=== PATIENT | male | born 1940 | race Two or more races ===

== ENCOUNTER 2023-07-04 13:54 | Emergency (ER) | payer MEDICARE ==
--- NOTE | 2023-07-04 14:01 | ED ---
Extremity Problem HPI - General Source: patient, family, RN notes reviewed Mode of arrival: ambulatory Limitations: no limitations <Malou Valenzuela - Last Filed: 07/04/23 14:00> <Arthur Hernández - Last Filed: 07/04/23 15:49> - General Stated complaint: Pain in right foot Time Seen by Provider: 07/04/23 14:00 - History of Present Illness Initial comments: QN: Patient is a 82 year old male presenting to the ER with a chief complint of right foot swelling. He states swelling for the past couple of days. He reports pain started in the arch of his foot. Denies any known injuries. Patient sent from urgent care to rule out DVT. (Malou Valenzuela) - Related Data Allergies Allergy/AdvReac Type Severity Reaction Status Date / Time tetanus immune globulin Allergy Chest Pain Verified 07/04/23 14:54 Iodinated Contrast Media AdvReac Chest Pain Verified 07/04/23 14:54 Review of Systems ROS Other: All systems not noted in ROS Statement are negative. <Malou Valenzuela - Last Filed: 07/04/23 14:00> ROS Other: All systems not noted in ROS Statement are negative. <Arthur Hernández - Last Filed: 07/04/23 15:49> ROS Statement: Those systems with pertinent positive or pertinent negative responses have been documented in the HPI. Past Medical History Past Medical History: Hypertension Past Surgical History: Cardiac Valve Replacement, Prostate Surgery Past Psychological History: No Psychological Hx Reported Smoking Status: Never smoker Past Alcohol Use History: None Reported Past Drug Use History: None Reported <Malou Valenzuela - Last Filed: 07/04/23 14:00> General Exam <Malou Valenzuela - Last Filed: 07/04/23 14:00> - General Exam Comments Initial Comments: Visual Physical Exam Vital signs reviewed General: Well-appearing, nontoxic, no acute distress. Head: Normocephalic, atraumatic Eyes: PERRLA, EOMI ENT: Airway patent Chest: Nonlabored breathing Skin: No visual rash, normal skin tone Neuro: Alert and oriented 3 Musculoskeletal: Edema to right foot (Malou Valenzuela) Course Vital Signs 07/04/23 14:48 Temperature 98.2 F Pulse Rate 71 Respiratory 18 Rate Blood Pressure 149/87 O2 Sat by Pulse 98 Oximetry Medical Decision Making <Malou Valenzuela - Last Filed: 07/04/23 14:00> - Medical Decision Making I performed the quick note portion of this chart. Electronically signed by Malou Valenzuela PA-C (Malou Valenzuela) Disposition <Malou Valenzuela - Last Filed: 07/04/23 14:00> Is patient prescribed a controlled substance at d/c from ED?: No Time of Disposition: 15:40 <Arthur Hernández - Last Filed: 07/04/23 15:49> Clinical Impression: Leg edema, right Disposition: HOME SELF-CARE Condition: Good Instructions (If sedation given, give patient instructions): Leg Edema (ED) Referrals: Juan Carlos Arnold DO [Primary Care Provider] - 1-2 days
[2023-07-04 15:20] VITALS: RESP 18
--- NOTE | 2023-07-04 15:20 | US ---
EXAMINATION TYPE: US venous doppler duplex LE RT DATE OF EXAM: 07/04/2023 3:08 PM COMPARISON: NONE CLINICAL INDICATION: Male, 82 years old with history of foot swelling; Right foot pain x few days. O n blood thinners. No redness. SIDE PERFORMED: Right TECHNIQUE: The lower extremity deep venous system is examined utilizing real time linear array sonog joe with graded compression, doppler sonography and color-flow sonography. VESSELS IMAGED: Common Femoral Vein Deep Femoral Vein Greater Saphenous Vein * Femoral Vein Popliteal Vein Small Saphenous Vein * Proximal Calf Veins (* superficial vessels) Grayscale, color doppler, spectral doppler imaging performed of the deep veins of the lower extremiti es. There is normal flow, compressibility, vascular waveforms. Right Leg: Negative for DVT IMPRESSION: No evidence of deep venous thrombosis of the right lower extremity.
[2023-07-04 16:54] VITALS: BP 140/86; PULSE 72; TEMP 98.1
== END 2023-07-04 16:52 | disposition home or self-care (01) ==
LOC: EC 13:54
DX: R60.0 Localized edema (principal); I10 Essential (primary) hypertension; Z91.041 Radiographic dye allergy status; Z88.7 Allergy status to serum and vaccine
CPT/HCPCS: 99283

== ENCOUNTER → 2023-09-06 | Outpatient (CLI) | payer MEDICARE ==
--- NOTE | 2023-09-06 15:00 | XR ---
EXAMINATION TYPE: XR chest 2V DATE OF EXAM: 09/06/2023 COMPARISON: None HISTORY: 81-year-old male J18.9 PNEUMONIA, UNSPECIFIED ORGANISM TECHNIQUE: Frontal and lateral views FINDINGS: Heart mildly enlarged. Old healed right-sided rib fracture deformities. Hazy end interstitial densiti es in the mid and lower lungs. Endovascular aortic valve replacement. No consolidation or pleural eff usion. IMPRESSION: Mild cardiomegaly. Interstitial and hazy bilateral lower lung densities. Unable to exclude subtle ear ly interstitial infiltrates.
== END | disposition home or self-care (01) ==
LOC: RADXRMAIN 14:34
PROVIDERS: ATTEND Internal Medicine
DX: I51.7 Cardiomegaly (principal); J18.9 Pneumonia, unspecified organism; J98.4 Other disorders of lung
CPT/HCPCS: 71046

== ENCOUNTER → 2024-02-16 | Outpatient (CLI) | payer MEDICARE ==
[2024-02-16 11:56] VITALS: BP 148/76; PULSE 64; RESP 16; TEMP 97.5
--- NOTE | 2024-02-16 12:31 | P.SLEEP ---
History of Present Illness DATE: 02/16/2024 CONSULTATION/NEW PATIENT EVALUATION HISTORY OF PRESENT ILLNESS/SLEEP-WAKE EVALUATION: 83-year-old gentleman had been evaluated in the sleep center for possible obstructive sleep apnea hypopnea syndrome. Patient has history of obstructive sleep apnea diagnosed about 10 years ago, at that time he was not able to use CPAP. SLEEP SCHEDULE: Usually sleep schedule from 11 PM to 7 AM. FALLING ASLEEP: No problems with falling asleep. DURING SLEEP: Patient sleeps in different positions. Patient had multiple faustina kenings from sleep with nocturia, which improved now with the pharmacotherapy. No history of hypnogogical hallucinations, sleep paralysis, or cataplexy. DURING THE DAY/WAKE STATE: Patient feels significant sleepiness during the day while sitting and reading, watching TV, as a passenger in a car.. [place] sleepiness scale is increased to 12. PAST MEDICAL HISTORY: Hypertension, history of atrial fibrillation, hypothyroidism, prostate cancer. PAST SURGICAL HISTORY: Prostatectomy, cardiac valve replaced. MEDICATIONS: Please see below. SOCIAL HISTORY: Please see below. FAMILY HISTORY: Hypertension. REVIEW OF SYSTEMS: Awakenings from sleep. No fevers. No double vision. No recent chest pain. No shortness of breath. No abdominal pain. No bleeding episodes. No blood in urine. No seizure episodes. PHYSICAL EXAMINATION: GENERAL: A pleasant patient without any distress. VITAL SIGNS: Please see below. HEENT: PERRLA, EOMI. Evaluation of oropharynx showed tongue protrudes midline, low position of soft palate Mallampati 4. NECK: Supple. No JVD. Thyroid is not palpable. 17 inches in circumference. LUNGS: Clear to percussion and to auscultation. Good air exchange. No wheezing o r rhonchi. HEART: S1, S2 regular. No murmurs, gallops or rubs. ABDOMEN: Soft and nontender. Bowel sounds are present. No organomegaly appreciated. EXTREMITIES: No clubbing or cyanosis. AMMUNITION COMPONENTS INSPECTOR: Awake, alert, and oriented x3. Cranial nerves 2 to 7 intact. There is no fasciculation or atrophy noted. No focal deficits observed. ASSESSMENT: 1. History of awakenings from sleep. Extremely low position of soft palate Mallampati 4. Wide neck 17 inches in circumference. Sleepiness with [place] Sleepiness Scale increased to 12. Obstructive sleep apnea hypopnea syndrome. 2. Obesity, BMI 31.5. 3. History of atrial fibrillation. 4. Hypertension. 5 history of prostate cancer, treated by prostatectomy. 6 . Hypothyroidism. 7. Status post cardiac valve replaced. PLAN: 1. Polysomnography for evaluation of patient's breathing during sleep. 2. Following plan after reading sleep study. 3. Preferable position during sleep on the side. 4. No driving if patient feels any sleepiness. Patient is aware of civil and criminal liability for unsafe driving. 5. Sleep hygiene with regular sleep time for at least 7.5-8 hours. 6. Watching weight. Thank you very much for referring this patient for consultation. Sincerely, Arnie Shirley MD, PhD, FAASM. Diplomat of [place] [employer], Sleep Medicine Board by [place] [employer] [place] [employer] [facility] [place] cc: Deborah Mera DENTAL LAB TECHNICIANRoxy Past Medical History Past Medical History: Hypertension History of Any Multi-Drug Resistant Organisms: None Reported Past Surgical History: Cardiac Valve Replacement, Prostate Surgery Past Anesthesia/Blood Transfusion Reactions: No Reported Reaction Past Psychological History: No Psychological Hx Reported Smoking Status: Former smoker Past Alcohol Use History: None Reported Additional Past Alcohol Use History / Comment(s): QUIT SO YEARS AGO. 2 PACKS A DAY X 10 YEARS Past Drug Use History: None Reported - Past Family History Mother Family Medical History: Hypertension Medications and Allergies Home Medications Medication Instructions Recorded Confirmed Type Apixaban [Eliquis] 5 mg PO BID 02/16/24 02/16/24 History Isosorbide Mononitrate [Isosorbide 30 mg PO DAILY 02/16/24 02/16/24 History Mononitrate ER] Levothyroxine Sodium 25 mcg PO DAILY 02/16/24 02/16/24 History Metoprolol Tartrate 25 mg PO BID 02/16/24 02/16/24 History Spironolactone 25 mg PO DAILY 02/16/24 02/16/24 History Vibegron [Gemtesa] 75 mg PO DAILY 02/16/24 02/16/24 History Allergies Allergy/AdvReac Type Severity Reaction Status Date / Time tetanus immune globulin Allergy Chest Pain Verified 07/04/23 14:54 Iodinated Contrast Media AdvReac Chest Pain Verified 07/04/23 14:54 Physical Exam Vitals: Vital Signs Temp Pulse Resp BP Pulse Ox 02/16/24 11:54 97.5 F L 64 16 148/76 96 Intake and Output 02/15/24 02/16/24 02/16/24 22:59 06:59 14:59 Other: Weight 83.461 kg Sleep Note - Sleep Data ESS Total: 12 - Sleep Note Sleep Note: Temperature: 97.5 F Pulse Rate: 64 Respiratory Rate: 16 Blood Pressure: 148/76 SpO2: 96 Height: 5 ft 4 in Weight: 83.461 kg BMI: Neck Circumference: 17
== END ==
LOC: 3 N SLEEP 11:14
PROVIDERS: ATTEND Internal Medicine
CPT/HCPCS: 99211

== ENCOUNTER 2024-10-26 16:25 | Inpatient (IN) | payer MEDICARE ==
[2024-10-26] MEDS: ROCURONIUM 10 MG/ML (5 ML VIAL) IV ONE (16:30)
[2024-10-26] MEDS: ETOMIDATE 2 MG/ML 10 ML VIAL IVP STA (16:30)
[2024-10-26 16:44] LABS: Glucose,Whole Blood 90 mg/dL (70-110)
[2024-10-26 16:52] LABS: Basophils # (A) 0.07 10*3/uL (0.00-0.10); Basophils % (A) 0.7 %; Eosinophils # (A) 0.54 10*3/uL (0.04-0.35); Eosinophils % (A) 5.6 %; HCT 50.4 % (39.6-50.0); HGB 16.0 g/dL (13.0-17.0); Lymphocytes # (A) 2.44 10*3/uL (0.90-5.00); Lymphocytes % (A) 25.3 %; MCH 31.3 pg (27.0-32.0); MCHC 31.7 g/dL (32.0-37.0); MCV 98.4 fL (80.0-97.0); Monocytes # (A) 1.15 10*3/uL (0.20-1.00); Monocytes % (A) 11.9 %; Neutrophils # (A) 5.40 10*3/uL (1.80-7.70); Neutrophils % (A) 55.9 %; Platelet Count 156 10*3/uL (140-440); RBC 5.12 10*6/uL (4.40-5.60); RDW 15.3 % (11.5-14.5); WBC 9.66 10*3/uL (4.50-10.00)
--- NOTE | 2024-10-26 16:56 | XR ---
EXAMINATION TYPE: XR chest 1V portable DATE OF EXAM: 10/26/2024 4:50 PM COMPARISON: Chest radiographs from 09/06/2023 TECHNIQUE: XR chest 1V portable Portable AP radiograph of the chest. CLINICAL INDICATION:Male, 84 years old with history of trauma; pain FINDINGS: Patient is rotated which limits evaluation. Lungs/Pleura: There is no evidence of pleural effusion or pneumothorax. Similar hazy and interstitial densities in the mid to lower lungs. No focal consolidation. Pulmonary vascularity: Unremarkable. Heart/mediastinum: Cardiomediastinal silhouette is enlarged and stable. Endovascular aortic valve re placement. Musculoskeletal: No acute osseous pathology. Remote right-sided rib fractures redemonstrated. Lines/Tubes: Endotracheal tube with distal tip 5.3 cm above the shaina Nasogastric tube with its distal tip and side-port projecting under the diaphragm. IMPRESSION: 1. No acute thoracic process. 2. Mild cardiomegaly with chronic interstitial opacities. 3. Appropriate position of endotracheal and NG tubes. [facility], , 10/26/2024 4:54 PM
--- NOTE | 2024-10-26 16:57 | XR ---
EXAMINATION TYPE: XR pelvis AP view DATE OF EXAM: 10/26/2024 4:51 PM INDICATION: Patient age:Male; 84 years old; Reason for study: Trauma; PHH. pain COMPARISON: None TECHNIQUE: The pelvis was examined in a single projection. FINDINGS: There is no evidence of fracture or dislocation. There is no soft tissue abnormality. No a bnormal calcifications are present. Multilevel degenerative changes of the lower spine. Multiple surg ical clips in the pelvis. IMPRESSION: No acute osseous pathology. [facility], , 10/26/2024 4:55 PM
[2024-10-26 16:59] LABS: ALT 19 U/L (4-49); AST 35 U/L (17-59); African American GFR (CKD) 60 (>60 ml/min/1.73 sqM); Albumin 4.5 g/dL (3.5-5.0); Alkaline Phosphatase 88 U/L (38-126); Anion Gap 15 mmol/L; Blood Urea Nitrogen 28 mg/dL (9-20); Calcium 9.5 mg/dL (8.4-10.2); Carbon Dioxide 20 mmol/L (22-30); Chloride 110 mmol/L (98-107); Creatine Kinase 33 U/L (55-170); Glucose 105 mg/dL (74-99); Non-African American GFR(CKD) 52 (>60 ml/min/1.73 sqM); Potassium 4.5 mmol/L (3.5-5.1); Sodium 145 mmol/L (137-145); Total Protein 7.6 g/dL (6.3-8.2)
[2024-10-26 17:06] LABS: INR 1.1 (<1.2); Partial Thromboplastin Time 22.6 sec (22.0-30.0); Prothrombin Time 11.7 sec (10.0-12.5)
[2024-10-26 17:07] LABS: Lactic Acid, Venous 7.2 mmol/L (0.7-2.0)
--- NOTE | 2024-10-26 17:22 | CT ---
EXAMINATION TYPE: CT brain cspine wo con CT DLP: 1935.3 mGycm, Automated exposure control for dose reduction was used. DATE OF EXAM: 10/26/2024 5:12 PM COMPARISON: None.. CLINICAL INDICATION:Male, 84 years old with history of trauma; found unresponsive, fall?, left suprao rbital contusion, pain TECHNIQUE: Brain: Multiple axial CT images of the brain were obtained without IV contrast. Cspine: Axial CT images from the skull base to the inferior aspect of T2 we obtained without intraven ous contrast. Coronal and sagittal reformatted images were also reviewed. FINDINGS: Brain: Extra-axial spaces: No abnormal extra-axial fluid collections. Ventricular system: Dilatation in proportion to cerebral atrophy. Cerebral parenchyma: Cerebral atrophy. No acute intraparenchymal hemorrhage or mass effect. The kim -white junction is well differentiated. Scattered hypoattenuating areas are seen within the periventr icular white matter. Cerebellum: Unremarkable. Mass effect: No evidence of midline shift. Intracranial vasculature: Atherosclerotic calcifications of the intracranial vessels. Soft tissues: Acute left forehead soft tissue hematoma measuring up to 1 cm thickness. Calvarium/osseous structures: No depressed skull fracture. Paranasal sinuses and mastoid air cells: Mild scattered mucosal thickening and or secretions. The lef t mastoid air cells are clear. Trace inferior right mastoid effusion. Visualized orbits: Orbital contents are intact. Cervical spine: Fracture: None. Osseous structures: Diffuse bone demineralization. Multilevel degenerative disc disease changes with endplate spurring and disc osteophyte complex's. Vertebral alignment: Within normal limits. Spinal canal/Neural Foramina: Broad-based disc bulge at C2-C3 without significant central canal steno sis. Chronic appearing central disc protrusion with calcification with cranial extension at C3-C4 wagner roximately 4 mm along the posterior C3 vertebral body. Resultant mild central canal stenosis. Calcifi ed disc bulge at C4-C5 with mild central canal stenosis. Calcified central disc protrusion at C5-C6 w ith mild central canal stenosis. Calcified disc protrusion with cranial migration at C6-C7 approximat carlito 2 mm on the posterior aspect of the C6 vertebral body. Broad-based disc bulge at C7-T1 with mild central canal stenosis. Facet joint uncovertebral joint arthropathy scattered throughout the cervical spine with varying degrees of neural foraminal stenosis. Neck soft tissues: Prevertebral soft tissues are within normal limits. Other: The airway is patent. Partial visualization of endotracheal and orogastric tubes. Intralobular septal thickening in the visualized bilateral lung apices. Left carotid bulb calcification. IMPRESSION: 1. No acute intracranial process. 2. Nonspecific white matter changes, likely secondary to chronic small vessel ischemic disease. 3. Acute left forehead soft tissue hematoma measuring up to 1 cm thickness. 4. No evidence of cervical spine fracture. 5. Moderate multilevel degenerative disc disease. 6. Partial visualization of endotracheal and orogastric tubes. 7. Biapical intralobular septal thickening. [facility], , 10/26/2024 5:20 PM
[2024-10-26 17:47] LABS: ABG HCO3 23 mmol/L (21-25); ABG PCO2 44 mmHg (35-45); ABG PH 7.32 (7.35-7.45); ABG PO2 236 mmHg (83-108); ABG TCO2 24 mmol/L (19-24); Allen Test Performed? Yes
[2024-10-26 18:04] LABS: Bacteria,Urine Rare /hpf; Bilirubin,Urine Negative (Negative); Blood,Urine Small (Negative); Color,Urine Light Yellow; Glucose,Urine (UA) Negative (Negative); Ketones,Urine Negative (Negative); Leukocyte Esterase,Urine Negative (Negative); Mucus,Urine Few /hpf; Nitrite,Urine Negative (Negative); PH, Urine 5.0 (5.0-8.0); Protein,Urine 1+ (Negative); RBC,Urine 12 /hpf (0-5); Specific Gravity,Urine 1.019 (1.001-1.035); Squamous Epithelial Cell,Urine 5 /hpf (0-4); Urobilinogen,Urine <2.0 mg/dL (<2.0); WBC,Urine 2 /hpf (0-5)
[2024-10-26 18:09] LABS: Barbiturate Screen,Urine Not Detected (NotDetected); Benzodiazepines Screen,Urine Not Detected (NotDetected); Opiate Screen,Urine Not Detected (NotDetected); Oxycodone Screen, Urine Not Detected (NotDetected); Phencyclidine Screen,Urine Not Detected (NotDetected); Tricyclic Antidepressant,Urine Not Detected (NotDetected); Urn Cannabinoid Scrn Not Detected (NotDetected)
[2024-10-26] MEDS ORDERED: NALOXONE 0.4 MG/ML 1 ML VIAL IV PRN (18:50)
--- NOTE | 2024-10-26 18:50 | ED ---
General Adult HPI - General Chief complaint: Fall Stated complaint: Fall/Head Injury Time Seen by Provider: 10/26/24 16:50 Source: EMS Mode of arrival: EMS Limitations: no limitations - History of Present Illness Initial comments: 84-year-old male who presents to the emergency department with altered mental status. [place] He was found facedown unresponsive in a pool of blood and vomit. Patient was not following commands. He had incomprehensible speech. No one witnessed the patient going down. EMS arrived and gave him a GCS of 9. They had to bag him on the way in because they stated that he was having episodes of apnea. Patient had obvious head injury with an abrasion and hematoma to the left forehead. He was placed in a c-collar. Patient found to be on Eliquis for A-fib. No other signs of injury. Remainder of HPI is incomplete due to patients current status - Related Data Home Medications Medication Instructions Recorded Confirmed Apixaban [Eliquis] 5 mg PO BID 02/16/24 10/26/24 Vibegron [Gemtesa] 75 mg PO DAILY 02/16/24 10/26/24 Donepezil [Aricept] 10 mg PO HS 10/26/24 10/26/24 Levothyroxine Sodium [Synthroid] 137 mcg PO DAILY 10/26/24 10/26/24 Previous Rx's Medication Instructions Recorded Acetaminophen Tab [Tylenol] 325 mg PO Q6HR PRN tab 10/31/24 HYDROcodone/APAP 5-325MG [[place] 1 each PO Q6HR PRN #12 tab 10/31/24 5-325] Hyoscyamine Sulfate [Levbid] 0.375 mg PO BID tab 10/31/24 Ipratropium-Albuterol Nebulize 3 ml INHALATION RT-Q4H PRN each 10/31/24 [Duoneb 0.5 mg-3 mg/3 ml Soln] Pantoprazole [Protonix] 40 mg PO DAILY #30 tab 10/31/24 Allergies Allergy/AdvReac Type Severity Reaction Status Date / Time Iodinated Contrast Media AdvReac Chest Pain Verified 10/26/24 17:03 tetanus immune globulin AdvReac Chest Pain Verified 10/26/24 17:03 Review of Systems ROS Statement: Those systems with pertinent positive or pertinent negative responses have been documented in the HPI. ROS Other: All systems not noted in ROS Statement are negative. Past Medical History Past Medical History: Hypertension History of Any Multi-Drug Resistant Organisms: None Reported Past Surgical History: Cardiac Valve Replacement, Prostate Surgery Past Anesthesia/Blood Transfusion Reactions: No Reported Reaction Past Psychological History: No Psychological Hx Reported Smoking Status: Former smoker Past Alcohol Use History: None Reported Past Drug Use History: None Reported - Past Family History Mother Family Medical History: Hypertension General Exam Limitations: altered mental status General appearance: obtunded Head exam: Present: other (Large abrasion and hematoma to the left forehead measuring 6 x 4 cm) Eye exam: Present: other (3 mm, nonreactive) ENT exam: Present: other (Vomit dried to lips) Neck exam: Present: other (C-collar in place) Respiratory exam: Present: other (Patient is assisted with ventilations) Cardiovascular Exam: Present: regular rate, normal rhythm, normal heart sounds. Absent: systolic murmur, diastolic murmur, rubs, gallop, clicks GI/Abdominal exam: Present: soft, normal bowel sounds. Absent: distended, tenderness, guarding, rebound, rigid Neurological exam: Present: altered Course Vital Signs 10/26/24 10/26/24 10/26/24 16:49 17:10 18:50 Temperature 96.9 F L Pulse Rate 72 Pulse Rate [ Stock Broker ] Respiratory 16 Rate Blood Pressure 163/100 Blood Pressure [Right Arm] O2 Sat by Pulse 98 Oximetry Fraction of 100 50 Inspired Oxygen (FIO2) 10/26/24 10/26/24 10/26/24 18:53 18:55 19:00 Temperature Pulse Rate 58 L 59 L 56 L Pulse Rate [ Stock Broker ] Respiratory 16 16 16 Rate Blood Pressure 152/79 152/79 152/79 Blood Pressure [Right Arm] O2 Sat by Pulse 99 99 99 Oximetry Fraction of Inspired Oxygen (FIO2) 10/26/24 10/26/24 10/26/24 19:05 19:22 19:28 Temperature 97.9 F Pulse Rate 56 L 56 L Pulse Rate [ 61 Stock Broker ] Respiratory 16 18 20 Rate Blood Pressure 139/82 129/78 Blood Pressure 124/63 [Right Arm] O2 Sat by Pulse 99 99 99 Oximetry Fraction of 60 Inspired Oxygen (FIO2) 10/26/24 10/26/24 19:58 20:00 Temperature 97.9 F Pulse Rate 58 L Pulse Rate [ Stock Broker ] Respiratory 20 Rate Blood Pressure 134/97 Blood Pressure [Right Arm] O2 Sat by Pulse 97 Oximetry Fraction of 60 60 Inspired Oxygen (FIO2) Procedures - Intubation Sedative: Etomidate Mg Given: 20 Paralytic: Rocuronium Mg Given: 50 Size: 4 ET Tube Size: 7.5 ET Tube Uncuffed: No Tube Secured Depth (cm): 23 Tube Secured Location: lips Tube Placement Confirmation: visualized tube passing through cords, equal breath sounds bilaterally, no breath sounds over epigastrium, confirmation by capnometry Patient Tolerated Procedure: well, no complications Medical Decision Making - Medical Decision Making Was pt. sent in by a medical professional or institution (, PA, WEED SPRAYER, urgent care, hospital, or [place] health [place] facility...) When possible be specific @ -No Did you speak to anyone other than the patient for history (EMS, parent, family, police, friend...)? What history was obtained from this source @ -Spoke with EMS for history Did you review nursing and triage notes (agree or disagree)? Why? @ -I reviewed and agree with nursing and triage notes Were old charts reviewed (outside hosp., previous admission, EMS record, old EKG, old radiological studies, urgent care reports/EKG's, [place] health care facility records)? Report findings @ -No old charts were reviewed Differential Diagnosis (chest pain, altered mental status, abdominal pain women, abdominal pain men, vaginal bleeding, weakness, fever, dyspnea, syncope, headache, dizziness, GI bleed, back pain, seizure, CVA, palpatations, mental health, musculoskeletal)? @ -Differential Altered Mental Status: Hypoglycemia, DKA, hypercapnia, ETOH, overdose, CO poisoning, trauma, myxedema coma, HTN encephalopathy, infection, encephalitis, psychosis, intercranial hemorrhage, hepatic encephalopathy, meningitis, CVA, this is not meant to be an all-inclusive list EKG interpreted by me (3pts min.). @ -EKG at 1721 demonstrates A-fib with a rate of 69. QRS 103. QTc of 440. PVC present. Mild ST elevation in aVF with no reciprocal changes Repeat EKG done at 1854 continues to demonstrate A-fib with a rate of 55. QRS 102. QTc of 461. No acute ST segment elevations or depressions X-rays interpreted by me (1pt min.). @ -Chest x-ray completed which demonstrates no acute process. Pelvic x-ray demonstrates no acute process. CT interpreted by me (1pt min.). @ -CT of the brain demonstrates no acute process U/S interpreted by me (1pt. min.). @ -None done What testing was considered but not performed or refused? (CT, X-rays, U/S, labs)? Why? @ -None What meds were considered but not given or refused? Why? @ -None Did you discuss the management of the patient with other professionals (professionals i.e. DrHuseyin, PA, WEED SPRAYER, lab, RT, psych nurse, social services counselor, ict sales representative, teacher, branch lending officer, rn case manager)? Give summary @ -Spoke with Dr. Lyles and Dr. Spann Was smoking cessation discussed for >3mins.? @ -No Was critical care preformed (if so, how long)? @ -40 minutes for management of unresponsive patient Were there social determinants of health that impacted care today? How? (Homelessness, low income, unemployed, alcoholism, drug addiction, transportation, low edu. Level, literacy, decrease access to med. care, shelter, rehab)? @ -No Was there de-escalation of care discussed even if they declined (Discuss DNR or withdrawal of care, Hospice)? DNR status @ -Yes and family would like to keep the patient a full code What co-morbidities impacted this encounter? (DM, HTN, Smoking, COPD, CAD, Cancer, CVA, ARF, Chemo, Hep., AIDS, mental health diagnosis, sleep apnea, morbid obesity)? @ -None Was patient admitted / discharged? Hospital course, mention meds given and route, prescriptions, significant lab abnormalities, going to OR and other pertinent info. @ -Upon arrival patient seen and evaluated in trauma 1. He is activated as a level 1 trauma due to altered mental status with possible relation to injury. We did page Dr. Spann as she is on-call. She does call back and states that she is in the OR with a another trauma and recommends that we call back up. Dr. Armijo is paged. He states that he is an hour away from the hospital and did not realize that there was a backup coverage schedule. He does not feel that he is on back up and is unavailable to help. We then called and spoke with Dr. Spann once again who states that she cannot come down to the ER as she is actively operating. Patient was placed into trauma 1. He has vomit noted on his face. He does require assisted ventilation therefore the patient is intub ated. Chest and pelvic x-ray are performed which demonstrates no acute process. CT of the head was performed which also demonstrates no acute process. Patient is sedated on propofol. Laboratory studies are conducted and reviewed. Lactic acid is 7.2. Prolactin is pending. He was given Ancef. Patient is admitted. I spoke with Dr. Lyles who does accept the patient into the ICU. I spoke w ith Dr. Spann who will admit the patient as he was a trauma activation. I spoke with Dr. Arnold will be on consult for medicine. Cardiology will be placed on consult as well as neurology.. Patient admitted with a guarded prognosis Undiagnosed new problem with uncertain prognosis? @ -No Drug Therapy requiring intensive monitoring for toxicity (Heparin, Nitro, Insulin, Cardizem)? @ -No Were any procedures done? @ -No Diagnosis/symptom? @ -Acute vent dependence, acute encephalopathy, blunt head trauma, lactic acidosis Acute, or Chronic, or Acute on Chronic? @ -Acute Uncomplicated (without systemic symptoms) or Complicated (systemic symptoms)? @ -Complicated Side effects of treatment? @ -No Exacerbation, Progression, or Severe Exacerbation? @ -No Poses a threat to life or bodily function? How? (Chest pain, [place], MA, pneumonia, PE, COPD, DKA, ARF, appy, cholecystitis, CVA, Diverticulitis, Homicidal, Suicidal, threat to staff... and all critical care pts) @ -Yes this patient is on the ventilator - Lab Data Result diagrams: 10/29/24 06:00 10/29/24 06:00 Lab Results 10/26/24 10/26/24 10/26/24 Range/Units 16:30 16:32 16:32 WBC 9.66 (4.50-10.00) 10*3/uL RBC 5.12 (4.40-5.60) 10*6/uL Hgb 16.0 (13.0-17.0) g/dL Hct 50.4 H (39.6-50.0) % MCV 98.4 H (80.0-97.0) fL MCH 31.3 (27.0-32.0) pg MCHC 31.7 L (32.0-37.0) g/dL Plt Count 156 (140-440) 10*3/uL MPV 10.4 (9.5-12.2) fL Immature Gran % (Auto) 0.6 % Neutrophils % 55.9 % Lymphocytes % 25.3 % Monocytes % 11.9 % Eosinophils % 5.6 % Basophils % 0.7 % Immature Gran # 0.06 H (0.00-0.04) 10*3/uL Neutrophils # 5.40 (1.80-7.70) 10*3/uL Lymphocytes # 2.44 (0.90-5.00) 10*3/uL Monocytes # 1.15 H (0.20-1.00) 10*3/uL Eosinophils # 0.54 H (0.04-0.35) 10*3/uL Basophils # 0.07 (0.00-0.10) 10*3/uL PT 11.7 (10.0-12.5) sec INR 1.1 (<1.2) APTT 22.6 (22.0-30.0) sec Sample Site ABG pH (7.35-7.45) ABG pCO2 (35-45) mmHg ABG pO2 (83-108) mmHg ABG HCO3 (21-25) mmol/L ABG Total CO2 (19-24) mmol/L ABG O2 Saturation (94-97) % ABG Base Excess mmol/L Asaf Test Hemoglobin (13.0-17.5) gm/dL FiO2 % Sodium (137-145) mmol/L Potassium (3.5-5.1) mmol/L Chloride (98-107) mmol/L Carbon Dioxide (22-30) mmol/L Anion Gap mmol/L BUN (9-20) mg/dL Creatinine (0.66-1.25) mg/dL Est GFR (CKD-EPI)AfAm (>60 ml/min/1.73 sqM) Est GFR (CKD-EPI)NonAf (>60 ml/min/1.73 sqM) Glucose (74-99) mg/dL POC Glucose (mg/dL) (70-110) mg/dL POC Glu Chemical Preparer ID Lactic Ac Sepsis Rflx Plasma Lactic Acid David (0.7-2.0) mmol/L Calcium (8.4-10.2) mg/dL Total Bilirubin (0.2-1.3) mg/dL AST (17-59) U/L ALT (4-49) U/L Alkaline Phosphatase (38-126) U/L Ammonia (<30) umol/L Creatine Kinase (55-170) U/L Troponin I (0.000-0.034) ng/mL NT-Pro-B Natriuret Pep pg/mL Total Protein (6.3-8.2) g/dL Albumin (3.5-5.0) g/dL TSH (0.465-4.680) mIU/L Total T3 (60.0-180.0) ng/dL Prolactin (2.100-17.000) ng/mL Urine Color Urine Appearance (Clear) Urine pH (5.0-8.0) Ur Specific [place] (1.001-1.035) Urine Protein (Negative) Urine Glucose (UA) (Negative) Urine Ketones (Negative) Urine Blood (Negative) Urine Nitrite (Negative) Urine Bilirubin (Negative) Urine Urobilinogen (<2.0) mg/dL Ur Leukocyte Esterase (Negative) Urine RBC (0-5) /hpf Urine WBC (0-5) /hpf Ur Squamous Epith Cells (0-4) /hpf Urine Bacteria (None) /hpf Urine Mucus (None) /hpf Urine Opiates Screen (NotDetected) Ur Oxycodone Screen (NotDetected) Urine Methadone Screen (NotDetected) Ur Barbiturates Screen (NotDetected) U Tricyclic Antidepress (NotDetected) Ur Phencyclidine Scrn (NotDetected) Ur Amphetamines Screen (NotDetected) U Methamphetamines Scrn (NotDetected) U Benzodiazepines Scrn (NotDetected) Urine Cocaine Screen (NotDetected) U Marijuana (THC) Screen (NotDetected) Serum Alcohol mg/dL Blood Type AB Positive Blood Type Confirm Blood Type Recheck No Previous Record Bld Type Recheck Status CABO Indicated Antibody Screen NEGATIVE Spec Expiration Date 10/29/2024 - 232910/26/24 10/26/24 10/26/24 Range/Units 16:32 16:32 16:32 WBC (4.50-10.00) 10*3/uL RBC (4.40-5.60) 10*6/uL Hgb (13.0-17.0) g/dL Hct (39.6-50.0) % MCV (80.0-97.0) fL MCH (27.0-32.0) pg MCHC (32.0-37.0) g/dL Plt Count (140-440) 10*3/uL MPV (9.5-12.2) fL Immature Gran % (Auto) % Neutrophils % % Lymphocytes % % Monocytes % % Eosinophils % % Basophils % % Immature Gran # (0.00-0.04) 10*3/uL Neutrophils # (1.80-7.70) 10*3/uL Lymphocytes # (0.90-5.00) 10*3/uL Monocytes # (0.20-1.00) 10*3/uL Eosinophils # (0.04-0.35) 10*3/uL Basophils # (0.00-0.10) 10*3/uL PT (10.0-12.5) sec INR (<1.2) APTT (22.0-30.0) sec Sample Site ABG pH (7.35-7.45) ABG pCO2 (35-45) mmHg ABG pO2 (83-108) mmHg ABG HCO3 (21-25) mmol/L ABG Total CO2 (19-24) mmol/L ABG O2 Saturation (94-97) % ABG Base Excess mmol/L Asaf Test Hemoglobin (13.0-17.5) gm/dL FiO2 % Sodium 145 (137-145) mmol/L Potassium 4.5 (3.5-5.1) mmol/L Chloride 110 H (98-107) mmol/L Carbon Dioxide 20 L (22-30) mmol/L Anion Gap 15 mmol/L BUN 28 H (9-20) mg/dL Creatinine 1.26 H (0.66-1.25) mg/dL Est GFR (CKD-EPI)AfAm 60 (>60 ml/min/1.73 sqM) Est GFR (CKD-EPI)NonAf 52 (>60 ml/min/1.73 sqM) Glucose 105 H (74-99) mg/dL POC Glucose (mg/dL) (70-110) mg/dL POC Glu Chemical Preparer ID Lactic Ac Sepsis Rflx Plasma Lactic Acid David 7.2 H* (0.7-2.0) mmol/L Calcium 9.5 (8.4-10.2) mg/dL Total Bilirubin 1.2 (0.2-1.3) mg/dL AST 35 (17-59) U/L ALT 19 (4-49) U/L Alkaline Phosphatase 88 (38-126) U/L Ammonia 40 H (<30) umol/L Creatine Kinase 33 L (55-170) U/L Troponin I <0.012 (0.000-0.034) ng/mL NT-Pro-B Natriuret Pep pg/mL Total Protein 7.6 (6.3-8.2) g/dL Albumin 4.5 (3.5-5.0) g/dL TSH (0.465-4.680) mIU/L Total T3 (60.0-180.0) ng/dL Prolactin (2.100-17.000) ng/mL Urine Color Urine Appearance (Clear) Urine pH (5.0-8.0) Ur Specific [place] (1.001-1.035) Urine Protein (Negative) Urine Glucose (UA) (Negative) Urine Ketones (Negative) Urine Blood (Negative) Urine Nitrite (Negative) Urine Bilirubin (Negative) Urine Urobilinogen (<2.0) mg/dL Ur Leukocyte Esterase (Negative) Urine RBC (0-5) /hpf Urine WBC (0-5) /hpf Ur Squamous Epith Cells (0-4) /hpf Urine Bacteria (None) /hpf Urine Mucus (None) /hpf Urine Opiates Screen (NotDetected) Ur Oxycodone Screen (NotDetected) Urine Methadone Screen (NotDetected) Ur Barbiturates Screen (NotDetected) U Tricyclic Antidepress (NotDetected) Ur Phencyclidine Scrn (NotDetected) Ur Amphetamines Screen (NotDetected) U Methamphetamines Scrn (NotDetected) U Benzodiazepines Scrn (NotDetected) Urine Cocaine Screen (NotDetected) U Marijuana (THC) Screen (NotDetected) Serum Alcohol <10 mg/dL Blood Type Blood Type Confirm Blood Type Recheck Bld Type Recheck Status Antibody Screen Spec Expiration Date 10/26/24 10/26/24 10/26/24 Range/Units 16:32 16:43 16:43 WBC (4.50-10.00) 10*3/uL RBC (4.40-5.60) 10*6/uL Hgb (13.0-17.0) g/dL Hct (39.6-50.0) % MCV (80.0-97.0) fL MCH (27.0-32.0) pg MCHC (32.0-37.0) g/dL Plt Count (140-440) 10*3/uL MPV (9.5-12.2) fL Immature Gran % (Auto) % Neutrophils % % Lymphocytes % % Monocytes % % Eosinophils % % Basophils % % Immature Gran # (0.00-0.04) 10*3/uL Neutrophils # (1.80-7.70) 10*3/uL Lymphocytes # (0.90-5.00) 10*3/uL Monocytes # (0.20-1.00) 10*3/uL Eosinophils # (0.04-0.35) 10*3/uL Basophils # (0.00-0.10) 10*3/uL PT (10.0-12.5) sec INR (<1.2) APTT (22.0-30.0) sec Sample Site ABG pH (7.35-7.45) ABG pCO2 (35-45) mmHg ABG pO2 (83-108) mmHg ABG HCO3 (21-25) mmol/L ABG Total CO2 (19-24) mmol/L ABG O2 Saturation (94-97) % ABG Base Excess mmol/L Asaf Test Hemoglobin (13.0-17.5) gm/dL FiO2 % Sodium (137-145) mmol/L Potassium (3.5-5.1) mmol/L Chloride (98-107) mmol/L Carbon Dioxide (22-30) mmol/L Anion Gap mmol/L BUN (9-20) mg/dL Creatinine (0.66-1.25) mg/dL Est GFR (CKD-EPI)AfAm (>60 ml/min/1.73 sqM) Est GFR (CKD-EPI)NonAf (>60 ml/min/1.73 sqM) Glucose (74-99) mg/dL POC Glucose (mg/dL) 90 (70-110) mg/dL POC Glu Chemical Preparer ID Melissa Hopson Lactic Ac Sepsis Rflx Plasma Lactic Acid David (0.7-2.0) mmol/L Calcium (8.4-10.2) mg/dL Total Bilirubin (0.2-1.3) mg/dL AST (17-59) U/L ALT (4-49) U/L Alkaline Phosphatase (38-126) U/L Ammonia (<30) umol/L Creatine Kinase (55-170) U/L Troponin I (0.000-0.034) ng/mL NT-Pro-B Natriuret Pep 2790 pg/mL Total Protein (6.3-8.2) g/dL Albumin (3.5-5.0) g/dL TSH (0.465-4.680) mIU/L Total T3 114.0 (60.0-180.0) ng/dL Prolactin 90.400 H (2.100-17.000) ng/mL Urine Color Urine Appearance (Clear) Urine pH (5.0-8.0) Ur Specific [place] (1.001-1.035) Urine Protein (Negative) Urine Glucose (UA) (Negative) Urine Ketones (Negative) Urine Blood (Negative) Urine Nitrite (Negative) Urine Bilirubin (Negative) Urine Urobilinogen (<2.0) mg/dL Ur Leukocyte Esterase (Negative) Urine RBC (0-5) /hpf Urine WBC (0-5) /hpf Ur Squamous Epith Cells (0-4) /hpf Urine Bacteria (None) /hpf Urine Mucus (None) /hpf Urine Opiates Screen (NotDetected) Ur Oxycodone Screen (NotDetected) Urine Methadone Screen (NotDetected) Ur Barbiturates Screen (NotDetected) U Tricyclic Antidepress (NotDetected) Ur Phencyclidine Scrn (NotDetected) Ur Amphetamines Screen (NotDetected) U Methamphetamines Scrn (NotDetected) U Benzodiazepines Scrn (NotDetected) Urine Cocaine Screen (NotDetected) U Marijuana (THC) Screen (NotDetected) Serum Alcohol mg/dL Blood Type Blood Type Confirm Blood Type Recheck Bld Type Recheck Status Antibody Screen Spec Expiration Date 10/26/24 10/26/24 10/26/24 Range/Units 16:43 16:54 17:07 WBC (4.50-10.00) 10*3/uL RBC (4.40-5.60) 10*6/uL Hgb (13.0-17.0) g/dL Hct (39.6-50.0) % MCV (80.0-97.0) fL MCH (27.0-32.0) pg MCHC (32.0-37.0) g/dL Plt Count (140-440) 10*3/uL MPV (9.5-12.2) fL Immature Gran % (Auto) % Neutrophils % % Lymphocytes % % Monocytes % % Eosinophils % % Basophils % % Immature Gran # (0.00-0.04) 10*3/uL Neutrophils # (1.80-7.70) 10*3/uL Lymphocytes # (0.90-5.00) 10*3/uL Monocytes # (0.20-1.00) 10*3/uL Eosinophils # (0.04-0.35) 10*3/uL Basophils # (0.00-0.10) 10*3/uL PT (10.0-12.5) sec INR (<1.2) APTT (22.0-30.0) sec Sample Site ABG pH (7.35-7.45) ABG pCO2 (35-45) mmHg ABG pO2 (83-108) mmHg ABG HCO3 (21-25) mmol/L ABG Total CO2 (19-24) mmol/L ABG O2 Saturation (94-97) % ABG Base Excess mmol/L Asaf Test Hemoglobin (13.0-17.5) gm/dL FiO2 % Sodium (137-145) mmol/L Potassium (3.5-5.1) mmol/L Chloride (98-107) mmol/L Carbon Dioxide (22-30) mmol/L Anion Gap mmol/L BUN (9-20) mg/dL Creatinine (0.66-1.25) mg/dL Est GFR (CKD-EPI)AfAm (>60 ml/min/1.73 sqM) Est GFR (CKD-EPI)NonAf (>60 ml/min/1.73 sqM) Glucose (74-99) mg/dL POC Glucose (mg/dL) (70-110) mg/dL POC Glu Chemical Preparer ID Lactic Ac Sepsis Rflx Y Plasma Lactic Acid David (0.7-2.0) mmol/L Calcium (8.4-10.2) mg/dL Total Bilirubin (0.2-1.3) mg/dL AST (17-59) U/L ALT (4-49) U/L Alkaline Phosphatase (38-126) U/L Ammonia (<30) umol/L Creatine Kinase (55-170) U/L Troponin I (0.000-0.034) ng/mL NT-Pro-B Natriuret Pep pg/mL Total Protein (6.3-8.2) g/dL Albumin (3.5-5.0) g/dL TSH 0.271 L (0.465-4.680) mIU/L Total T3 (60.0-180.0) ng/dL Prolactin (2.100-17.000) ng/mL Urine Color Urine Appearance (Clear) Urine pH (5.0-8.0) Ur Specific [place] (1.001-1.035) Urine Protein (Negative) Urine Glucose (UA) (Negative) Urine Ketones (Negative) Urine Blood (Negative) Urine Nitrite (Negative) Urine Bilirubin (Negative) Urine Urobilinogen (<2.0) mg/dL Ur Leukocyte Esterase (Negative) Urine RBC (0-5) /hpf Urine WBC (0-5) /hpf Ur Squamous Epith Cells (0-4) /hpf Urine Bacteria (None) /hpf Urine Mucus (None) /hpf Urine Opiates Screen (NotDetected) Ur Oxycodone Screen (NotDetected) Urine Methadone Screen (NotDetected) Ur Barbiturates Screen (NotDetected) U Tricyclic Antidepress (NotDetected) Ur Phencyclidine Scrn (NotDetected) Ur Amphetamines Screen (NotDetected) U Methamphetamines Scrn (NotDetected) U Benzodiazepines Scrn (NotDetected) Urine Cocaine Screen (NotDetected) U Marijuana (THC) Screen (NotDetected) Serum Alcohol mg/dL Blood Type Blood Type Confirm AB Positive Blood Type Recheck Bld Type Recheck Status Antibody Screen Spec Expiration Date 06/26/25 06/26/25 06/26/25 Range/Units 17:33 17:40 17:40 WBC (4.50-10.00) 10*3/uL RBC (4.40-5.60) 10*6/uL Hgb (13.0-17.0) g/dL Hct (39.6-50.0) % MCV (80.0-97.0) fL MCH (27.0-32.0) pg MCHC (32.0-37.0) g/dL Plt Count (140-440) 10*3/uL MPV (9.5-12.2) fL Immature Gran % (Auto) % Neutrophils % % Lymphocytes % % Monocytes % % Eosinophils % % Basophils % % Immature Gran # (0.00-0.04) 10*3/uL Neutrophils # (1.80-7.70) 10*3/uL Lymphocytes # (0.90-5.00) 10*3/uL Monocytes # (0.20-1.00) 10*3/uL Eosinophils # (0.04-0.35) 10*3/uL Basophils # (0.00-0.10) 10*3/uL PT (10.0-12.5) sec INR (<1.2) APTT (22.0-30.0) sec Sample Site Right Radial ABG pH 7.32 L (7.35-7.45) ABG pCO2 44 (35-45) mmHg ABG pO2 236 H (83-108) mmHg ABG HCO3 23 (21-25) mmol/L ABG Total CO2 24 (19-24) mmol/L ABG O2 Saturation 99.8 H (94-97) % ABG Base Excess -3.6 mmol/L Asaf Test Yes Hemoglobin 15.3 (13.0-17.5) gm/dL FiO2 100 % Sodium (137-145) mmol/L Potassium (3.5-5.1) mmol/L Chloride (98-107) mmol/L Carbon Dioxide (22-30) mmol/L Anion Gap mmol/L BUN (9-20) mg/dL Creatinine (0.66-1.25) mg/dL Est GFR (CKD-EPI)AfAm (>60 ml/min/1.73 sqM) Est GFR (CKD-EPI)NonAf (>60 ml/min/1.73 sqM) Glucose (74-99) mg/dL POC Glucose (mg/dL) (70-110) mg/dL POC Glu Chemical Preparer ID Lactic Ac Sepsis Rflx Plasma Lactic Acid David (0.7-2.0) mmol/L Calcium (8.4-10.2) mg/dL Total Bilirubin (0.2-1.3) mg/dL AST (17-59) U/L ALT (4-49) U/L Alkaline Phosphatase (38-126) U/L Ammonia (<30) umol/L Creatine Kinase (55-170) U/L Troponin I (0.000-0.034) ng/mL NT-Pro-B Natriuret Pep pg/mL Total Protein (6.3-8.2) g/dL Albumin (3.5-5.0) g/dL TSH (0.465-4.680) mIU/L Total T3 (60.0-180.0) ng/dL Prolactin (2.100-17.000) ng/mL Urine Color Light Yellow Urine Appearance Cloudy (Clear) Urine pH 5.0 (5.0-8.0) Ur Specific [place] 1.019 (1.001-1.035) Urine Protein 1+ H (Negative) Urine Glucose (UA) Negative (Negative) Urine Ketones Negative (Negative) Urine Blood Small H (Negative) Urine Nitrite Negative (Negative) Urine Bilirubin Negative (Negative) Urine Urobilinogen <2.0 (<2.0) mg/dL Ur Leukocyte Esterase Negative (Negative) Urine RBC 12 H (0-5) /hpf Urine WBC 2 (0-5) /hpf Ur Squamous Epith Cells 5 H (0-4) /hpf Urine Bacteria Rare H (None) /hpf Urine Mucus Few H (None) /hpf Urine Opiates Screen Not Detected (NotDetected) Ur Oxycodone Screen Not Detected (NotDetected) Urine Methadone Screen Not Detected (NotDetected) Ur Barbiturates Screen Not Detected (NotDetected) U Tricyclic Antidepress Not Detected (NotDetected) Ur Phencyclidine Scrn Not Detected (NotDetected) Ur Amphetamines Screen Not Detected (NotDetected) U Methamphetamines Scrn Not Detected (NotDetected) U Benzodiazepines Scrn Not Detected (NotDetected) Urine Cocaine Screen Not Detected (NotDetected) U Marijuana (THC) Screen Not Detected (NotDetected) Serum Alcohol mg/dL Blood Type Blood Type Confirm Blood Type Recheck Bld Type Recheck Status Antibody Screen Spec Expiration Date Disposition Clinical Impression: Fall, Scalp hematoma, Acute encephalopathy, Vomiting, Ventilator dependent Disposition: ADMITTED IP TO THIS HOSP Condition: Stable Is patient prescribed a controlled substance at d/c from ED?: No Time of Disposition: 18:50 Decision to Admit Reason: Admit from [facility] Decision Date: 10/26/24 Decision Time: 18:50
[2024-10-26] MEDS ORDERED: IPRATROPIUM-ALBUTEROL 3 ML NEB INHALATION PRN (18:55)
[2024-10-26 19:54] LABS: NT-Pro-B-Type Natriuretic Pept 2790.0 pg/mL
[2024-10-26 19:58] LABS: Glucose,Whole Blood 104 mg/dL (70-110)
[2024-10-26] MEDS ORDERED: Potassium Replacement Protocol 1 EACH MISC MISCELLANE PRN (21:12)
[2024-10-26] MEDS ORDERED: Magnesium Replacement Protocol 1 EACH MISC MISCELLANE PRN (21:12)
[2024-10-26] MEDS: CHLORHEXIDINE GLUCONATE 15 ML CUP MUCOUS MEM SCH (22:07)
--- NOTE | 2024-10-26 23:20 | P.CNPUL ---
History of Present Illness Consult date: 10/26/24 History of present illness: This is a 84-year-old male patient, known history of chronic atrial fibrillation, known history of aortic valve disease and the patient has un dergone a TAVR procedure through [facility] few years back. The patient has also previous history of hypertension, prostate cancer and the patient undergone prostatectomy and hypothyroidism. The patient was in a good state of health. The patient [place] and he was found to be facedown, unresponsive in a pool of vomit. The patient received back ventilation the patient was brought into the emergency department. The patient was unresponsive, unable to speak and he is GCS score was 9. He did have signs of an obvious trauma to his head with any obvious area of abrasion or hematoma in the left forehead. A c-collar on the neck was applied. Following that, the patient was intubated and placed on the mechanical ventilator. Workup was initiated. The patient was found to be in sinus bradycardia with an atrial fibrillation rhythm. His current heart rate is in the mid 50s. The patient was given his CBC that showed no significant abnormalities. Normal coagulation profile. Sodium was at 145, BUN was 28 with a creatinine of 1.26 and a lactic acid level was initially at 7.2 dropped down to 1.1 following IV fluids. Calcium level was at 9.5. Normal LFTs. Normal troponins. proBNP level was 2790. UA was showing +1 protein, 2 WBCs and urine drug screen was negative and alcohol level was less than less than 10. Initial chest x-ray showed mild cardiomegaly along with increased interstitial markings bilaterally. EKG was in a good location. Postintubation, the patient was placed on assist-control mode rate of 20, tidal volume of 450, FiO2 of 100% and PEEP of 5. Blood gas showed a pH of 7.32 with a PCO2 of 44 and PO2 of 236. CAT scan of the head and the cervical spine showed no evidence of any fractures. No acute process. Nonsp ecific white matter changes, acute left forehead soft tissue hematoma and no evidence of any cervical spine fracture at the patient has multilevel degenerative disc disease. The patient also had biapical interlobular septal thickening. X-ray of the pelvis showed no evidence of any osseous fractures. At this point in time, the patient is in the intensive care unit, sedated with propofol running at 50 mcg/kg/min. Hemodynamically stable. Producing adequate amount of urine output and the patient is currently on IV fluids at a rate of 100 cc an hour. The patient is also on IV cefazolin. Afebrile. Pupils are equal and reactive to light. The patient is withdrawing to deep painful stimulation. No facial asymmetry. Review of Systems ROS unobtainable: due to endotracheal tube Past Medical History Past Medical History: Atrial Fibrillation, Cancer (Prostate cancer with a previous prostatectomy), Hypertension, Sleep Apnea/CPAP/BIPAP, Thyroid Disorder Additional Past Medical History / Comment(s): Previous TAVR for Aortic valve disease History of Any Multi-Drug Resistant Organisms: None Reported Past Surgical History: Cardiac Valve Replacement, Heart Catheterization, Prostate Surgery Additional Past Surgical History / Comment(s): TAVR in 2021 Past Anesthesia/Blood Transfusion Reactions: No Reported Reaction Past Psychological History: Anxiety Smoking Status: Former smoker Past Alcohol Use History: None Reported Additional Past Alcohol Use History / Comment(s): QUIT SO YEARS AGO. 2 PACKS A DAY X 10 YEARS Past Drug Use History: None Reported - Past Family History Mother Family Medical History: Hypertension Medications and Allergies Home Medications Medication Instructions Recorded Confirmed Type Apixaban [Eliquis] 5 mg PO BID 02/16/24 10/26/24 History Metoprolol Tartrate 25 mg PO BID 02/16/24 10/26/24 History Vibegron [Gemtesa] 75 mg PO DAILY 02/16/24 10/26/24 History Donepezil [Aricept] 10 mg PO HS 10/26/24 10/26/24 History Levothyroxine Sodium [Synthroid] 137 mcg PO DAILY 10/26/24 10/26/24 History Allergies Allergy/AdvReac Type Severity Reaction Status Date / Time Iodinated Contrast Media AdvReac Chest Pain Verified 10/26/24 17:03 tetanus immune globulin AdvReac Chest Pain Verified 10/26/24 17:03 Physical Exam Vitals: Vital Signs Temp Pulse Pulse Resp BP BP Pulse Ox 10/26/24 22:00 56 L 19 145/83 99 10/26/24 21:15 10/26/24 21:00 54 L 20 139/79 98 10/26/24 20:00 97.9 F 58 L 20 134/97 97 10/26/24 19:58 10/26/24 19:28 97.9 F 61 20 124/63 99 10/26/24 19:22 56 L 18 129/78 99 10/26/24 19:05 56 L 16 139/82 99 10/26/24 19:00 56 L 16 152/79 99 10/26/24 18:55 59 L 16 152/79 99 10/26/24 18:53 58 L 16 152/79 99 10/26/24 18:50 10/26/24 17:10 10/26/24 16:49 96.9 F L 72 16 163/100 98 FiO2 10/26/24 22:00 10/26/24 21:15 60 10/26/24 21:00 10/26/24 20:00 60 10/26/24 19:58 60 10/26/24 19:28 60 10/26/24 19:22 10/26/24 19:05 10/26/24 19:00 10/26/24 18:55 10/26/24 18:53 10/26/24 18:50 50 10/26/24 17:10 100 10/26/24 16:49 Intake and Output 10/26/24 10/26/24 10/27/24 14:59 22:59 06:59 Intake Total 100.000 Output Total 94 Balance 6.000 Intake: Intake, IV Titration 100.000 Amount propofoL 1,000 mg In 100.000 Empty Bag 1 bag @ 15 MCG/ KG/MIN 7.552 mls/hr IV . [id number] [facility] Rx#:[id number] Output: Urine 94 Other: Voiding Method Indwelling Catheter Weight 89.811 kg The patient skin abrasion over the left forehead in addition to an area of hematoma. Currently sedated with propofol. Intubated on mechanical ventilator. Orotracheal orogastric tube are both in place. Head exam is unremarkable. No scleral icterus or corneal arcus noted. Neck is without jugular venous distension, thyromegaly, or carotid bruits. Car otid upstrokes are brisk bilaterally. Wearing a wrist hard collar Lungs are clear to auscultation and percussion. Cardiac exam reveals the PMI to be normally sized and situated. Rhythm is irregular. First and second heart sounds normal. No murmurs, rubs or gallops. Abdominal exam reveals normal bowel sounds, no masses, no organomegaly and no aortic enlargement. Extremities are nonedematous and both femoral and pedal pulses are normal. Right thigh hematoma , left hand skin tear, left arm abrasion Examination of the skin revealed no evidence of significant rashes, suspicious appearing nevi or other concerning lesions. Neurologically, the patient is awake and alert and the patient does not have any focal neurological deficit. Cranial nerves are essentially intact. Results - Laboratory Findings CBC and BMP: 10/26/24 16:32 10/26/24 16:32 ABG ABG pH 7.32 (7.35-7.45) L 10/26/24 17:33 ABG pCO2 44 mmHg (35-45) 10/26/24 17:33 ABG pO2 236 mmHg (83-108) H 10/26/24 17:33 ABG O2 Saturation 99.8 % (94-97) H 10/26/24 17:33 PT/INR, D-dimer PT 11.7 sec (10.0-12.5) 10/26/24 16:32 INR 1.1 (<1.2) 10/26/24 16:32 Abnormal lab findings: Abnormal Labs 10/26/24 10/26/24 10/26/24 16:32 16:32 16:32 Hct 50.4 H MCV 98.4 H MCHC 31.7 L Immature Gran # 0.06 H Monocytes # 1.15 H Eosinophils # 0.54 H ABG pH ABG pO2 ABG O2 Saturation Chloride 110 H Carbon Dioxide 20 L BUN 28 H Creatinine 1.26 H Glucose 105 H Plasma Lactic Acid David 7.2 H* Ammonia 40 H Creatine Kinase 33 L Urine Protein Urine Blood Urine RBC Ur Squamous Epith Cells Urine Bacteria Urine Mucus 10/26/24 10/26/24 17:33 17:40 Hct MCV MCHC Immature Gran # Monocytes # Eosinophils # ABG pH 7.32 L ABG pO2 236 H ABG O2 Saturation 99.8 H Chloride Carbon Dioxide BUN Creatinine Glucose Plasma Lactic Acid David Ammonia Creatine Kinase Urine Protein 1+ H Urine Blood Small H Urine RBC 12 H Ur Squamous Epith Cells 5 H Urine Bacteria Rare H Urine Mucus Few H - Diagnostic Findings Chest x-ray: image reviewed Assessment and Plan Plan: Acute loss in consciousness, likely cardiogenic in nature, currently under investigation. The patient is hemodynamically stable. Cardiac rhythm is atrial fibrillation with some underlying bradycardia. No acute ST segment elevation. Troponins are negative. The patient is known to have valvular heart disease with a previous TAVR. Currently intubated on the mechanical ventilator. No pressors. CAT scan of the brain shows no acute abnormalities and the patient has a hematoma over the left forehead along with skin abrasions. Acute unresponsiveness, under investigation Acute respiratory failure, hypoxic/hypercapnic in nature, currently intubated on mechanical ventilator. Acute lactic acidosis, improved and the lactic acid level is normalized Chronic A-fib RIght thigh hematoma Skin abrasions related to fall, left hand, elbow and forehead History of valvular heart disease/aortic valve disease with a previous TAVR History of prostate cancer with previous prostatectomy Hypothyroidism Questionable dementia maintained on Aricept Plan Continue normal saline at rate of 75 cc an hour Continue vent support and wean down FiO2 as tolerated to maintain saturation above 90% Monitor the cardiac rhythm. No need for pressors at this point Obtain echocardiogram in the morning Hold beta-blockers for now Hold anticoagulation with Eliquis Triple antibiotic coverage appointment for skin abrasions Restart Synthroid Cardiology consultation Keep the heart neck collar for now keep the patient on sedation with propofol I will proceed with a sedation holiday in the morning. Compression devices lower extremity for DVT prophylaxis. Avoid anticoagulants for now Obtain a CAT scan of the right lower extremity regarding an evolving hematoma and monitor the hemoglobin. Will monitor the hemoglobin and the hematoma closely. Will offer Kcentra if there is significant drop in the hemoglobin or enlargement of the right thigh hematoma. Consult cardiology Consults trauma surgery Will continue to follow Time with Patient: Greater than 30
[2024-10-26] MEDS: HYDROmorphone 0.5 MG/0.5 ML SYRINGE IVP PRN (23:45)
[2024-10-26] MEDS: SODIUM CHLORIDE 0.9% 1,000 ML IV SCH (23:45)
[2024-10-27 00:01] LABS: HCT 42.6 % (39.6-50.0); HGB 14.0 g/dL (13.0-17.0); Immature Platelet Fraction 3.3 % (1.1-6.1); MCH 31.2 pg (27.0-32.0); MCHC 32.9 g/dL (32.0-37.0); MCV 94.9 fL (80.0-97.0); Platelet Count 131 10*3/uL (140-440); RBC 4.49 10*6/uL (4.40-5.60); RDW 15.4 % (11.5-14.5); WBC 9.64 10*3/uL (4.50-10.00)
[2024-10-27] MEDS ORDERED: Kcentra / Balfaxar PER PHARMACY 1 EACH MISC MISCELLANE PRN (00:59)
[2024-10-27] MEDS: EMPTY BAG 1 BAG with HUMAN PROTHROMBN CMPL-BALFAXAR 2,000 UNIT IV ONE (02:10)
--- NOTE | 2024-10-27 02:15 | CT ---
EXAM: CT Right Lower Extremity Without Intravenous Contrast, Knee CLINICAL HISTORY: ITS.REASON CT Reason: right knee hematoma; hx of fall TECHNIQUE: Axial computed tomography images of the right knee without intravenous contrast. CTDI is 3.9 mGy and DLP is 129.1 mGy-cm. This CT exam was performed using one or more of the following dose reduction techniques: automated exposure control, adjustment of the mA and/or kV according to patient size, and/or use of iterative reconstruction technique. COMPARISON: No relevant prior studies available. FINDINGS: Bones/joints: Mild knee joint fluid, without significant effusion. No acute fracture or dislocation. Soft tissues: Large hematoma along the medial aspect of the lower thigh, which measures a proximally 10.3 x 4.4 cm and extends proximal to the field of view. IMPRESSION: 1. No acute fracture or dislocation. 2. Large hematoma along the medial aspect of the lower thigh, which measures a proximally 10.3 x 4.4 cm and extends proximal to the field of view.
[2024-10-27 04:57] LABS: Basophils # (A) 0.03 10*3/uL (0.00-0.10); Basophils % (A) 0.4 %; Eosinophils # (A) 0.25 10*3/uL (0.04-0.35); Eosinophils % (A) 3.1 %; HCT 42.7 % (39.6-50.0); HGB 13.6 g/dL (13.0-17.0); Immature Platelet Fraction 3.1 % (1.1-6.1); Lymphocytes # (A) 1.21 10*3/uL (0.90-5.00); Lymphocytes % (A) 15.1 %; MCH 30.5 pg (27.0-32.0); MCHC 31.9 g/dL (32.0-37.0); MCV 95.7 fL (80.0-97.0); Monocytes # (A) 0.81 10*3/uL (0.20-1.00); Monocytes % (A) 10.1 %; Neutrophils # (A) 5.65 10*3/uL (1.80-7.70); Neutrophils % (A) 70.8 %; Platelet Count 101 10*3/uL (140-440); RBC 4.46 10*6/uL (4.40-5.60); RDW 15.3 % (11.5-14.5); WBC 7.99 10*3/uL (4.50-10.00)
[2024-10-27 05:13] LABS: African American GFR (CKD) >90 (>60 ml/min/1.73 sqM); Anion Gap 7 mmol/L; Blood Urea Nitrogen 26 mg/dL (9-20); Calcium 8.8 mg/dL (8.4-10.2); Carbon Dioxide 24 mmol/L (22-30); Chloride 110 mmol/L (98-107); Glucose 109 mg/dL (74-99); Magnesium 2.1 mg/dL (1.6-2.3); Non-African American GFR(CKD) 78 (>60 ml/min/1.73 sqM); Potassium 3.5 mmol/L (3.5-5.1); Sodium 141 mmol/L (137-145)
[2024-10-27 05:23] LABS: Glucose,Whole Blood 111 mg/dL (70-110)
[2024-10-27 05:26] LABS: ABG HCO3 26 mmol/L (21-25); ABG PCO2 34 mmHg (35-45); ABG PH 7.48 (7.35-7.45); ABG PO2 87 mmHg (83-108); ABG TCO2 27 mmol/L (19-24); Allen Test Performed? Yes
[2024-10-27] MEDS: POTASSIUM BICARBONATE/CIT AC 20 MEQ TABLET.EFF NG-TUBE SCH (05:39)
[2024-10-27] MEDS: NOREPINEPHRINE 8 MG in SODIUM CHLORIDE 0.9% 250 ML IV SCH (05:51)
[2024-10-27] MEDS: LEVOTHYROXINE 137 MCG TAB PO SCH (06:08)
--- NOTE | 2024-10-27 07:35 | XR ---
EXAMINATION TYPE: XR chest 1V portable DATE OF EXAM: 10/27/2024 4:41 AM COMPARISON: None. CLINICAL INDICATION: Male, 84 years old with history of Tube placement, TECHNIQUE: XR chest 1V portable view(s) obtained. FINDINGS: The heart size is enlarged. The pulmonary vasculature is normal. Mild diffuse pulmonary edema. Prior cardiac valve intervention evident Endotracheal tube tip is 5.3 cm above the shaina. Nasogastric tube transverses the thorax. IMPRESSION: 1. Diffuse pulmonary edema. 2. Lines and catheters discussed above [facility], , 10/27/2024 7:33 AM
--- NOTE | 2024-10-27 08:08 | P.GSHP ---
History of Present Illness H&P Date: 10/26/24 TRAUMA ACTIVATION: Level I status post fall unwitnessed HISTORY OF PRESENT ILLNESS: The patient is a 84-year-old male who was found down for unknown length of time earlier today. Patient was found facedown on the ground. Per family's report, patient is usually very sharp. He has pre- existing history of heart disease with valvular replacement. His daughter at bedside reports/some speaking to her father was 3 days ago. Patient had been on a trip where he had profound dehydration. At the time of assessment, patient has been intubated. Patient's mental status was depressed at the side of his fall hence his intubation. History is obtained by his family at bedside as well as EMS reports. PAST MEDICAL HISTORY: Reviewed per patient record PAST SURGICAL HISTORY: Reviewed per patient record MEDICATIONS: Reviewed per patient record ALLERGIES: Reviewed per patient record SOCIAL HISTORY: Reviewed per patient record FAMILY HISTORY: Reviewed by family at bedside with family history noncontributory REVIEW OF SYSTEMS: (Reviewed per medical record and family at bedside) CONSTITUTIONAL: No current fevers or chills. EYES: No reports of wearing glasses. HEENT: No reports of being hard of hearing. RESPIRATORY: No recent report pneumonia. History of sleep apnea. CARDIOVASCULAR: Atrial fibrillation including valvular replacement and on blood thinners. Prior heart catheterization. Hypertensive heart disease. GASTROINTESTINAL: No reports of recent GI bleed GENITOURINARY: History of prostate surgery NEUROLOGICAL: No history of prior strokes. MUSCULOSKELETAL: History of back pain, stiffness or joint arthritis. SKIN: No current skin cancer. No rash. PSYCHIATRIC: History of mild dementia, on Aricept ENDOCRINE: Has diabetes type 2. Has hypothyroidism. HEME/LYMPHATIC: No history of DVTs, pulmonary embolism or lymphoma ALLERGY/IMMUNOLOGY: No history of immune deficiencies. PHYSICAL EXAM: VITAL SIGNS: Stable GENERAL: Well-developed male in intubated, no acute distress HEENT: No sclerae icterus. Moist buccal mucosa. Left forehead hematoma with mild bleeding. Intubated. NECK: C-collar intact with cervical spine intact, midline CHEST: No crepitus or subcutaneous emphysema. Bilateral nonlabored respirations CARDIOVASCULAR: 2+ radial palpable ABDOMEN: Soft, nondistended. No rigidity. No peritonitis. MUSCULOSKELETAL: No gross deformities. Well-perfused distally. Moves lower extremities including wiggles toes equally. NEURO: Depressed. No lateralizing signs of the distal extremities SKIN: Perfused. Good skin turgor. LABS: Lactic acid elevated 7.2, white blood cell count normal. Hemoglobin 16.0. Creatinine elevated 1.26. STUDIES: Pelvis x-ray within normal limits. Chest x-ray without pneumothorax. Presence of cardiomegaly. CT head spine with no intracranial abnormalities and presence of degenerative joint disease of the cervical spine. Including 1 cm thickness left frontal hematoma. EKG: Abnormal with inferior myocardial infarction, atrial fibrillation, abnormal ASSESSMENT: 1. Level I trauma activation, patient found down unresponsive 2. Left frontal hematoma with concussive 3. Atrial fibrillation 4. History of valvular hematoma 5. Acute lactic acidosis PLAN: 1. Patient presents for unknown cause of trauma without any life-threatening injuries identified. Admission to trauma advised. 2. Consultation to neurology for unknown neurological status, pulmonary for critical care management, medicine for medical management, including cardiology for pre-existing severe heart disease 3. Patient is intubated and ICU management advised. 4. Patient presents with high level of acuity with inpatient admission advised EVENTS: Patient presented as a level 1 trauma. At the time of presentation, patient was evaluated by emergency room team as I was still in the operating room for an acute emergency trauma laparotomy for recent trauma activation. Diagnostic studies were obtained demonstrating no acute intracranial injuries. Discussion with ER attending revealed no acute general surgery intervention. Possible cause of fall likely medical with trauma secondary. Per further discussion, agreement for admission with multiple consultants advised. Patient was seen within 3 hours of presentation and seen alongside manager event. Past Medical History Past Medical History: Atrial Fibrillation, Hypertension, Sleep Apnea/CPAP/BIPAP History of Any Multi-Drug Resistant Organisms: None Reported Past Surgical History: Cardiac Valve Replacement, Heart Catheterization, Prostate Surgery Additional Past Surgical History / Comment(s): TAVR in 2021 Past Anesthesia/Blood Transfusion Reactions: No Reported Reaction Past Psychological History: Anxiety Smoking Status: Former smoker Past Alcohol Use History: None Reported Additional Past Alcohol Use History / Comment(s): QUIT SO YEARS AGO. 2 PACKS A DAY X 10 YEARS Past Drug Use History: None Reported - Past Family History Mother Family Medical History: Hypertension Medications and Allergies Home Medications Medication Instructions Recorded Confirmed Type Apixaban [Eliquis] 5 mg PO BID 02/16/24 10/26/24 History Metoprolol Tartrate 25 mg PO BID 02/16/24 10/26/24 History Vibegron [Gemtesa] 75 mg PO DAILY 02/16/24 10/26/24 History Donepezil [Aricept] 10 mg PO HS 10/26/24 10/26/24 History Levothyroxine Sodium [Synthroid] 137 mcg PO DAILY 10/26/24 10/26/24 History Allergies Allergy/AdvReac Type Severity Reaction Status Date / Time Iodinated Contrast Media AdvReac Chest Pain Verified 10/26/24 17:03 tetanus immune globulin AdvReac Chest Pain Verified 10/26/24 17:03 Surgical - Exam Vital Signs Temp Pulse Resp BP Pulse Ox 96.9 F L 72 16 163/100 98 10/26/24 16:49 10/26/24 16:49 10/26/24 16:49 10/26/24 16:49 10/26/24 16:49 Results - Labs 10/27/24 04:35 10/27/24 04:35 Abnormal Lab Results - Last 24 Hours (Table) 10/26/24 10/26/24 10/26/24 Range/Units 16:32 16:32 16:32 Hct 50.4 H (39.6-50.0) % MCV 98.4 H (80.0-97.0) fL MCHC 31.7 L (32.0-37.0) g/dL Immature Gran # 0.06 H (0.00-0.04) 10*3/uL Monocytes # 1.15 H (0.20-1.00) 10*3/uL Eosinophils # 0.54 H (0.04-0.35) 10*3/uL ABG pH (7.35-7.45) ABG pO2 (83-108) mmHg ABG O2 Saturation (94-97) % Chloride 110 H (98-107) mmol/L Carbon Dioxide 20 L (22-30) mmol/L BUN 28 H (9-20) mg/dL Creatinine 1.26 H (0.66-1.25) mg/dL Glucose 105 H (74-99) mg/dL Plasma Lactic Acid David 7.2 H* (0.7-2.0) mmol/L Ammonia 40 H (<30) umol/L Creatine Kinase 33 L (55-170) U/L Urine Protein (Negative) Urine Blood (Negative) Urine RBC (0-5) /hpf Ur Squamous Epith Cells (0-4) /hpf Urine Bacteria (None) /hpf Urine Mucus (None) /hpf 10/26/24 10/26/24 Range/Units 17:33 17:40 Hct (39.6-50.0) % MCV (80.0-97.0) fL MCHC (32.0-37.0) g/dL Immature Gran # (0.00-0.04) 10*3/uL Monocytes # (0.20-1.00) 10*3/uL Eosinophils # (0.04-0.35) 10*3/uL ABG pH 7.32 L (7.35-7.45) ABG pO2 236 H (83-108) mmHg ABG O2 Saturation 99.8 H (94-97) % Chloride (98-107) mmol/L Carbon Dioxide (22-30) mmol/L BUN (9-20) mg/dL Creatinine (0.66-1.25) mg/dL Glucose (74-99) mg/dL Plasma Lactic Acid David (0.7-2.0) mmol/L Ammonia (<30) umol/L Creatine Kinase (55-170) U/L Urine Protein 1+ H (Negative) Urine Blood Small H (Negative) Urine RBC 12 H (0-5) /hpf Ur Squamous Epith Cells 5 H (0-4) /hpf Urine Bacteria Rare H (None) /hpf Urine Mucus Few H (None) /hpf Diabetes panel 10/26/24 Range/Units 16:32 Sodium 145 (137-145) mmol/L Potassium 4.5 (3.5-5.1) mmol/L Chloride 110 H (98-107) mmol/L Carbon Dioxide 20 L (22-30) mmol/L BUN 28 H (9-20) mg/dL Creatinine 1.26 H (0.66-1.25) mg/dL Glucose 105 H (74-99) mg/dL Calcium 9.5 (8.4-10.2) mg/dL AST 35 (17-59) U/L ALT 19 (4-49) U/L Alkaline Phosphatase 88 (38-126) U/L Total Protein 7.6 (6.3-8.2) g/dL Albumin 4.5 (3.5-5.0) g/dL Calcium panel 10/26/24 Range/Units 16:32 Calcium 9.5 (8.4-10.2) mg/dL Albumin 4.5 (3.5-5.0) g/dL Pituitary panel 10/26/24 Range/Units 16:32 Sodium 145 (137-145) mmol/L Potassium 4.5 (3.5-5.1) mmol/L Chloride 110 H (98-107) mmol/L Carbon Dioxide 20 L (22-30) mmol/L BUN 28 H (9-20) mg/dL Creatinine 1.26 H (0.66-1.25) mg/dL Glucose 105 H (74-99) mg/dL Calcium 9.5 (8.4-10.2) mg/dL Adrenal panel 10/26/24 Range/Units 16:32 Sodium 145 (137-145) mmol/L Potassium 4.5 (3.5-5.1) mmol/L Chloride 110 H (98-107) mmol/L Carbon Dioxide 20 L (22-30) mmol/L BUN 28 H (9-20) mg/dL Creatinine 1.26 H (0.66-1.25) mg/dL Glucose 105 H (74-99) mg/dL Calcium 9.5 (8.4-10.2) mg/dL Total Bilirubin 1.2 (0.2-1.3) mg/dL AST 35 (17-59) U/L ALT 19 (4-49) U/L Alkaline Phosphatase 88 (38-126) U/L Total Protein 7.6 (6.3-8.2) g/dL Albumin 4.5 (3.5-5.0) g/dL
[2024-10-27] MEDS: DOPamine DRIP 800 MG in DEXTROSE/WATER 1 250ML.BAG IV SCH (09:43)
[2024-10-27] MEDS: PANTOPRAZOLE 40 MG/10 ML VIAL IVP SCH (10:12)
[2024-10-27 11:15] LABS: Glucose,Whole Blood 103 mg/dL (70-110)
--- NOTE | 2024-10-27 13:20 | P.CRDCN ---
History of Present Illness Consult date: 10/27/24 Reason for Consult (text): Bradycardia History of present illness: The patient is an 84-year-old male who presented to the hospital after mechan ical fall. Patient was found down at home with scalp laceration. Patient has been intubated for airway protection. He is currently sedated on the ventilator in the ICU, on low-dose vasopressors. Cardiology has been consulted for bradycardia. Initial EKG showed heart rates in the 50s, however on telemetry heart rates are in the 40s and 50s. DIAGNOSTICS: EKG shows atrial fibrillation Chest x-ray shows pulmonary edema Lab data: WBC 7.9, hemoglobin 13.6, hematocrit 42.7, platelet 1 1, BUN 26, creatinine 0.86, AST 35, ALT 19, TSH 0.27, troponin negative REVIEW OF SYSTEMS: Sedated on ventilator PHYSICAL EXAMINATION: This is a 84-year-old male in no apparent distress at the time of my examination. HEENT: Head is atraumatic, normocephalic. Pupils are equal, round. Sclerae anicteric. There is no jugular venous distention. No carotid bruit is heard. Facial trauma and bruising noted CHEST EXAMINATION: Lungs are diminished to auscultation. No chest wall tenderness is noted on palpation or with deep breathing. HEART EXAMINATION: Irregular rate and rhythm. S1, S2 heard. No murmurs, gallops or rub. ABDOMEN: Soft, nontender. Bowel sounds are heard. No organomegaly noted. EXTREMITIES: 2+ peripheral pulses with no evidence of peripheral edema. NEUROLOGIC EXAMINATION: Sedated on ventilator FINAL ASSESSMENT AND PLAN: Mechanical fall Persistent atrial fibrillation, on anticoagulation Sick sinus syndrome Pulmonary edema PLAN: Recommend echocardiogram and Doppler study Avoid all AV mars blocking agents. Patient was on metoprolol at home. Continue to hold anticoagulation as recommended by primary team Consideration for permanent pacing if heart rates do not improve off of beta- edwar Further recommendations based on clinical course I am dictating on behalf of Dr Yanick Wyatt's history/physical and assessment/plan. Past Medical History Past Medical History: Atrial Fibrillation, Hypertension, Sleep Apnea/CPAP/BIPAP Additional Past Medical History / Comment(s): Previous TAVR for Aortic valve disease History of Any Multi-Drug Resistant Organisms: None Reported Past Surgical History: Cardiac Valve Replacement, Heart Catheterization, Prostate Surgery Additional Past Surgical History / Comment(s): TAVR in 2021 Past Anesthesia/Blood Transfusion Reactions: No Reported Reaction Past Psychological History: Anxiety Smoking Status: Former smoker Past Alcohol Use History: None Reported Additional Past Alcohol Use History / Comment(s): QUIT SO YEARS AGO. 2 PACKS A DAY X 10 YEARS Past Drug Use History: None Reported - Past Family History Mother Family Medical History: Hypertension Medications and Allergies Home Medications Medication Instructions Recorded Confirmed Type Apixaban [Eliquis] 5 mg PO BID 02/16/24 10/26/24 History Metoprolol Tartrate 25 mg PO BID 02/16/24 10/26/24 History Vibegron [Gemtesa] 75 mg PO DAILY 02/16/24 10/26/24 History Donepezil [Aricept] 10 mg PO HS 10/26/24 10/26/24 History Levothyroxine Sodium [Synthroid] 137 mcg PO DAILY 10/26/24 10/26/24 History Allergies Allergy/AdvReac Type Severity Reaction Status Date / Time Iodinated Contrast Media AdvReac Chest Pain Verified 10/26/24 17:03 tetanus immune globulin AdvReac Chest Pain Verified 10/26/24 17:03 Physical Exam Vitals: Vital Signs Temp Pulse Pulse Resp BP BP Pulse Ox 10/27/24 13:00 71 14 113/57 98 10/27/24 12:45 64 15 146/83 98 10/27/24 12:30 79 15 145/80 98 10/27/24 12:17 10/27/24 12:15 77 13 133/56 98 10/27/24 12:00 97.8 F 65 13 103/55 97 10/27/24 11:45 65 14 96/60 97 10/27/24 11:30 70 15 131/66 97 10/27/24 11:15 70 27 H 132/60 98 10/27/24 11:00 77 17 128/117 98 10/27/24 10:45 70 15 156/76 100 10/27/24 10:30 68 16 166/89 99 10/27/24 10:15 61 16 121/64 99 10/27/24 10:00 54 L 16 80/61 100 10/27/24 09:45 53 L 16 92/53 99 10/27/24 09:30 42 L 15 82/52 100 10/27/24 09:15 47 L 14 89/52 100 10/27/24 09:00 53 L 12 86/66 100 10/27/24 08:45 43 L 12 92/57 99 10/27/24 08:30 56 L 20 122/69 100 10/27/24 08:15 50 L 20 155/84 100 10/27/24 08:00 97.4 F L 59 L 20 140/87 100 10/27/24 07:45 53 L 20 145/72 100 10/27/24 07:30 48 L 20 113/68 100 10/27/24 07:15 48 L 20 104/53 100 10/27/24 07:00 53 L 20 107/64 100 10/27/24 06:45 52 L 20 95/76 100 10/27/24 06:30 43 L 20 89/53 100 10/27/24 06:15 61 20 111/59 100 10/27/24 06:00 47 L 20 81/57 100 10/27/24 05:45 46 L 20 73/53 99 10/27/24 05:30 53 L 20 83/53 98 10/27/24 05:15 51 L 20 87/51 98 10/27/24 05:00 52 L 20 92/52 99 10/27/24 04:45 56 L 20 100/50 98 10/27/24 04:03 10/27/24 04:00 98.0 F 45 L 20 100/50 98 10/27/24 03:00 60 20 103/71 98 10/27/24 02:00 61 20 111/72 98 10/27/24 01:00 50 L 20 93/58 97 10/27/24 00:40 10/27/24 00:00 10/26/24 23:00 62 20 138/86 99 10/26/24 22:04 56 L 22 146/84 99 10/26/24 22:00 56 L 19 145/83 99 10/26/24 21:15 10/26/24 21:00 54 L 20 139/79 98 10/26/24 20:00 97.9 F 58 L 20 134/97 97 10/26/24 19:58 10/26/24 19:28 97.9 F 61 20 124/63 99 10/26/24 19:22 56 L 18 129/78 99 10/26/24 19:05 56 L 16 139/82 99 10/26/24 19:00 56 L 16 152/79 99 10/26/24 18:55 59 L 16 152/79 99 10/26/24 18:53 58 L 16 152/79 99 10/26/24 18:50 10/26/24 17:10 10/26/24 16:49 96.9 F L 72 16 163/100 98 FiO2 10/27/24 13:00 60 10/27/24 12:45 60 10/27/24 12:30 60 10/27/24 12:17 60 10/27/24 12:15 60 10/27/24 12:00 60 10/27/24 11:45 60 10/27/24 11:30 60 10/27/24 11:15 60 10/27/24 11:00 60 10/27/24 10:45 60 10/27/24 10:30 60 10/27/24 10:15 60 10/27/24 10:00 60 10/27/24 09:45 60 10/27/24 09:30 60 10/27/24 09:15 60 10/27/24 09:00 60 10/27/24 08:45 60 10/27/24 08:30 60 10/27/24 08:15 60 10/27/24 08:00 60 10/27/24 07:45 60 10/27/24 07:30 60 10/27/24 07:15 60 10/27/24 07:00 10/27/24 06:45 10/27/24 06:30 10/27/24 06:15 10/27/24 06:00 10/27/24 05:45 10/27/24 05:30 10/27/24 05:15 10/27/24 05:00 10/27/24 04:45 10/27/24 04:03 60 10/27/24 04:00 60 10/27/24 03:00 10/27/24 02:00 10/27/24 01:00 10/27/24 00:40 60 10/27/24 00:00 60 10/26/24 23:00 10/26/24 22:04 10/26/24 22:00 10/26/24 21:15 60 10/26/24 21:00 10/26/24 20:00 60 10/26/24 19:58 60 10/26/24 19:28 60 10/26/24 19:22 10/26/24 19:05 10/26/24 19:00 10/26/24 18:55 10/26/24 18:53 10/26/24 18:50 50 10/26/24 17:10 100 10/26/24 16:49 Intake and Output 10/26/24 10/27/24 10/27/24 22:59 06:59 14:59 Intake Total 100.000 798.488 674.194 Output Total 94 270 1090 Balance 6.000 528.488 -415.806 Intake: IV 610 595 0.9% @ KVO 10 70 Sodium Chloride 0.9% 1, 600 525 000 ml @ 75 mls/hr IV . [id number] [facility] Rx#:[id number] Intake, IV Titration 100.000 188.488 69.194 Amount DOPamine DRIP 800 mg In 0.71 Dextrose/Water 1 250ml. bag @ 1 MCG/KG/MIN 1.776 mls/hr IV .Q24H [facility] Rx#: [id number] Norepinephrine 8 mg In 17.699 Sodium Chloride 0.9% 250 ml @ 0.03 MCG/KG/MIN 5. 214 mls/hr IV .Q24H [facility] Rx#:[id number] propofoL 1,000 mg In 100.000 188.488 50.785 Empty Bag 1 bag @ 15 MCG/ KG/MIN 7.552 mls/hr IV . [id number] LYEDI Rx#:[id number] Tube Feeding 10 Output: Urine 94 270 1090 Other: Voiding Method Indwelling Catheter Indwelling Catheter Indwelling Catheter Weight 89.811 kg 94.7 kg Results 10/27/24 04:35 10/27/24 04:35 Cardiac Enzymes 10/26/24 10/26/24 Range/Units 16:32 16:32 AST 35 (17-59) U/L Troponin I <0.012 (0.000-0.034) ng/mL Coagulation 10/26/24 Range/Units 16:32 PT 11.7 (10.0-12.5) sec APTT 22.6 (22.0-30.0) sec CBC 10/26/24 10/26/24 10/27/24 Range/Units 16:32 23:06 04:35 WBC 9.66 9.64 7.99 (4.50-10.00) 10*3/uL RBC 5.12 4.49 4.46 (4.40-5.60) 10*6/uL Hgb 16.0 14.0 13.6 (13.0-17.0) g/dL Hct 50.4 H 42.6 42.7 (39.6-50.0) % Plt Count 156 131 L 101 L (140-440) 10*3/uL Comprehensive Metabolic Panel 10/26/24 10/27/24 Range/Units 16:32 04:35 Sodium 145 141 (137-145) mmol/L Potassium 4.5 3.5 (3.5-5.1) mmol/L Chloride 110 H 110 H (98-107) mmol/L Carbon Dioxide 20 L 24 (22-30) mmol/L BUN 28 H 26 H (9-20) mg/dL Creatinine 1.26 H 0.89 (0.66-1.25) mg/dL Glucose 105 H 109 H (74-99) mg/dL Calcium 9.5 8.8 (8.4-10.2) mg/dL AST 35 (17-59) U/L ALT 19 (4-49) U/L Alkaline Phosphatase 88 (38-126) U/L Total Protein 7.6 (6.3-8.2) g/dL Albumin 4.5 (3.5-5.0) g/dL Current Medications Generic Name Dose Route Start Last Admin Trade Name Freq PRN Reason Stop Dose Admin Albuterol/Ipratropium 3 ml 10/26/24 18:55 Ipratropium-Albuterol 3 Ml Neb INHALATION RT-Q4H PRN Shortness Of Breath Or Wheezing Chlorhexidine Gluconate 15 ml 10/26/24 21:15 10/27/24 08:08 Chlorhexidine Gluconate 15 Ml Cup MUCOUS MEM 15 ml BID [facility]DI Administration Hydromorphone HCl 0.5 mg 10/26/24 23:40 10/26/24 23:45 Hydromorphone 0.5 Mg/0.5 Ml Syringe IVP 0.5 mg Q6HR PRN Administration Pain Propofol 1,000 mg/ IV Solution 100 mls @ 7.552 mls/hr 10/26/24 16:45 10/27/24 11:24 IV 30 mcg/kg/min .[id number] [facility]DI 15.105 mls/hr Titration Protocol 15 MCG/KG/MIN Sodium Chloride 1,000 mls @ 75 mls/hr 10/26/24 23:30 10/26/24 23:45 Saline 0.9% IV 75 mls/hr .[id number] [facility]DI Administration Norepinephrine Bitartrate 8 mg 258 mls @ 5.214 mls/hr 10/27/24 05:45 10/27/24 10:43 / Sodium Chloride IV 0 mcg/kg/min .Q24H [facility]DI 0 mls/hr Titration Protocol 0.03 MCG/KG/MIN Dopamine HCl/Dextrose 800 mg/ 250 mls @ 1.776 mls/hr 10/27/24 09:00 10/27/24 10:07 IV Solution IV 2.5 mcg/kg/min .Q24H [facility]DI 4.439 mls/hr Titration Protocol 1 MCG/KG/MIN Levothyroxine Sodium 137 mcg 10/27/24 06:00 10/27/24 06:08 Levothyroxine 137 Mcg Tab PO 137 mcg DAILY@0600 [facility] Administration Miscellaneous Information 1 each 10/26/24 21:12 Potassium Replacement Protocol 1 Each Misc MISCELLANE DAILY PRN Per Protocol Miscellaneous Information 1 each 10/26/24 21:12 Magnesium Replacement Protocol 1 Each Misc MISCELLANE DAILY PRN Per Protocol Protocol Naloxone HCl 0.2 mg 10/26/24 18:50 Naloxone 0.4 Mg/Ml 1 Ml Vial IV Q2M PRN Opioid Reversal Pantoprazole Sodium 40 mg 10/27/24 09:00 10/27/24 10:12 Pantoprazole 40 Mg/10 Ml Vial IVP 40 mg DAILY [facility] Administration Intake and Output 10/26/24 10/27/24 10/27/24 22:59 06:59 14:59 Intake Total 100.000 798.488 674.194 Output Total 94 270 1090 Balance 6.000 528.488 -415.806 Intake: IV 610 595 0.9% @ KVO 10 70 Sodium Chloride 0.9% 1, 600 525 000 ml @ 75 mls/hr IV . [id number] [facility] Rx#:[id number] Intake, IV Titration 100.000 188.488 69.194 Amount DOPamine DRIP 800 mg In 0.71 Dextrose/Water 1 250ml. bag @ 1 MCG/KG/MIN 1.776 mls/hr IV .Q24H [facility] Rx#: [id number] Norepinephrine 8 mg In 17.699 Sodium Chloride 0.9% 250 ml @ 0.03 MCG/KG/MIN 5. 214 mls/hr IV .Q24H [facility] Rx#:[id number] propofoL 1,000 mg In 100.000 188.488 50.785 Empty Bag 1 bag @ 15 MCG/ KG/MIN 7.552 mls/hr IV . [id number] [facility] Rx#:[id number] Tube Feeding 10 Output: Urine 94 270 1090 Other: Voiding Method Indwelling Catheter Indwelling Catheter Indwelling Catheter Weight 89.811 kg 94.7 kg 10/27/24 04:35 10/27/24 04:35
--- NOTE | 2024-10-27 14:57 | P.HPIM ---
History of Present Illness H&P Date: 10/27/24 Chief Complaint[facility] This is not 84-year old male with past medical history significant for TAVR at [facility], aortic valve disease, chronic atrial fibrillation, hypertension, prostate cancer with prostatectomy, hypothyroidism and multiple other medical issues, [place] of blood and vomit, downtime unknown. Sustained head injury with abrasion and hematoma of the left forehead. EMS responded, GCS of 9, placed in a c-collar, received bagged ventilation.EKG reported atrial fibrillation. Patient is currently in ICU, mechanically ventilated with FiO2 60%/+5 of PEEP, sedated on diprovan and on Levophed for pressure control ,IV fluids and cefazolin. Telemetry reporting bradycardic with heart rates as low as in the 40s. Patient's home medication including metoprolol which is on hold. Anticoagulation currently on hold. On admission lactic acid 7.2, normal WBC, hemoglobin 16, creatinine 1.26 .received IV fluid resuscitation.afebrile, normal WBC, hemoglobin 13.6, platelets 101 Sodium 141 potassium 3.5 bicarb increased from 20 to 24 BUN 26 with a creatinine 89 and a lactic acid responded to IV fluids ,decreased to 1.1. Calcium, LFT s, troponin within normal limits. ProBNP 2790. UA reported +1 protein, small blood, negative nitrates and leukocytes 2 WBCs. Toxicology screen negative ,alcohol level less than 10. CT brain C-spine reporting no acute intracranial process , no fractures, acute left forehead soft tissue hematoma measuring up to 1 cm thickness, no evidence of cervical spine fracture , moderate multilevel degenerative disc disease, biapical intralobular septal thickening. Pelvis x-ray reported no evidence of fracture or dislocation, no acute osseous pathology. Review of Systems Review of systems unable to obtain as patient sedated and on mechanical ventilator Past Medical History Past Medical History: Atrial Fibrillation, Hypertension, Sleep Apnea/CPAP/BIPAP Additional Past Medical History / Comment(s): Previous TAVR for Aortic valve disease History of Any Multi-Drug Resistant Organisms: None Reported Past Surgical History: Cardiac Valve Replacement, Heart Catheterization, Prostate Surgery Additional Past Surgical History / Comment(s): TAVR in 2021 Past Anesthesia/Blood Transfusion Reactions: No Reported Reaction Past Psychological History: Anxiety Smoking Status: Former smoker Past Alcohol Use History: None Reported Additional Past Alcohol Use History / Comment(s): QUIT SO YEARS AGO. 2 PACKS A DAY X 10 YEARS Past Drug Use History: None Reported - Past Family History Mother Family Medical History: Hypertension Medications and Allergies Home Medications Medication Instructions Recorded Confirmed Type Apixaban [Eliquis] 5 mg PO BID 02/16/24 10/26/24 History Metoprolol Tartrate 25 mg PO BID 02/16/24 10/26/24 History Vibegron [Gemtesa] 75 mg PO DAILY 02/16/24 10/26/24 History Donepezil [Aricept] 10 mg PO HS 10/26/24 10/26/24 History Levothyroxine Sodium [Synthroid] 137 mcg PO DAILY 10/26/24 10/26/24 History Allergies Allergy/AdvReac Type Severity Reaction Status Date / Time Iodinated Contrast Media AdvReac Chest Pain Verified 10/26/24 17:03 tetanus immune globulin AdvReac Chest Pain Verified 10/26/24 17:03 Physical Exam Vitals: Vital Signs Temp Pulse Pulse Resp BP BP Pulse Ox 10/27/24 13:00 71 14 113/57 98 10/27/24 12:45 64 15 146/83 98 10/27/24 12:30 79 15 145/80 98 10/27/24 12:17 10/27/24 12:15 77 13 133/56 98 10/27/24 12:00 97.8 F 65 13 103/55 97 10/27/24 11:45 65 14 96/60 97 10/27/24 11:30 70 15 131/66 97 10/27/24 11:15 70 27 H 132/60 98 10/27/24 11:00 77 17 128/117 98 10/27/24 10:45 70 15 156/76 100 10/27/24 10:30 68 16 166/89 99 10/27/24 10:15 61 16 121/64 99 10/27/24 10:00 54 L 16 80/61 100 10/27/24 09:45 53 L 16 92/53 99 10/27/24 09:30 42 L 15 82/52 100 10/27/24 09:15 47 L 14 89/52 100 10/27/24 09:00 53 L 12 86/66 100 10/27/24 08:45 43 L 12 92/57 99 10/27/24 08:30 56 L 20 122/69 100 10/27/24 08:15 50 L 20 155/84 100 10/27/24 08:00 97.4 F L 59 L 20 140/87 100 10/27/24 07:45 53 L 20 145/72 100 10/27/24 07:30 48 L 20 113/68 100 10/27/24 07:15 48 L 20 104/53 100 10/27/24 07:00 53 L 20 107/64 100 10/27/24 06:45 52 L 20 95/76 100 10/27/24 06:30 43 L 20 89/53 100 10/27/24 06:15 61 20 111/59 100 10/27/24 06:00 47 L 20 81/57 100 10/27/24 05:45 46 L 20 73/53 99 10/27/24 05:30 53 L 20 83/53 98 10/27/24 05:15 51 L 20 87/51 98 10/27/24 05:00 52 L 20 92/52 99 10/27/24 04:45 56 L 20 100/50 98 10/27/24 04:03 10/27/24 04:00 98.0 F 45 L 20 100/50 98 10/27/24 03:00 60 20 103/71 98 10/27/24 02:00 61 20 111/72 98 10/27/24 01:00 50 L 20 93/58 97 10/27/24 00:40 10/27/24 00:00 10/26/24 23:00 62 20 138/86 99 10/26/24 22:04 56 L 22 146/84 99 10/26/24 22:00 56 L 19 145/83 99 10/26/24 21:15 10/26/24 21:00 54 L 20 139/79 98 10/26/24 20:00 97.9 F 58 L 20 134/97 97 10/26/24 19:58 10/26/24 19:28 97.9 F 61 20 124/63 99 10/26/24 19:22 56 L 18 129/78 99 10/26/24 19:05 56 L 16 139/82 99 10/26/24 19:00 56 L 16 152/79 99 10/26/24 18:55 59 L 16 152/79 99 10/26/24 18:53 58 L 16 152/79 99 10/26/24 18:50 10/26/24 17:10 10/26/24 16:49 96.9 F L 72 16 163/100 98 FiO2 10/27/24 13:00 60 10/27/24 12:45 60 10/27/24 12:30 60 10/27/24 12:17 60 10/27/24 12:15 60 10/27/24 12:00 60 10/27/24 11:45 60 10/27/24 11:30 60 10/27/24 11:15 60 10/27/24 11:00 60 10/27/24 10:45 60 10/27/24 10:30 60 10/27/24 10:15 60 10/27/24 10:00 60 10/27/24 09:45 60 10/27/24 09:30 60 10/27/24 09:15 60 10/27/24 09:00 60 10/27/24 08:45 60 10/27/24 08:30 60 10/27/24 08:15 60 10/27/24 08:00 60 10/27/24 07:45 60 10/27/24 07:30 60 10/27/24 07:15 60 10/27/24 07:00 10/27/24 06:45 10/27/24 06:30 10/27/24 06:15 10/27/24 06:00 10/27/24 05:45 10/27/24 05:30 10/27/24 05:15 10/27/24 05:00 10/27/24 04:45 10/27/24 04:03 60 10/27/24 04:00 60 10/27/24 03:00 10/27/24 02:00 10/27/24 01:00 10/27/24 00:40 60 10/27/24 00:00 60 10/26/24 23:00 10/26/24 22:04 10/26/24 22:00 10/26/24 21:15 60 10/26/24 21:00 10/26/24 20:00 60 10/26/24 19:58 60 10/26/24 19:28 60 10/26/24 19:22 10/26/24 19:05 10/26/24 19:00 10/26/24 18:55 10/26/24 18:53 10/26/24 18:50 50 10/26/24 17:10 100 10/26/24 16:49 Intake and Output 10/26/24 10/27/24 10/27/24 22:59 06:59 14:59 Intake Total 100.000 798.488 674.194 Output Total 94 270 1090 Balance 6.000 528.488 -415.806 Intake: IV 610 595 0.9% @ KVO 10 70 Sodium Chloride 0.9% 1, 600 525 000 ml @ 75 mls/hr IV . [id number] [facility]YDI Rx#:[id number] Intake, IV Titration 100.000 188.488 69.194 Amount DOPamine DRIP 800 mg In 0.71 Dextrose/Water 1 250ml. bag @ 1 MCG/KG/MIN 1.776 mls/hr IV .Q24H LEYDI Rx#: [id number] Norepinephrine 8 mg In 17.699 Sodium Chloride 0.9% 250 ml @ 0.03 MCG/KG/MIN 5. 214 mls/hr IV .Q24H LEYDI Rx#:[id number] propofoL 1,000 mg In 100.000 188.488 50.785 Empty Bag 1 bag @ 15 MCG/ KG/MIN 7.552 mls/hr IV . [id number] LEYDI Rx#:[id number] Tube Feeding 10 Output: Urine 94 270 1090 Other: Voiding Method Indwelling Catheter Indwelling Catheter Indwelling Catheter Weight 89.811 kg 94.7 kg PHYSICAL EXAM: VITAL SIGNS: [Reviewed] GENERAL: 84-year-old male, intubated and sedated. Left forehead hematoma/abrasion. HEENT: Conjunctivae normal. eyes normal. No scleral icterus ,OG tube present. NECK: No JVD. CARDIOVASCULAR: S1, S2. irregular. Systolic murmur. RESPIRATION: Breath sounds CTA ABDOMEN: Soft, no masses palpable. No organomegaly .bowel sounds heard. EXTREMITIES: Skin abrasions ,right thigh hematoma,no edema,peripheral pulses intact PSYCHIATRY/ NERVOUS SYSTEM: Unable to evaluate as patient sedated and on mechanical ventilation Skin: Warm and dry, skin abrasions Results CBC & Chem 7: 10/29/24 06:00 10/29/24 06:00 Labs: Abnormal Lab Results - Last 24 Hours (Table) 10/26/24 10/26/24 10/26/24 Range/Units 16:32 16:32 16:32 Hct 50.4 H (39.6-50.0) % MCV 98.4 H (80.0-97.0) fL MCHC 31.7 L (32.0-37.0) g/dL Plt Count (140-440) 10*3/uL Immature Gran # 0.06 H (0.00-0.04) 10*3/uL Monocytes # 1.15 H (0.20-1.00) 10*3/uL Eosinophils # 0.54 H (0.04-0.35) 10*3/uL ABG pH (7.35-7.45) ABG pCO2 (35-45) mmHg ABG pO2 (83-108) mmHg ABG HCO3 (21-25) mmol/L ABG Total CO2 (19-24) mmol/L ABG O2 Saturation (94-97) % Chloride 110 H (98-107) mmol/L Carbon Dioxide 20 L (22-30) mmol/L BUN 28 H (9-20) mg/dL Creatinine 1.26 H (0.66-1.25) mg/dL Glucose 105 H (74-99) mg/dL POC Glucose (mg/dL) (70-110) mg/dL Plasma Lactic Acid David 7.2 H* (0.7-2.0) mmol/L Ammonia 40 H (<30) umol/L Creatine Kinase 33 L (55-170) U/L TSH (0.465-4.680) mIU/L Prolactin (2.100-17.000) ng/mL Urine Protein (Negative) Urine Blood (Negative) Urine RBC (0-5) /hpf Ur Squamous Epith Cells (0-4) /hpf Urine Bacteria (None) /hpf Urine Mucus (None) /hpf 10/26/24 10/26/24 10/26/24 Range/Units 16:32 16:43 17:33 Hct (39.6-50.0) % MCV (80.0-97.0) fL MCHC (32.0-37.0) g/dL Plt Count (140-440) 10*3/uL Immature Gran # (0.00-0.04) 10*3/uL Monocytes # (0.20-1.00) 10*3/uL Eosinophils # (0.04-0.35) 10*3/uL ABG pH 7.32 L (7.35-7.45) ABG pCO2 (35-45) mmHg ABG pO2 236 H (83-108) mmHg ABG HCO3 (21-25) mmol/L ABG Total CO2 (19-24) mmol/L ABG O2 Saturation 99.8 H (94-97) % Chloride (98-107) mmol/L Carbon Dioxide (22-30) mmol/L BUN (9-20) mg/dL Creatinine (0.66-1.25) mg/dL Glucose (74-99) mg/dL POC Glucose (mg/dL) (70-110) mg/dL Plasma Lactic Acid David (0.7-2.0) mmol/L Ammonia (<30) umol/L Creatine Kinase (55-170) U/L TSH 0.271 L (0.465-4.680) mIU/L Prolactin 90.400 H (2.100-17.000) ng/mL Urine Protein (Negative) Urine Blood (Negative) Urine RBC (0-5) /hpf Ur Squamous Epith Cells (0-4) /hpf Urine Bacteria (None) /hpf Urine Mucus (None) /hpf 10/26/24 10/26/24 10/27/24 Range/Units 17:40 23:06 04:35 Hct (39.6-50.0) % MCV (80.0-97.0) fL MCHC 31.9 L (32.0-37.0) g/dL Plt Count 131 L 101 L (140-440) 10*3/uL Immature Gran # (0.00-0.04) 10*3/uL Monocytes # (0.20-1.00) 10*3/uL Eosinophils # (0.04-0.35) 10*3/uL ABG pH (7.35-7.45) ABG pCO2 (35-45) mmHg ABG pO2 (83-108) mmHg ABG HCO3 (21-25) mmol/L ABG Total CO2 (19-24) mmol/L ABG O2 Saturation (94-97) % Chloride (98-107) mmol/L Carbon Dioxide (22-30) mmol/L BUN (9-20) mg/dL Creatinine (0.66-1.25) mg/dL Glucose (74-99) mg/dL POC Glucose (mg/dL) (70-110) mg/dL Plasma Lactic Acid David (0.7-2.0) mmol/L Ammonia (<30) umol/L Creatine Kinase (55-170) U/L TSH (0.465-4.680) mIU/L Prolactin (2.100-17.000) ng/mL Urine Protein 1+ H (Negative) Urine Blood Small H (Negative) Urine RBC 12 H (0-5) /hpf Ur Squamous Epith Cells 5 H (0-4) /hpf Urine Bacteria Rare H (None) /hpf Urine Mucus Few H (None) /hpf 10/27/24 10/27/24 10/27/24 Range/Units 04:35 05:21 05:25 Hct (39.6-50.0) % MCV (80.0-97.0) fL MCHC (32.0-37.0) g/dL Plt Count (140-440) 10*3/uL Immature Gran # (0.00-0.04) 10*3/uL Monocytes # (0.20-1.00) 10*3/uL Eosinophils # (0.04-0.35) 10*3/uL ABG pH 7.48 H (7.35-7.45) ABG pCO2 34 L (35-45) mmHg ABG pO2 (83-108) mmHg ABG HCO3 26 H (21-25) mmol/L ABG Total CO2 27 H (19-24) mmol/L ABG O2 Saturation 97.7 H (94-97) % Chloride 110 H (98-107) mmol/L Carbon Dioxide (22-30) mmol/L BUN 26 H (9-20) mg/dL Creatinine (0.66-1.25) mg/dL Glucose 109 H (74-99) mg/dL POC Glucose (mg/dL) 111 H (70-110) mg/dL Plasma Lactic Acid David (0.7-2.0) mmol/L Ammonia (<30) umol/L Creatine Kinase (55-170) U/L TSH (0.465-4.680) mIU/L Prolactin (2.100-17.000) ng/mL Urine Protein (Negative) Urine Blood (Negative) Urine RBC (0-5) /hpf Ur Squamous Epith Cells (0-4) /hpf Urine Bacteria (None) /hpf Urine Mucus (None) /hpf Thrombosis Risk Factor Assmnt - Choose All That Apply Any of the Below Risk Factors Present?: Yes Each Factor Represents 1 point: Medical pt on bed rest Each Risk Factor Represents 2 Points: Patient confined to bed Each Risk Factor Represents 3 Points: Age 75 years or older Other congenital or acquired thrombophilia - If yes, enter type in comment: No Thrombosis Risk Factor Assessment Total Risk Factor Score: 6 Thrombosis Risk Factor Assessment Level: High Risk Assessment and Plan Assessment: Acute unresponsiveness, etiology unclear, suspecting cardiac-underlying bradycardia,workup in progress Bradycardia, beta-edwar on hold Acute lactic acidosis, resolved with IV fluid hydration Acute hypoxic, hypercapnic respiratory failure, on mechanical ventilation Hypotension, on Levophed acute left forehead soft tissue hematoma, right thigh hematoma CAD, history of aortic valve disease with TAVR at [facility] Chronic A-fib Hypothyroidism History of prostate cancer with prostatectomy Plan: Continue on current medication regimen ,monitoring and symptomatic treatment. ICU management as per water commissioner. Sedation holiday pending. IV fluid hydration. beta-edwar and anticoagulation on hold. potential PPM as per cardiology. Echo pending. Cardiology, trauma surgery, pulmonary/water commissioner, neurology consults in place. The impression and plan of care has been dictated as directed. : I performed a history and examination of this patient, discussed the same with the dictator. I agree with the dictator's note ,documented as a scribe. Any additional findings or plans will be noted.
--- NOTE | 2024-10-27 15:03 | P.PN ---
Subjective Progress Note Date: 10/27/24 This is a 84-year-old male patient, known history of chronic atrial fibrillation, known history of aortic valve disease and the patient has undergone a TAVR procedure through [facility] few years back. The patient has also previous history of hypertension, prostate cancer and the patient undergone prostatectomy and hypothyroidism. The patient was in a good state of health. The patient [place] apparently [place] the [place] and he was found to be facedown, unresponsive in a pool of vomit. The patient received back ventilation the patient was brought into the emergency department. The patient was unresponsive, unable to speak and he is GCS score was 9. He did have signs of an obvious trauma to his head with any obvious area of abrasion or hematoma in the left forehead. A c-collar on the neck was applied. Following that, the patient was intubated and placed on the mechanical ventilator. Workup was initiated. The patient was found to be in sinus bradycardia with an atrial fibrillation rhythm. His current heart rate is in the mid 50s. The patient was given his CBC that showed no significant abnormalities. Normal coagulation profile. Sodium was at 145, BUN was 28 with a creatinine of 1.26 and a lactic acid level was initially at 7.2 dropped down to 1.1 following IV fluids. Calcium level was at 9.5. Normal LFTs. Normal troponins. proBNP level was 2790. UA was showing +1 protein, 2 WBCs and urine drug screen was negative and alcohol level was less than less than 10. Initial chest x-ray showed mild cardiomegaly along with increased interstitial markings bilaterally. EKG was in a good location. Postintubation, the patient was placed on assist-control mode rate of 20, tidal volume of 450, FiO2 of 100% and PEEP of 5. Blood gas showed a pH of 7.32 with a PCO2 of 44 and PO2 of 236. CAT scan of the head and the cervical spine showed no evidence of any fractures. No acute process. Nonspecific white matter changes, acute left forehead soft tissue hematoma and no evidence of any cervical spine fracture at the patient has multilevel degenerative disc disease. The patient also had biapical interlobular septal thickening. X-ray of the pelvis showed no evidence of any osseous fractures. At this point in time, the patient is in the intensive care unit, sedated with propofol running at 50 mcg/kg/min. Hemodynamically stable. Producing adequate amount of urine output and the patient is currently on IV fluids at a rate of 100 cc an hour. The patient is also on IV cefazolin. Afebrile. Pupils are equal and reactive to light. The patient is withdrawing to deep painful stimulation. No facial asymmetry. On 10/27/2024, the patient is being seen for a follow-up. The patient remains on propofol running at 35 mcg/kg/min. The patient is assist-control mode of mechanical ventilation at rate of 20, tidal volume of 450, FiO2 60% with a PEEP of 5. The blood gas showed a pH of 7.48 with a EHT982 and PO2 of 87. Chest x- ray remains unchanged and is essentially clear. The patient remains in normal Saint rate of 75 cc an hour. No pressors. Remains atrial fibrillation. The patient continues to have episodes of bradycardia with a heart rate as low as 29 has been reported. His current heart rate is ranging between 45 and 55. He remains in atrial fibrillation. Blood pressure is soft. Recommend initiation of dopamine. Meanwhile, the patient was given reversal for Eliquis and the patient had an infusion of Balfaxar. He does have a hematoma measuring 10 x 4.4 cm in the medial aspect of the right side. The hemoglobin from today is at 13.6, essentially stable compared to yesterday. The white cell count of 7.9. Platelet count is at 101. BUN is 26 with a creatinine of 0.89 and sodium is at 141 and a potassium level is at 3.5. TSH level was 0.27. T3 level is 114. The CPK level was 33. Troponin I level was less than 0.01. Lactic acid level has normalized and is currently down to 1.1. Objective - Vital Signs Vital signs: Vital Signs Temp 97.4 F L 10/27/24 08:00 Pulse 50 L 10/27/24 08:15 Resp 20 10/27/24 08:15 BP 155/84 10/27/24 08:15 Pulse Ox 100 10/27/24 08:15 FiO2 60 10/27/24 08:15 Intake & Output 10/26/24 10/27/24 10/27/24 18:59 06:59 18:59 Intake Total 13.511 884.977 181.512 Output Total 364 70 Balance 13.511 520.977 111.512 Weight 89.811 kg 94.7 kg Intake: IV 610 170 0.9% @ KVO 10 20 Sodium Chloride 0.9% 1, 600 150 000 ml @ 75 mls/hr IV . [id number] LEYDI Rx#:[id number] Intake, IV Titration 13.511 274.977 11.512 Amount propofoL 1,000 mg In 13.511 274.977 11.512 Empty Bag 1 bag @ 15 MCG/ KG/MIN 7.552 mls/hr IV . [id number] LEYDI Rx#:[id number] Output: Urine 364 70 Other: Voiding Method Indwelling Catheter - Exam The patient skin abrasion over the left forehead in addition to an area of hematoma. Currently sedated with propofol. Intubated on mechanical ventilator. Orotracheal orogastric tube are both in place. Head exam is unremarkable. No scleral icterus or corneal arcus noted. Neck is without jugular venous distension, thyromegaly, or carotid bruits. Ca rotid upstrokes are brisk bilaterally. Wearing a wrist hard collar Lungs are clear to auscultation and percussion. Cardiac exam reveals the PMI to be normally sized and situated. Rhythm is irregular. First and second heart sounds normal. No murmurs, rubs or gallops. Abdominal exam reveals normal bowel sounds, no masses, no organomegaly and no aortic enlargement. Extremities are nonedematous and both femoral and pedal pulses are normal. Right thigh hematoma , left hand skin tear, left arm abrasion Examination of the skin revealed no evidence of significant rashes, suspicious appearing nevi or other concerning lesions. Neurologically, the patient is awake and alert and the patient does not have any focal neurological deficit. Cranial nerves are essentially intact. - Labs CBC & Chem 7: 10/27/24 04:35 10/27/24 04:35 Labs: Abnormal Lab Results - Last 24 Hours (Table) 10/26/24 10/26/24 10/26/24 Range/Units 16:32 16:32 16:32 Hct 50.4 H (39.6-50.0) % MCV 98.4 H (80.0-97.0) fL MCHC 31.7 L (32.0-37.0) g/dL Plt Count (140-440) 10*3/uL Immature Gran # 0.06 H (0.00-0.04) 10*3/uL Monocytes # 1.15 H (0.20-1.00) 10*3/uL Eosinophils # 0.54 H (0.04-0.35) 10*3/uL ABG pH (7.35-7.45) ABG pCO2 (35-45) mmHg ABG pO2 (83-108) mmHg ABG HCO3 (21-25) mmol/L ABG Total CO2 (19-24) mmol/L ABG O2 Saturation (94-97) % Chloride 110 H (98-107) mmol/L Carbon Dioxide 20 L (22-30) mmol/L BUN 28 H (9-20) mg/dL Creatinine 1.26 H (0.66-1.25) mg/dL Glucose 105 H (74-99) mg/dL POC Glucose (mg/dL) (70-110) mg/dL Plasma Lactic Acid David 7.2 H* (0.7-2.0) mmol/L Ammonia 40 H (<30) umol/L Creatine Kinase 33 L (55-170) U/L TSH (0.465-4.680) mIU/L Prolactin (2.100-17.000) ng/mL Urine Protein (Negative) Urine Blood (Negative) Urine RBC (0-5) /hpf Ur Squamous Epith Cells (0-4) /hpf Urine Bacteria (None) /hpf Urine Mucus (None) /hpf 10/26/24 10/26/24 10/26/24 Range/Units 16:32 16:43 17:33 Hct (39.6-50.0) % MCV (80.0-97.0) fL MCHC (32.0-37.0) g/dL Plt Count (140-440) 10*3/uL Immature Gran # (0.00-0.04) 10*3/uL Monocytes # (0.20-1.00) 10*3/uL Eosinophils # (0.04-0.35) 10*3/uL ABG pH 7.32 L (7.35-7.45) ABG pCO2 (35-45) mmHg ABG pO2 236 H (83-108) mmHg ABG HCO3 (21-25) mmol/L ABG Total CO2 (19-24) mmol/L ABG O2 Saturation 99.8 H (94-97) % Chloride (98-107) mmol/L Carbon Dioxide (22-30) mmol/L BUN (9-20) mg/dL Creatinine (0.66-1.25) mg/dL Glucose (74-99) mg/dL POC Glucose (mg/dL) (70-110) mg/dL Plasma Lactic Acid David (0.7-2.0) mmol/L Ammonia (<30) umol/L Creatine Kinase (55-170) U/L TSH 0.271 L (0.465-4.680) mIU/L Prolactin 90.400 H (2.100-17.000) ng/mL Urine Protein (Negative) Urine Blood (Negative) Urine RBC (0-5) /hpf Ur Squamous Epith Cells (0-4) /hpf Urine Bacteria (None) /hpf Urine Mucus (None) /hpf 10/26/24 10/26/24 10/27/24 Range/Units 17:40 23:06 04:35 Hct (39.6-50.0) % MCV (80.0-97.0) fL MCHC 31.9 L (32.0-37.0) g/dL Plt Count 131 L 101 L (140-440) 10*3/uL Immature Gran # (0.00-0.04) 10*3/uL Monocytes # (0.20-1.00) 10*3/uL Eosinophils # (0.04-0.35) 10*3/uL ABG pH (7.35-7.45) ABG pCO2 (35-45) mmHg ABG pO2 (83-108) mmHg ABG HCO3 (21-25) mmol/L ABG Total CO2 (19-24) mmol/L ABG O2 Saturation (94-97) % Chloride (98-107) mmol/L Carbon Dioxide (22-30) mmol/L BUN (9-20) mg/dL Creatinine (0.66-1.25) mg/dL Glucose (74-99) mg/dL POC Glucose (mg/dL) (70-110) mg/dL Plasma Lactic Acid David (0.7-2.0) mmol/L Ammonia (<30) umol/L Creatine Kinase (55-170) U/L TSH (0.465-4.680) mIU/L Prolactin (2.100-17.000) ng/mL Urine Protein 1+ H (Negative) Urine Blood Small H (Negative) Urine RBC 12 H (0-5) /hpf Ur Squamous Epith Cells 5 H (0-4) /hpf Urine Bacteria Rare H (None) /hpf Urine Mucus Few H (None) /hpf 10/27/24 10/27/24 10/27/24 Range/Units 04:35 05:21 05:25 Hct (39.6-50.0) % MCV (80.0-97.0) fL MCHC (32.0-37.0) g/dL Plt Count (140-440) 10*3/uL Immature Gran # (0.00-0.04) 10*3/uL Monocytes # (0.20-1.00) 10*3/uL Eosinophils # (0.04-0.35) 10*3/uL ABG pH 7.48 H (7.35-7.45) ABG pCO2 34 L (35-45) mmHg ABG pO2 (83-108) mmHg ABG HCO3 26 H (21-25) mmol/L ABG Total CO2 27 H (19-24) mmol/L ABG O2 Saturation 97.7 H (94-97) % Chloride 110 H (98-107) mmol/L Carbon Dioxide (22-30) mmol/L BUN 26 H (9-20) mg/dL Creatinine (0.66-1.25) mg/dL Glucose 109 H (74-99) mg/dL POC Glucose (mg/dL) 111 H (70-110) mg/dL Plasma Lactic Acid David (0.7-2.0) mmol/L Ammonia (<30) umol/L Creatine Kinase (55-170) U/L TSH (0.465-4.680) mIU/L Prolactin (2.100-17.000) ng/mL Urine Protein (Negative) Urine Blood (Negative) Urine RBC (0-5) /hpf Ur Squamous Epith Cells (0-4) /hpf Urine Bacteria (None) /hpf Urine Mucus (None) /hpf Assessment and Plan Plan: Acute loss in consciousness, likely cardiogenic in nature, currently under investigation. The patient is hemodynamically stable. Cardiac rhythm is atrial fibrillation with some underlying bradycardia. No acute ST segment elevation. Troponins are negative. The patient is known to have valvular heart disease with a previous TAVR. Currently intubated on the mechanical ventilator. No pressors. CAT scan of the brain shows no acute abnormalities and the patient has a hematoma over the left forehead along with skin abrasions. Acute unresponsiveness, under investigation, CAT scan of the brain shows no acute abnormalities. Acute respiratory failure, hypoxic/hypercapnic in nature, currently intubated on mechanical ventilator. Acute lactic acidosis, improved and the lactic acid level is normalized Chronic A-fib with significant bradycardia, currently off beta-blockers. Thyroid function tests are essentially within normal limits, RIght thigh hematoma, measuring 10 x 4 cm in size, hemoglobin remained stable and the patient was given Balfaxar and Eliquis was reversed. Skin abrasions related to fall, left hand, elbow and forehead History of valvular heart disease/aortic valve disease with a previous TAVR History of prostate cancer with previous prostatectomy Hypothyroidism Questionable dementia maintained on Aricept Plan Continue vent support and dropped respirate down to 12 Continue normal saline at rate of 75 cc an hour Monitor the cardiac rhythm. Having episodes of bradycardia and the patient was started on dopamine and the cardiac rhythm will be monitored. Echocardiogram is pending Hold beta-blockers for now Hold anticoagulation with Eliquis and the patient was given Balfaxar for reversal of anticoagulant effect Triple antibiotic coverage appointment for skin abrasions Continue Synthroid Cardiology consultation Keep the patient sedated on propofol. Provide the patient a sedation holiday Compression devices lower extremity for DVT prophylaxis. Avoid anticoagulants for now Initiate enteral feeding for nutritional support Consult cardiology Consults trauma surgery Will continue to follow Critical care evaluation that was done and 35 minutes.
--- NOTE | 2024-10-27 17:15 | P.CNNES ---
History of Present Illness Consult date: 10/27/24 Requesting physician: Preeti Manzano Reason for Consult: altered mental status, found down, head injury, vent dependance History of Present Illness: Patient is a 84-year-old male came to the hospital by ambulance yesterday at 4:25 PM for unwitnessed fall and unresponsiveness. As per EMS flowsheet when they arrived at the scene, found patient laying left lateral recumbent in front of a park bench on the sidewalk with bystanders around. Bystanders advised they found the patient like this. No one witnessed what happened. EMS got a hold of family on the phone, who mentioned that patient was prescribed blood thinners due to his atrial fibrillation, but no other medical history. Patient was laying in his own vomit and blood. Patient had snoring respirations and was unresponsive to any stimuli. Patient had a golf ball sized hematoma to the left head above his left eyebrow. Patient also had abrasion to the left wrist area. Patient was placed into a c-collar. Patient became agonal respiration. Patient was ventilated via BVM at this point. Patient kept going in and out of apnea and snoring respirations. Patient was assisted ventilations during transport. Patient had a gag reflex and intubation was not attempted. Patient's vitals were blood pressure 160/80, pulse rate 73 respiration 19, saturation 90%. Vital signs on arrival blood pressure 163/100, pulse rate 72, temperature 96.9. Heart rate between 43 and 70. Blood test shows normal CBC with elevated hematocrit 50.4 with macrocytosis of 98.4. INR is normal. ABG with pH of 7.32, [id number], electrolytes are normal, BUN 28 creatinine 1.26. Lactate 7.2. Ammonia 40, CK 33. Troponin negative. TSH is 0.271. Prolactin 90.4 which is elevated. UA is negative. Urine drug screen negative. Blood alcohol level negative. Repeat hemoglobin is normal 13.[address] head showed no acute intracranial process. Nonspecific white matter changes, likely secondary to chronic small vessel ischemic disease. Acute left forehead soft tissue hematoma measuring up to [address] of the cervical spine showed no evidence of cervical spine fracture. Moderate multilevel degenerative disc disease. Partial visualization of endotracheal and orogastric tubes. Biapical intralobular septal thickening. EKG showed atrial fibrillation with slow ventricular response. Chest x-ray showed diffuse pulmonary edema. Pelvic x-ray showed no acute osseous pathology. Patient's grandson was present at the bedside at this time. He states that patient has no history of dementia. He lives independently, walks without any assistive device. 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 Patient, his daughter and grandson just came back from a [employer] in [place] last Wednesday (5 days ago). Even the day before admission, patient's daughter saw him and he was fine. He drove to his daughter's house as well and was doing well. He was apparently walking outside when he fell and was brought to the hospital by ambulance. Patient's daughter and grandson checks on him frequently. Review of Systems ROS unobtainable: due to endotracheal tube, due to mental status Past Medical History Past Medical History: Atrial Fibrillation, Hypertension, Sleep Apnea/CPAP/BIPAP Additional Past Medical History / Comment(s): Previous TAVR for Aortic valve disease History of Any Multi-Drug Resistant Organisms: None Reported Past Surgical History: Cardiac Valve Replacement, Heart Catheterization, Prostate Surgery Additional Past Surgical History / Comment(s): TAVR in 2021 Past Anesthesia/Blood Transfusion Reactions: No Reported Reaction Past Psychological History: Anxiety Smoking Status: Former smoker Past Alcohol Use History: None Reported Additional Past Alcohol Use History / Comment(s): QUIT SO YEARS AGO. 2 PACKS A DAY X 10 YEARS Past Drug Use History: None Reported - Past Family History Mother Family Medical History: Hypertension Medications and Allergies Home Medications Medication Instructions Recorded Confirmed Type Apixaban [Eliquis] 5 mg PO BID 02/16/24 10/26/24 History Metoprolol Tartrate 25 mg PO BID 02/16/24 10/26/24 History Vibegron [Gemtesa] 75 mg PO DAILY 02/16/24 10/26/24 History Donepezil [Aricept] 10 mg PO HS 10/26/24 10/26/24 History Levothyroxine Sodium [Synthroid] 137 mcg PO DAILY 10/26/24 10/26/24 History Allergies Allergy/AdvReac Type Severity Reaction Status Date / Time Iodinated Contrast Media AdvReac Chest Pain Verified 10/26/24 17:03 tetanus immune globulin AdvReac Chest Pain Verified 10/26/24 17:03 Physical Examination - Vital Signs Vital Signs: Vital Signs Temp Pulse Pulse Resp BP BP Pulse Ox 10/27/24 16:00 97.8 F 72 18 105/67 98 10/27/24 15:45 74 28 H 107/60 96 10/27/24 15:40 10/27/24 15:30 69 16 108/57 97 10/27/24 15:15 69 11 L 96/54 98 10/27/24 15:00 65 17 111/59 98 10/27/24 14:45 73 15 106/61 98 10/27/24 14:30 69 17 104/69 98 10/27/24 14:15 68 16 97/59 98 10/27/24 14:00 61 16 91/50 97 10/27/24 13:45 61 14 90/49 97 10/27/24 13:30 71 17 86/51 97 10/27/24 13:15 57 L 14 98/58 97 10/27/24 13:00 71 14 113/57 98 10/27/24 12:45 64 15 146/83 98 10/27/24 12:30 79 15 145/80 98 10/27/24 12:17 10/27/24 12:15 77 13 133/56 98 10/27/24 12:00 97.8 F 65 13 103/55 97 10/27/24 11:45 65 14 96/60 97 10/27/24 11:30 70 15 131/66 97 10/27/24 11:15 70 27 H 132/60 98 10/27/24 11:00 77 17 128/117 98 10/27/24 10:45 70 15 156/76 100 10/27/24 10:30 68 16 166/89 99 10/27/24 10:15 61 16 121/64 99 10/27/24 10:00 54 L 16 80/61 100 10/27/24 09:45 53 L 16 92/53 99 10/27/24 09:30 42 L 15 82/52 100 10/27/24 09:15 47 L 14 89/52 100 10/27/24 09:00 53 L 12 86/66 100 10/27/24 08:45 43 L 12 92/57 99 10/27/24 08:30 56 L 20 122/69 100 10/27/24 08:15 50 L 20 155/84 100 10/27/24 08:00 97.4 F L 59 L 20 140/87 100 10/27/24 07:45 53 L 20 145/72 100 10/27/24 07:30 48 L 20 113/68 100 10/27/24 07:15 48 L 20 104/53 100 10/27/24 07:00 53 L 20 107/64 100 10/27/24 06:45 52 L 20 95/76 100 10/27/24 06:30 43 L 20 89/53 100 10/27/24 06:15 61 20 111/59 100 10/27/24 06:00 47 L 20 81/57 100 10/27/24 05:45 46 L 20 73/53 99 10/27/24 05:30 53 L 20 83/53 98 10/27/24 05:15 51 L 20 87/51 98 10/27/24 05:00 52 L 20 92/52 99 10/27/24 04:45 56 L 20 100/50 98 10/27/24 04:03 10/27/24 04:00 98.0 F 45 L 20 100/50 98 10/27/24 03:00 60 20 103/71 98 10/27/24 02:00 61 20 111/72 98 10/27/24 01:00 50 L 20 93/58 97 10/27/24 00:40 10/27/24 00:00 10/26/24 23:00 62 20 138/86 99 10/26/24 22:04 56 L 22 146/84 99 10/26/24 22:00 56 L 19 145/83 99 10/26/24 21:15 10/26/24 21:00 54 L 20 139/79 98 10/26/24 20:00 97.9 F 58 L 20 134/97 97 10/26/24 19:58 10/26/24 19:28 97.9 F 61 20 124/63 99 10/26/24 19:22 56 L 18 129/78 99 10/26/24 19:05 56 L 16 139/82 99 10/26/24 19:00 56 L 16 152/79 99 10/26/24 18:55 59 L 16 152/79 99 10/26/24 18:53 58 L 16 152/79 99 10/26/24 18:50 10/26/24 17:10 10/26/24 16:49 96.9 F L 72 16 163/100 98 FiO2 10/27/24 16:00 60 10/27/24 15:45 60 10/27/24 15:40 60 10/27/24 15:30 60 10/27/24 15:15 60 10/27/24 15:00 60 10/27/24 14:45 60 10/27/24 14:30 60 10/27/24 14:15 60 10/27/24 14:00 60 10/27/24 13:45 60 10/27/24 13:30 60 10/27/24 13:15 60 10/27/24 13:00 60 10/27/24 12:45 60 10/27/24 12:30 60 10/27/24 12:17 60 10/27/24 12:15 60 10/27/24 12:00 60 10/27/24 11:45 60 10/27/24 11:30 60 10/27/24 11:15 60 10/27/24 11:00 60 10/27/24 10:45 60 10/27/24 10:30 60 10/27/24 10:15 60 10/27/24 10:00 60 10/27/24 09:45 60 10/27/24 09:30 60 10/27/24 09:15 60 10/27/24 09:00 60 10/27/24 08:45 60 10/27/24 08:30 60 10/27/24 08:15 60 10/27/24 08:00 60 10/27/24 07:45 60 10/27/24 07:30 60 10/27/24 07:15 60 10/27/24 07:00 10/27/24 06:45 10/27/24 06:30 10/27/24 06:15 10/27/24 06:00 10/27/24 05:45 10/27/24 05:30 10/27/24 05:15 10/27/24 05:00 10/27/24 04:45 10/27/24 04:03 60 10/27/24 04:00 60 10/27/24 03:00 10/27/24 02:00 10/27/24 01:00 10/27/24 00:40 60 10/27/24 00:00 60 10/26/24 23:00 10/26/24 22:04 10/26/24 22:00 10/26/24 21:15 60 10/26/24 21:00 10/26/24 20:00 60 10/26/24 19:58 60 10/26/24 19:28 60 10/26/24 19:22 10/26/24 19:05 10/26/24 19:00 10/26/24 18:55 10/26/24 18:53 10/26/24 18:50 50 10/26/24 17:10 100 10/26/24 16:49 Intake and Output 10/27/24 10/27/24 10/27/24 06:59 14:59 22:59 Intake Total 798.488 783.103 248.658 Output Total 270 1265 275 Balance 528.488 -481.897 -26.342 Intake: IV 610 680 170 0.9% @ KVO 10 80 20 Sodium Chloride 0.9% 1, 600 600 150 000 ml @ 75 mls/hr IV . [id number] [facility] Rx#:[id number] Intake, IV Titration 188.488 83.103 58.658 Amount DOPamine DRIP 800 mg In 14.619 Dextrose/Water 1 250ml. bag @ 1 MCG/KG/MIN 1.776 mls/hr IV .Q24H [facility] Rx#: [id number] Norepinephrine 8 mg In 17.699 Sodium Chloride 0.9% 250 ml @ 0.03 MCG/KG/MIN 5. 214 mls/hr IV .Q24H [facility] Rx#:[id number] propofoL 1,000 mg In 188.488 50.785 58.658 Empty Bag 1 bag @ 15 MCG/ KG/MIN 7.552 mls/hr IV . [id number] [facility] Rx#:[id number] Tube Feeding 20 20 Output: Urine 270 1265 275 Other: Voiding Method Indwelling Catheter Indwelling Catheter Weight 94.7 kg 94.7 kg Patient is an elderly male, who is intubated, sedated on propofol 30 mcg/kg/min. Patient has improved over the right forehead region but more prominently involving the left forehead region. Patient is unresponsive, not responding to any verbal commands. However with noxious stimulus (nailbed pressure) patient has facial grimacing noticed equally with stimulation of both arms and legs. On cranial nerve examination, pupils are equal, 3 mm, round and reacting to light. Visual laird cannot be tested. Oculocephalics were attempted but patient holds his head and neck tightly. Face is symmetric, lower cranial nerves cannot be tested, but patient does have gag and cough. He is breathing over the ventilator. On muscle strength testing, patient not responding to any verbal commands. With noxious stimulus response mentioned above. Deep tendon reflexes are absent in the upper limbs. Reflexes absent at the right knee, but 2 in the left knee. He has hematoma over the right knee, and lower medial thigh region. Trace at the ankles and plantars are probable upgoing bilaterally. Sensory to touch showed no response. Response to noxious stimulus as above. Cerebellar function cannot be performed because of mental status. Tone and bulk of muscles normal. Gait deferred.. On general examination, there is no carotid bruit or murmur, S1-S2 audible. Chest is clear on consultation. Abdomen is soft nontender. No organomegaly, bowel sounds present. Peripheral pulses are present. No peripheral edema. Results - Laboratory Findings CBC and BMP: 10/27/24 04:35 10/27/24 04:35 Abnormal Lab Findings: Abnormal Labs 10/26/24 10/26/24 10/26/24 16:32 16:32 16:32 Hct 50.4 H MCV 98.4 H MCHC 31.7 L Plt Count Immature Gran # 0.06 H Monocytes # 1.15 H Eosinophils # 0.54 H ABG pH ABG pCO2 ABG pO2 ABG HCO3 ABG Total CO2 ABG O2 Saturation Chloride 110 H Carbon Dioxide 20 L BUN 28 H Creatinine 1.26 H Glucose 105 H POC Glucose (mg/dL) Plasma Lactic Acid David 7.2 H* Ammonia 40 H Creatine Kinase 33 L TSH Prolactin Urine Protein Urine Blood Urine RBC Ur Squamous Epith Cells Urine Bacteria Urine Mucus 10/26/24 10/26/24 10/26/24 16:32 16:43 17:33 Hct MCV MCHC Plt Count Immature Gran # Monocytes # Eosinophils # ABG pH 7.32 L ABG pCO2 ABG pO2 236 H ABG HCO3 ABG Total CO2 ABG O2 Saturation 99.8 H Chloride Carbon Dioxide BUN Creatinine Glucose POC Glucose (mg/dL) Plasma Lactic Acid David Ammonia Creatine Kinase TSH 0.271 L Prolactin 90.400 H Urine Protein Urine Blood Urine RBC Ur Squamous Epith Cells Urine Bacteria Urine Mucus 10/26/24 10/26/24 10/27/24 17:40 23:06 04:35 Hct MCV MCHC 31.9 L Plt Count 131 L 101 L Immature Gran # Monocytes # Eosinophils # ABG pH ABG pCO2 ABG pO2 ABG HCO3 ABG Total CO2 ABG O2 Saturation Chloride Carbon Dioxide BUN Creatinine Glucose POC Glucose (mg/dL) Plasma Lactic Acid David Ammonia Creatine Kinase TSH Prolactin Urine Protein 1+ H Urine Blood Small H Urine RBC 12 H Ur Squamous Epith Cells 5 H Urine Bacteria Rare H Urine Mucus Few H 10/27/24 10/27/24 10/27/24 04:35 05:21 05:25 Hct MCV MCHC Plt Count Immature Gran # Monocytes # Eosinophils # ABG pH 7.48 H ABG pCO2 34 L ABG pO2 ABG HCO3 26 H ABG Total CO2 27 H ABG O2 Saturation 97.7 H Chloride 110 H Carbon Dioxide BUN 26 H Creatinine Glucose 109 H POC Glucose (mg/dL) 111 H Plasma Lactic Acid David Ammonia Creatine Kinase TSH Prolactin Urine Protein Urine Blood Urine RBC Ur Squamous Epith Cells Urine Bacteria Urine Mucus Assessment and Plan Assessment: Acute loss of consciousness and subsequent unresponsiveness. Unclear cause. Rule out cardiac arrhythmia. Patient is running low heart rate. Limited examination is nonfocal. Acute respiratory failure, intubated on mechanical ventilation Acute lactic acidosis Chronic atrial fibrillation with low ventricular rate. Patient on Eliquis. Right thigh hematoma getting worse. Patient was given Balfaxar to reverse Eliquis. Skin abrasion related to fall, left hand, elbow and forehead History of TAVR History of prostate cancer with previous prostatectomy Hypothyroidism Plan: * Stat EEG was performed today, which was abnormal due to background slowing of moderate to severe degree. Some triphasic waves were seen, which is also consistent with metabolic encephalopathy. * Patient's ammonia is slightly elevated. Consider lactulose. Rule out chronic liver disease. * Patient has atrial fibrillation, but Eliquis has been reversed because of right thigh hematoma. Patient at risk for cardiac event. * With sedation holiday today, patient did open the eyes, but was not tracking or following directions per nurse report. At present patient back on propofol 30 mcg/kg/min. * Patient will undergo sedation holiday in the morning. * If mentation does not improve, may need repeat CT head in 1 to 2 days. * Neurology will follow clinically. Thank you for the consult.
[2024-10-27 17:42] LABS: Glucose,Whole Blood 112 mg/dL (70-110)
[2024-10-27 23:06] LABS: Glucose,Whole Blood 128 mg/dL (70-110)
--- NOTE | 2024-10-28 02:42 | EEG ---
ELECTROENCEPHALOGRAM REPORT PREAMBLE: This is an 84-year-old male who was found unresponsive. [place], found face down, unresponsive in a pool of vomit. CURRENT MEDICATIONS: 1. Peridex. 2. Dopamine. 3. Synthroid. 4. Potassium. 5. Norepinephrine. 6. Propofol. EEG FINDINGS: This is a 21-channel digital EEG recorded with video component, utilizing 10/20 international system with referential and bipolar montages. The background consists of moderately well-developed, poorly regulated, mixed frequencies of 6-7 hertz theta intermixed with 2-3 hertz delta slowing in bihemispheric region. Background does not seem to be reactive to eye opening or closing. Photic driving response was not seen. Different stages of sleep were not seen. Some triphasic waves were seen sporadically during this study. No focal or generalized epileptiform activity was seen. No electrographic seizure was recorded. IMPRESSION: This is an abnormal EEG due to background slowing of moderate to severe degree. This is suggestive of generalized cerebral dysfunction as can be seen with toxic metabolic encephalopathy or related to diffuse structural brain abnormality. Clinical correlation is recommended. No epileptiform activity was seen. Presence of some sporadic triphasic waves may suggest hepatic dysfunction. MMODL / IJN: [id number] /
[2024-10-28 05:10] LABS: ABG HCO3 24 mmol/L (21-25); ABG PCO2 41 mmHg (35-45); ABG PH 7.38 (7.35-7.45); ABG PO2 154 mmHg (83-108); ABG TCO2 25 mmol/L (19-24)
[2024-10-28 05:14] LABS: Allen Test Performed? no
[2024-10-28 07:02] LABS: Glucose,Whole Blood 130 mg/dL (70-110)
--- NOTE | 2024-10-28 07:20 | XR ---
EXAMINATION TYPE: XR chest 1V portable DATE OF EXAM: 10/28/2024 4:52 AM COMPARISON: Chest radiographs from CLINICAL INDICATION: Male, 84 years old with history of Tube placement; [facility] TECHNIQUE: XR chest 1V portable Frontal view of the chest. FINDINGS: Lungs/Pleura: Left lower lung airspace opacities There is no evidence of pleural effusion, focal cons olidation, or pneumothorax. Pulmonary vascularity: Unremarkable. Heart/mediastinum: Cardiomediastinal silhouette is unremarkable. Musculoskeletal: No acute osseous pathology. Other findings: None Lines/Tubes: Endotracheal tube with distal tip 5.5 cm above the shaina. IMPRESSION: Similar left-sided airspace opacities [facility], , 10/28/2024 7:18 AM
[2024-10-28 07:43] LABS: Basophils # (A) 0.04 10*3/uL (0.00-0.10); Basophils % (A) 0.4 %; Eosinophils # (A) 0.40 10*3/uL (0.04-0.35); Eosinophils % (A) 3.6 %; HCT 45.3 % (39.6-50.0); HGB 14.5 g/dL (13.0-17.0); Lymphocytes # (A) 1.52 10*3/uL (0.90-5.00); Lymphocytes % (A) 13.6 %; MCH 31.2 pg (27.0-32.0); MCHC 32.0 g/dL (32.0-37.0); MCV 97.4 fL (80.0-97.0); Monocytes # (A) 1.51 10*3/uL (0.20-1.00); Monocytes % (A) 13.5 %; Neutrophils # (A) 7.64 10*3/uL (1.80-7.70); Neutrophils % (A) 68.3 %; Platelet Count 112 10*3/uL (140-440); RBC 4.65 10*6/uL (4.40-5.60); RDW 15.5 % (11.5-14.5); WBC 11.18 10*3/uL (4.50-10.00)
[2024-10-28 08:00] LABS: African American GFR (CKD) >90 (>60 ml/min/1.73 sqM); Anion Gap 8 mmol/L; Blood Urea Nitrogen 18 mg/dL (9-20); Carbon Dioxide 21 mmol/L (22-30); Chloride 114 mmol/L (98-107); Glucose 116 mg/dL (74-99); Potassium 4.2 mmol/L (3.5-5.1); Sodium 143 mmol/L (137-145)
[2024-10-28 08:01] LABS: Calcium 8.3 mg/dL (8.4-10.2); Magnesium 2.0 mg/dL (1.6-2.3); Non-African American GFR(CKD) 79 (>60 ml/min/1.73 sqM)
[2024-10-28 08:55] LABS: Stomatocytes Present
[2024-10-28] MEDS: AMPICILLIN-SULBACTAM 1.5 GM in SODIUM CHLORIDE 0.9% 50 ML IVPB SCH (10:41)
--- NOTE | 2024-10-28 11:16 | P.PN ---
Subjective Progress Note Date: 10/28/24 The patient is an 84-year-old male who presented to the hospital after mechanical fall. Patient was found down at home with scalp laceration. Cardiology has been consulted for bradycardia. Heart rate was in the 30s upon arrival to the emergency room and he had frequent episodes of 5 to 6-second pauses. Patient had been started on dopamine drip with significant improvement in his heart rate. He is no longer on vasopressors Was interviewed and examined. Patient is currently sedated on ventilator. Patient does arouse to voice during sedation holidays according to nursing staff. There is some concern about a concussion and mild encephalopathy. GENERAL: Well-appearing, well-nourished and in no acute distress. Patient is sedated on ventilator. NECK: Supple without JVD or thyromegaly. LUNGS: Breath sounds diminished to auscultation bilaterally. Respiration equal and unlabored. No wheezes, rales or rhonchi. HEART: Heart rate irregular. Soft systolic murmur. No rubs or gallops EXTREMITIES: +1 bilateral lower extremity edema. Palpable pulses. TELEMETRY: Atrial fibrillation with heart rates in the mid 70s LABS: 11.1, hemoglobin 14.5, hematocrit 45.3, platelet 112, sodium 143, potassium 4.2, BUN 18, creatinine 0.86 IMPRESSION: Mechanical fall Persistent atrial fibrillation, on anticoagulation Sick sinus syndrome Pulmonary edema Hypothyroidism, suppressed TSH PLAN: Continue dopamine drip Proceed with pacemaker implantation. Date and time to be determined based on pulmonary status. Further recommendations to be based upon clinical course I am dictating on behalf of Dr Yanick Wyatt's history/physical and assessment/plan. Objective - Vital Signs Vital signs: Vital Signs Temp 98.4 F 10/28/24 00:00 Pulse 77 10/28/24 08:00 Resp 14 10/28/24 08:00 BP 92/55 10/28/24 08:00 Pulse Ox 99 10/28/24 08:00 FiO2 50 10/28/24 08:53 Intake & Output 10/27/24 10/28/24 10/28/24 18:59 06:59 18:59 Intake Total 5303.096 0790.444 341.064 Output Total 1660 575 80 Balance -358.141 907.444 261.064 Weight 94.7 kg Intake: IV 1020 1020 170 0.9% @ KVO 120 120 20 Sodium Chloride 0.9% 1, 900 900 150 000 ml @ 75 mls/hr IV . [id number] [facility] Rx#:[id number] Intake, IV Titration 191.859 202.444 81.064 Amount DOPamine DRIP 800 mg In 14.619 Dextrose/Water 1 250ml. bag @ 1 MCG/KG/MIN 1.776 mls/hr IV .Q24H [facility] Rx#: [id number] Norepinephrine 8 mg In 17.699 37.800 Sodium Chloride 0.9% 250 ml @ 0.03 MCG/KG/MIN 5. 214 mls/hr IV .Q24H [facility] Rx#:[id number] propofoL 1,000 mg In 159.541 164.644 81.064 Empty Bag 1 bag @ 15 MCG/ KG/MIN 7.552 mls/hr IV . [id number] [facility] Rx#:[id number] Tube Feeding 60 200 60 Other 30 60 30 Output: Urine 1660 575 80 Other: Voiding Method Indwelling Catheter Indwelling Catheter - Labs CBC & Chem 7: 10/28/24 06:50 10/28/24 06:50 Labs: Abnormal Lab Results - Last 24 Hours (Table) 10/27/24 10/27/24 10/28/24 Range/Units 17:40 23:05 05:00 WBC (4.50-10.00) 10*3/uL MCV (80.0-97.0) fL Plt Count (140-440) 10*3/uL Immature Gran # (0.00-0.04) 10*3/uL Monocytes # (0.20-1.00) 10*3/uL Eosinophils # (0.04-0.35) 10*3/uL ABG pO2 154 H (83-108) mmHg ABG Total CO2 25 H (19-24) mmol/L ABG O2 Saturation 99.5 H (94-97) % Chloride (98-107) mmol/L Carbon Dioxide (22-30) mmol/L Glucose (74-99) mg/dL POC Glucose (mg/dL) 112 H 128 H (70-110) mg/dL Calcium (8.4-10.2) mg/dL 06/28/25 06/28/25 06/28/25 Range/Units 06:50 06:50 07:00 WBC 11.18 H (4.50-10.00) 10*3/uL MCV 97.4 H (80.0-97.0) fL Plt Count 112 L (140-440) 10*3/uL Immature Gran # 0.07 H (0.00-0.04) 10*3/uL Monocytes # 1.51 H (0.20-1.00) 10*3/uL Eosinophils # 0.40 H (0.04-0.35) 10*3/uL ABG pO2 (83-108) mmHg ABG Total CO2 (19-24) mmol/L ABG O2 Saturation (94-97) % Chloride 114 H (98-107) mmol/L Carbon Dioxide 21 L (22-30) mmol/L Glucose 116 H (74-99) mg/dL POC Glucose (mg/dL) 130 H (70-110) mg/dL Calcium 8.3 L (8.4-10.2) mg/dL
--- NOTE | 2024-10-28 11:33 | P.PN ---
Subjective Progress Note Date: 10/27/24 CHIEF COMPLAINT: Level 1 trauma, found down HISTORY OF PRESENT ILLNESS: The patient is a 80-year-old male admitted after being found down and unresponsive as a level 1 trauma. Patient admitted to the ICU. At this point, no acute life-threatening injuries identified. Unknown cause of loss of consciousness which may be medically related at this time. ROS: No reports of nausea and vomiting. No bowel movements. No fevers or chills. No new chest pain. No productive sputum PHYSICAL EXAM: VITAL SIGNS: Reviewed CONSTITUTIONAL: Well developed and in no acute distress. EYES: Conjuctivae without sclera icterus. Extraocular movements grossly intact. HEAD, EARS, NOSE, THROAT: Moist buccal mucosa. Head is atraumatic, normocephalic. Hears conversational speech. No nasal drainage. RESPIRATORY: Non-labored respirations and equal bilateral excursions. CARDIOVASCULAR: Palpable 2+ radial pulses. ABDOMEN: Nontender. MUSCULOSKELETAL: No clubbing cyanosis. SKIN: Good skin turgor. Well perfused. NEUROLOGIC: Cranial nerves II through XII grossly intact. No focal or lateralizing signs. PSYCH: Appropriate affect. Alert and oriented to person, place and time. CLINICAL LABS: Reviewed. Hemoglobin 13.6. White count normal. ASSESSMENT: 1. Loss of consciousness status post fall ground-level 2. History of blood thinner use 3. History of valvular replacement PLAN: 1. Patient remains in the ICU intubated 2. No overt life-threatening surgical procedures identified at this time. Agree with transfer of care to medicine team. 3. Neurological assessment in process per neurology team Dictation was produced using [employer] dictation software. Please excuse any grammatical, word or spelling errors. Objective - Vital Signs Vital signs: Vital Signs Temp 97.4 F L 10/27/24 08:00 Pulse 54 L 10/27/24 10:00 Resp 16 10/27/24 10:00 BP 80/61 10/27/24 10:00 Pulse Ox 100 10/27/24 10:00 FiO2 60 10/27/24 10:00 Intake & Output 10/26/24 10/27/24 10/27/24 18:59 06:59 18:59 Intake Total 13.511 884.977 369.197 Output Total 364 115 Balance 13.511 520.977 254.197 Weight 89.811 kg 94.7 kg Intake: IV 610 340 0.9% @ KVO 10 40 Sodium Chloride 0.9% 1, 600 300 000 ml @ 75 mls/hr IV . [id number] [facility] Rx#:[id number] Intake, IV Titration 13.511 274.977 29.197 Amount DOPamine DRIP 800 mg In 0.71 Dextrose/Water 1 250ml. bag @ 1 MCG/KG/MIN 1.776 mls/hr IV .Q24H [facility] Rx#: [id number] Norepinephrine 8 mg In 16.975 Sodium Chloride 0.9% 250 ml @ 0.03 MCG/KG/MIN 5. 214 mls/hr IV .Q24H [facility] Rx#:[id number] propofoL 1,000 mg In 13.511 274.977 11.512 Empty Bag 1 bag @ 15 MCG/ KG/MIN 7.552 mls/hr IV . [id number] [facility] Rx#:[id number] Output: Urine 364 115 Other: Voiding Method Indwelling Catheter Indwelling Catheter - Labs CBC & Chem 7: 10/28/24 06:50 10/28/24 06:50 Labs: Abnormal Lab Results - Last 24 Hours (Table) 10/26/24 10/26/24 10/26/24 Range/Units 16:32 16:32 16:32 Hct 50.4 H (39.6-50.0) % MCV 98.4 H (80.0-97.0) fL MCHC 31.7 L (32.0-37.0) g/dL Plt Count (140-440) 10*3/uL Immature Gran # 0.06 H (0.00-0.04) 10*3/uL Monocytes # 1.15 H (0.20-1.00) 10*3/uL Eosinophils # 0.54 H (0.04-0.35) 10*3/uL ABG pH (7.35-7.45) ABG pCO2 (35-45) mmHg ABG pO2 (83-108) mmHg ABG HCO3 (21-25) mmol/L ABG Total CO2 (19-24) mmol/L ABG O2 Saturation (94-97) % Chloride 110 H (98-107) mmol/L Carbon Dioxide 20 L (22-30) mmol/L BUN 28 H (9-20) mg/dL Creatinine 1.26 H (0.66-1.25) mg/dL Glucose 105 H (74-99) mg/dL POC Glucose (mg/dL) (70-110) mg/dL Plasma Lactic Acid David 7.2 H* (0.7-2.0) mmol/L Ammonia 40 H (<30) umol/L Creatine Kinase 33 L (55-170) U/L TSH (0.465-4.680) mIU/L Prolactin (2.100-17.000) ng/mL Urine Protein (Negative) Urine Blood (Negative) Urine RBC (0-5) /hpf Ur Squamous Epith Cells (0-4) /hpf Urine Bacteria (None) /hpf Urine Mucus (None) /hpf 10/26/24 10/26/24 10/26/24 Range/Units 16:32 16:43 17:33 Hct (39.6-50.0) % MCV (80.0-97.0) fL MCHC (32.0-37.0) g/dL Plt Count (140-440) 10*3/uL Immature Gran # (0.00-0.04) 10*3/uL Monocytes # (0.20-1.00) 10*3/uL Eosinophils # (0.04-0.35) 10*3/uL ABG pH 7.32 L (7.35-7.45) ABG pCO2 (35-45) mmHg ABG pO2 236 H (83-108) mmHg ABG HCO3 (21-25) mmol/L ABG Total CO2 (19-24) mmol/L ABG O2 Saturation 99.8 H (94-97) % Chloride (98-107) mmol/L Carbon Dioxide (22-30) mmol/L BUN (9-20) mg/dL Creatinine (0.66-1.25) mg/dL Glucose (74-99) mg/dL POC Glucose (mg/dL) (70-110) mg/dL Plasma Lactic Acid David (0.7-2.0) mmol/L Ammonia (<30) umol/L Creatine Kinase (55-170) U/L TSH 0.271 L (0.465-4.680) mIU/L Prolactin 90.400 H (2.100-17.000) ng/mL Urine Protein (Negative) Urine Blood (Negative) Urine RBC (0-5) /hpf Ur Squamous Epith Cells (0-4) /hpf Urine Bacteria (None) /hpf Urine Mucus (None) /hpf 10/26/24 10/26/24 10/27/24 Range/Units 17:40 23:06 04:35 Hct (39.6-50.0) % MCV (80.0-97.0) fL MCHC 31.9 L (32.0-37.0) g/dL Plt Count 131 L 101 L (140-440) 10*3/uL Immature Gran # (0.00-0.04) 10*3/uL Monocytes # (0.20-1.00) 10*3/uL Eosinophils # (0.04-0.35) 10*3/uL ABG pH (7.35-7.45) ABG pCO2 (35-45) mmHg ABG pO2 (83-108) mmHg ABG HCO3 (21-25) mmol/L ABG Total CO2 (19-24) mmol/L ABG O2 Saturation (94-97) % Chloride (98-107) mmol/L Carbon Dioxide (22-30) mmol/L BUN (9-20) mg/dL Creatinine (0.66-1.25) mg/dL Glucose (74-99) mg/dL POC Glucose (mg/dL) (70-110) mg/dL Plasma Lactic Acid David (0.7-2.0) mmol/L Ammonia (<30) umol/L Creatine Kinase (55-170) U/L TSH (0.465-4.680) mIU/L Prolactin (2.100-17.000) ng/mL Urine Protein 1+ H (Negative) Urine Blood Small H (Negative) Urine RBC 12 H (0-5) /hpf Ur Squamous Epith Cells 5 H (0-4) /hpf Urine Bacteria Rare H (None) /hpf Urine Mucus Few H (None) /hpf 10/27/24 10/27/24 10/27/24 Range/Units 04:35 05:21 05:25 Hct (39.6-50.0) % MCV (80.0-97.0) fL MCHC (32.0-37.0) g/dL Plt Count (140-440) 10*3/uL Immature Gran # (0.00-0.04) 10*3/uL Monocytes # (0.20-1.00) 10*3/uL Eosinophils # (0.04-0.35) 10*3/uL ABG pH 7.48 H (7.35-7.45) ABG pCO2 34 L (35-45) mmHg ABG pO2 (83-108) mmHg ABG HCO3 26 H (21-25) mmol/L ABG Total CO2 27 H (19-24) mmol/L ABG O2 Saturation 97.7 H (94-97) % Chloride 110 H (98-107) mmol/L Carbon Dioxide (22-30) mmol/L BUN 26 H (9-20) mg/dL Creatinine (0.66-1.25) mg/dL Glucose 109 H (74-99) mg/dL POC Glucose (mg/dL) 111 H (70-110) mg/dL Plasma Lactic Acid David (0.7-2.0) mmol/L Ammonia (<30) umol/L Creatine Kinase (55-170) U/L TSH (0.465-4.680) mIU/L Prolactin (2.100-17.000) ng/mL Urine Protein (Negative) Urine Blood (Negative) Urine RBC (0-5) /hpf Ur Squamous Epith Cells (0-4) /hpf Urine Bacteria (None) /hpf Urine Mucus (None) /hpf
--- NOTE | 2024-10-28 11:37 | P.PN ---
Subjective Progress Note Date: 10/28/24 CHIEF COMPLAINT: Level 1 trauma, found down HISTORY OF PRESENT ILLNESS: The patient is a 80-year-old male admitted after being found down and unresponsive as a level 1 trauma. Patient admitted to the ICU. Family at bedside. Family is asked about use of Aricept. Family does report that patient last year March reported troubles with his memory and has since been on Aricept. 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 ROS: No reports of nausea and vomiting. No bowel movements. No fevers or chills. PHYSICAL EXAM: VITAL SIGNS: Reviewed CONSTITUTIONAL: Well developed and in no acute distress. EYES: Conjuctivae without sclera icterus. Extraocular movements grossly intact. HEAD, EARS, NOSE, THROAT: Moist buccal mucosa. Head is atraumatic, normocephalic. Hears conversational speech. No nasal drainage. RESPIRATORY: Non-labored respirations and equal bilateral excursions. CARDIOVASCULAR: Palpable 2+ radial pulses. ABDOMEN: Nontender. MUSCULOSKELETAL: No clubbing cyanosis. Right medial knee hematoma. SKIN: Good skin turgor. Well perfused. NEUROLOGIC: Cranial nerves II through XII grossly intact. No focal or lateralizing signs. PSYCH: Appropriate affect. Alert and oriented to person, place and time. REPORT: Right CT knee reports demonstrate 10 cm soft tissue hematoma right knee. CLINICAL LABS: Reviewed. Blood gases pH 7.38. Toxicology screen negative. ASSESSMENT: 1. Loss of consciousness status post fall ground-level 2. History of blood thinner use 3. History of valvular replacement 4. Frontal hematoma PLAN: 1. Overall, patient pending additional neurological assessment once extubated. 2. Family is concerned of hematoma of the right knee. Patient did have a CT of the knee demonstrating a large hematoma without any obvious fractures however per family question will obtain orthopedic consultation. 3. Continue ICU care as patient is still intubated. Dictation was produced using [employer] dictation software. Please excuse any grammatical, word or spelling errors. Objective - Vital Signs Vital signs: Vital Signs Temp 98.4 F 10/28/24 00:00 Pulse 73 10/28/24 11:15 Resp 16 10/28/24 11:15 BP 102/56 10/28/24 11:15 Pulse Ox 98 10/28/24 11:15 FiO2 50 10/28/24 11:15 Intake & Output 10/27/24 10/28/24 10/28/24 18:59 06:59 18:59 Intake Total 9781.228 1446.444 686.064 Output Total 1660 575 230 Balance -358.141 907.444 456.064 Weight 94.7 kg Intake: IV 1020 1020 425 0.9% @ KVO 120 120 50 Sodium Chloride 0.9% 1, 900 900 375 000 ml @ 75 mls/hr IV . [id number] [facility] Rx#:[id number] Intake, IV Titration 191.859 202.444 81.064 Amount DOPamine DRIP 800 mg In 14.619 Dextrose/Water 1 250ml. bag @ 1 MCG/KG/MIN 1.776 mls/hr IV .Q24H [facility] Rx#: [id number] Norepinephrine 8 mg In 17.699 37.800 Sodium Chloride 0.9% 250 ml @ 0.03 MCG/KG/MIN 5. 214 mls/hr IV .Q24H [facility] Rx#:[id number] propofoL 1,000 mg In 159.541 164.644 81.064 Empty Bag 1 bag @ 15 MCG/ KG/MIN 7.552 mls/hr IV . [id number] [facility] Rx#:[id number] Tube Feeding 60 200 150 Other 30 60 30 Output: Urine 1660 575 230 Other: Voiding Method Indwelling Catheter Indwelling Catheter Indwelling Catheter - Labs CBC & Chem 7: 10/28/24 06:50 10/28/24 06:50 Labs: Abnormal Lab Results - Last 24 Hours (Table) 10/27/24 10/27/24 10/28/24 Range/Units 17:40 23:05 05:00 WBC (4.50-10.00) 10*3/uL MCV (80.0-97.0) fL Plt Count (140-440) 10*3/uL Immature Gran # (0.00-0.04) 10*3/uL Monocytes # (0.20-1.00) 10*3/uL Eosinophils # (0.04-0.35) 10*3/uL ABG pO2 154 H (83-108) mmHg ABG Total CO2 25 H (19-24) mmol/L ABG O2 Saturation 99.5 H (94-97) % Chloride (98-107) mmol/L Carbon Dioxide (22-30) mmol/L Glucose (74-99) mg/dL POC Glucose (mg/dL) 112 H 128 H (70-110) mg/dL Calcium (8.4-10.2) mg/dL 10/28/24 10/28/24 10/28/24 Range/Units 06:50 06:50 07:00 WBC 11.18 H (4.50-10.00) 10*3/uL MCV 97.4 H (80.0-97.0) fL Plt Count 112 L (140-440) 10*3/uL Immature Gran # 0.07 H (0.00-0.04) 10*3/uL Monocytes # 1.51 H (0.20-1.00) 10*3/uL Eosinophils # 0.40 H (0.04-0.35) 10*3/uL ABG pO2 (83-108) mmHg ABG Total CO2 (19-24) mmol/L ABG O2 Saturation (94-97) % Chloride 114 H (98-107) mmol/L Carbon Dioxide 21 L (22-30) mmol/L Glucose 116 H (74-99) mg/dL POC Glucose (mg/dL) 130 H (70-110) mg/dL Calcium 8.3 L (8.4-10.2) mg/dL
[2024-10-28 11:47] LABS: Glucose,Whole Blood 107 mg/dL (70-110)
--- NOTE | 2024-10-28 11:56 | CA ---
Transthoracic Echo Report Name: Cody Dee Age: 84 Gender: M : 1940 Exam Date: 10/27/2024 16:24 Exam Location: [facility] Ht (in): 68 Wt (lb): 208 Ordering Physician: Garth Lan MD Attending/Referring Phys: Sort Line Stephany Sharma RDCS Procedure CPT: Indications: bradycardia, cardiomegaly Cardiac Hx: Technical Quality: Technically difficult study Contrast 1: Definity Total Dose (mL): 2 Contrast 2: Total Dose (mL): MEASUREMENTS (Male / Female) Normal Values 2D ECHO LV Diastolic Diameter PLAX 2.8 cm 4.2 - 5.9 / 3.9 - 5.3 cm LV Systolic Diameter PLAX 1.9 cm IVS Diastolic Thickness 1.6 cm 0.6 - 1.0 / 0.6 - 0.9 cm LVPW Diastolic Thickness 1.7 cm 0.6 - 1.0 / 0.6 - 0.9 cm LV Relative Wall Thickness 1.2 RV Internal Dim ED PLAX 2.6 cm LVOT Diameter 2.3 cm LV Diastolic Volume MOD BP 73.0 cm??? 67 - 155 / 56 - 104 cm??? LV Systolic Volume MOD BP 27.4 cm??? 22 - 58 / 19 - 49 cm??? LV Ejection Fraction MOD BP 62.5 % >= 55 % LV Cardiac Index MOD BP 1439.2 cm???/min???m??? LV Diastolic Volume MOD 4C 71.7 cm??? LV Systolic Volume MOD 4C 20.6 cm??? LV Ejection Fraction MOD 4C 71.3 % LV Cardiac Index MOD 4C 1610.4 cm???/min???m??? LV Diastolic Length 4C 7.2 cm LV Systolic Length 4C 6.2 cm LV Diastolic Volume MOD 2C 65.0 cm??? LV Systolic Volume MOD 2C 36.7 cm??? LV Ejection Fraction MOD 2C 43.5 % LV Cardiac Index MOD 2C 890.3 cm???/min???m??? LV Diastolic Length 2C 6.3 cm LV Systolic Length 2C 6.1 cm LA Volume 76.7 cm??? 18 - 58 / 22 - 52 cm??? LA Volume Index 35.6 cm???/m??? 16 - 28 cm???/m??? DOPPLER AV Peak Velocity 224.2 cm/s AV Peak Gradient 20.1 mmHg AV Mean Velocity 154.6 cm/s AV Mean Gradient 10.7 mmHg AV Velocity Time Integral 40.7 cm LVOT Peak Velocity 92.9 cm/s LVOT Peak Gradient 3.5 mmHg LVOT Velocity Time Integral 19.1 cm LVOT Stroke Volume 80.2 cm??? LVOT Stroke Volume Index 38.6 ml/m??? LVOT Cardiac Index 2527.3 cm???/min???m??? AV Area Cont Eq vti 2.0 cm??? AV Area Cont Eq pk 1.7 cm??? MV Area PHT 2.8 cm??? Mitral E Point Velocity 89.1 cm/s Mitral A Point Velocity 28.5 cm/s Mitral E to A Ratio 3.1 MV Deceleration Time 267.9 ms MV E' Velocity 6.4 cm/s Mitral E to MV E' Ratio 14.0 TR Peak Velocity 244.0 cm/s TR Peak Gradient 23.8 mmHg Right Ventricular Systolic Press 28.8 mmHg FINDINGS Left Ventricle Moderately increased left ventricular wall thickness. Left ventricular cavity size normal. Normal left ventricular systolic function with no obvious regional wall motion abnormalities. Left ventricular ejection fraction is estimated at 60 %. Right Ventricle Right ventricle not well visualized. Right ventricular systolic pressure within normal limits. Right Atrium Right atrium not well visualized. Left Atrium Moderately increased left atrial volume. Mitral Valve Structurally normal mitral valve. Mild thickening/calcification of the anterior mitral valve leaflet. Mild mitral regurgitation. Aortic Valve Normally functioning bioprosthetic aortic valve without stenosis with a peak velocity of 2.2 m/s, peak gradient 20 mmHg, mean gradient 11 mmHg, and estimated aortic valve area of 1.7 cm???. Tricuspid Valve Structurally normal tricuspid valve. Mild tricuspid regurgitation. Pulmonic Valve Structurally normal pulmonic valve. Trace pulmonic regurgitation. Pericardium No pericardial effusion. Aorta Normal size aortic root and proximal ascending aorta. CONCLUSIONS LVEF 60% No obvious regional wall motion abnormality Moderate interpretation Mild mitral regurgitation Bioprosthetic TAVR aortic valve with mean gradient of 11 mmHg, no significant regurgitation or PVL No pericardial effusion Previewed by: Dr Mj Cartwright (Electronically Signed) Final Date: 28 October 2024 11:55
--- NOTE | 2024-10-28 12:59 | P.PN ---
Subjective This is not 84-year old male with past medical history significant for TAVR at [facility], aortic valve disease, chronic atrial fibrillation, hypertension, prostate cancer with prostatectomy, hypothyroidism and multiple other medical issues, [place] of blood and vomit, downtime unknown. Sustained head injury with abrasion and hematoma of the left forehead. EMS responded, GCS of 9, placed in a c-collar, received bagged ventilation.EKG reported atrial fibrillation. Patient is currently in ICU, mechanically laureen tilated with FiO2 60%/+5 of PEEP, sedated on diprovan and on Levophed for pressure control ,IV fluids and cefazolin. Telemetry reporting bradycardic with heart rates as low as in the 40s. Patient's home medication including metoprolol which is on hold. Anticoagulation currently on hold. On admission lactic acid 7.2, normal WBC, hemoglobin 16, creatinine 1.26 .received IV fluid resuscitation.afebrile, normal WBC, hemoglobin 13.6, platelets 101 Sodium 141 potassium 3.5 bicarb increased from 20 to 24 BUN 26 with a creatinine 89 and a lactic acid responded to IV fluids ,decreased to 1.1. Calcium, LFT s, troponin within normal limits. ProBNP 2790. UA reported +1 protein, small blood, negative nitrates and leukocytes 2 WBCs. Toxicology screen negative ,alcohol level less than 10. CT brain C-spine reporting no acute intracranial process , no fractures, acute left forehead soft tissue hematoma measuring up to 1 cm thickness, no evidence of cervical spine fracture , moderate multilevel degenerative disc disease, biapical intralobular septal thickening. Pelvis x-ray reported no evidence of fracture or dislocation, no acute osseous pathology. 10/28 patient presents because found by family unresponsiveness on the ground. Patient currently is intubated and on mechanical ventilation He is afebrile. Labs showing leukocytosis of 11.1. Rest of CBC is unremarkable. pH normal 7.3. Creatinine within the reference range. Chest x-ray: Endotracheal tube within distal tip 5.5 cm above shaina. Similar left-sided airspace opacity Patient currently covered with Unasyn and also getting IV fluid normal saline 75 mL/h Echocardiogram:Ejection fraction is estimated at 60%. Bioprosthetic TAVR About 10.[address] of the right knee showing large hematoma along the medial aspect of the lower thigh Patient undergoing breathing trial, he started waking up Also he is on dopamine drip eventually he will need permanent pacemaker He is on antibiotic for pulmonary infiltrate seen possibly on the chest x-ray Active Medications Generic Name Dose Route Start Last Admin Trade Name Freq PRN Reason Stop Dose Admin Albuterol/Ipratropium 3 ml 10/26/24 18:55 Ipratropium-Albuterol 3 Ml Neb INHALATION RT-Q4H PRN Shortness Of Breath Or Wheezing Chlorhexidine Gluconate 15 ml 10/26/24 21:15 10/28/24 08:06 Chlorhexidine Gluconate 15 Ml Cup MUCOUS MEM 15 ml BID LEYDI Administration Hydromorphone HCl 0.5 mg 10/26/24 23:40 10/28/24 01:03 Hydromorphone 0.5 Mg/0.5 Ml Syringe IVP 0.5 mg Q6HR PRN Administration Pain Propofol 1,000 mg/ IV Solution 100 mls @ 7.552 mls/hr 10/26/24 16:45 10/28/24 11:42 IV 0 mcg/kg/min .[id number] LEYDI 0 mls/hr Titration Protocol 15 MCG/KG/MIN Sodium Chloride 1,000 mls @ 75 mls/hr 10/26/24 23:30 10/28/24 00:55 Saline 0.9% IV 75 mls/hr .[id number] LEYDI Administration Norepinephrine Bitartrate 8 mg 258 mls @ 5.214 mls/hr 10/27/24 05:45 10/28/24 05:39 / Sodium Chloride IV Not Given .Q24H LEYDI Protocol 0.03 MCG/KG/MIN Dopamine HCl/Dextrose 800 mg/ 250 mls @ 1.776 mls/hr 10/27/24 09:00 10/28/24 09:00 IV Solution IV 3 mcg/kg/min .Q24H LEYDI 5.327 mls/hr Administration Protocol 1 MCG/KG/MIN Ampicillin Sodium/Sulbactam 50 mls @ 100 mls/hr 10/28/24 09:00 10/28/24 10:41 Sodium 1.5 gm/ Sodium Chloride IVPB 100 mls/hr Q6H LEYDI Administration Protocol Levothyroxine Sodium 137 mcg 10/27/24 06:00 10/28/24 06:47 Levothyroxine 137 Mcg Tab PO 137 mcg DAILY@0600 LEYDI Administration Miscellaneous Information 1 each 10/26/24 21:12 Potassium Replacement Protocol 1 Each Misc MISCELLANE DAILY PRN Per Protocol Miscellaneous Information 1 each 10/26/24 21:12 Magnesium Replacement Protocol 1 Each Misc MISCELLANE DAILY PRN Per Protocol Protocol Naloxone HCl 0.2 mg 10/26/24 18:50 Naloxone 0.4 Mg/Ml 1 Ml Vial IV Q2M PRN Opioid Reversal Pantoprazole Sodium 40 mg 10/27/24 09:00 10/28/24 08:07 Pantoprazole 40 Mg/10 Ml Vial IVP 40 mg DAILY LEYDI Administration Objective - Vital Signs Vital signs: Vital Signs Temp 98.4 F 10/28/24 00:00 Pulse 77 10/28/24 08:00 Resp 14 10/28/24 08:00 BP 92/55 10/28/24 08:00 Pulse Ox 99 10/28/24 08:00 FiO2 50 10/28/24 08:53 Intake & Output 10/27/24 10/28/24 10/28/24 18:59 06:59 18:59 Intake Total 8211.461 5639.444 341.064 Output Total 1660 575 80 Balance -358.141 907.444 261.064 Weight 94.7 kg Intake: IV 1020 1020 170 0.9% @ KVO 120 120 20 Sodium Chloride 0.9% 1, 900 900 150 000 ml @ 75 mls/hr IV . [id number] LEYDI Rx#:[id number] Intake, IV Titration 191.859 202.444 81.064 Amount DOPamine DRIP 800 mg In 14.619 Dextrose/Water 1 250ml. bag @ 1 MCG/KG/MIN 1.776 mls/hr IV .Q24H LEYDI Rx#: [id number] Norepinephrine 8 mg In 17.699 37.800 Sodium Chloride 0.9% 250 ml @ 0.03 MCG/KG/MIN 5. 214 mls/hr IV .Q24H LEYDI Rx#:[id number] propofoL 1,000 mg In 159.541 164.644 81.064 Empty Bag 1 bag @ 15 MCG/ KG/MIN 7.552 mls/hr IV . [id number] LEYDI Rx#:[id number] Tube Feeding 60 200 60 Other 30 60 30 Output: Urine 1660 575 80 Other: Voiding Method Indwelling Catheter Indwelling Catheter - Exam GENERAL: The patient is intubated and sedated. HEENT: Pupils are round and equally reacting to light. EOMI. No scleral icterus. No conjunctival pallor. Normocephalic, atraumatic. No pharyngeal erythema. No thyromegaly. CARDIOVASCULAR: S1 and S2 present. No murmurs, rubs, or gallops. PULMONARY: Chest is clear to auscultation, no wheezing , no crackles. ABDOMEN: Soft, nontender, nondistended, normoactive bowel sounds. No palpable organomegaly. MUSCULOSKELETAL: No joint swelling or deformity. EXTREMITIES: No cyanosis, clubbing, or pedal edema. NEUROLOGICAL: Gross neurological examination did not reveal any focal deficits. SKIN: No rashes. no petechiae. - Labs CBC & Chem 7: 10/28/24 06:50 10/28/24 06:50 Labs: Abnormal Lab Results - Last 24 Hours (Table) 10/27/24 10/27/24 10/28/24 Range/Units 17:40 23:05 05:00 WBC (4.50-10.00) 10*3/uL MCV (80.0-97.0) fL Plt Count (140-440) 10*3/uL Immature Gran # (0.00-0.04) 10*3/uL Monocytes # (0.20-1.00) 10*3/uL Eosinophils # (0.04-0.35) 10*3/uL ABG pO2 154 H (83-108) mmHg ABG Total CO2 25 H (19-24) mmol/L ABG O2 Saturation 99.5 H (94-97) % Chloride (98-107) mmol/L Carbon Dioxide (22-30) mmol/L Glucose (74-99) mg/dL POC Glucose (mg/dL) 112 H 128 H (70-110) mg/dL Calcium (8.4-10.2) mg/dL 10/28/24 10/28/24 10/28/24 Range/Units 06:50 06:50 07:00 WBC 11.18 H (4.50-10.00) 10*3/uL MCV 97.4 H (80.0-97.0) fL Plt Count 112 L (140-440) 10*3/uL Immature Gran # 0.07 H (0.00-0.04) 10*3/uL Monocytes # 1.51 H (0.20-1.00) 10*3/uL Eosinophils # 0.40 H (0.04-0.35) 10*3/uL ABG pO2 (83-108) mmHg ABG Total CO2 (19-24) mmol/L ABG O2 Saturation (94-97) % Chloride 114 H (98-107) mmol/L Carbon Dioxide 21 L (22-30) mmol/L Glucose 116 H (74-99) mg/dL POC Glucose (mg/dL) 130 H (70-110) mg/dL Calcium 8.3 L (8.4-10.2) mg/dL Assessment and Plan Assessment: Found unresponsive on the ground Acute hypoxic hypercapnic respiratory failure requiring intubation Possible left lower lobe pneumonia sick sinus syndrome Chronic atrial fibrillation Right thigh hematoma Left hand/elbow abscess Possible fall Plan: Continue with antibiotic Unasyn Continue with normal saline Pulmonary/critical care team with help with vent management Cardio team on the case, patient probably will need permanent pacemaker, Continue with dopamine drip. Labs and medication were reviewed.. Continue same treatment. Continue with symptomatic treatment. Resume home medication. Monitor labs and vitals. DVT and GI prophylaxis. Further recommendations as per clinical course of the patient DVT prophylaxis: GI Prophylaxis: Pepcid PT/OT: Pending Prognosis is guarded
[2024-10-28 13:21] LABS: ABG HCO3 23 mmol/L (21-25); ABG PCO2 38 mmHg (35-45); ABG PH 7.40 (7.35-7.45); ABG PO2 90 mmHg (83-108); ABG TCO2 24 mmol/L (19-24); Allen Test Performed? Yes
--- NOTE | 2024-10-28 14:12 | P.PN ---
Subjective Progress Note Date: 10/28/24 This is a 84-year-old male patient, known history of chronic atrial fibrillation, known history of aortic valve disease and the patient has undergone a TAVR procedure through [facility] few years back. The patient has also previous history of hypertension, prostate cancer and the patient undergone prostatectomy and hypothyroidism. The patient was in a good state of health. The patient [place] and he was found to be facedown, unresponsive in a pool of vomit. The patient received back ventilation the patient was brought into the emergency department. The patient was unresponsive, unable to speak and he is GCS score was 9. He did have signs of an obvious trauma to his head with any obvious area of abrasion or hematoma in the left forehead. A c-collar on the neck was applied. Following that, the patient was intubated and placed on the mechanical ventilator. Workup was initiated. The patient was found to be in sinus bradycardia with an atrial fibrillation rhythm. His current heart rate is in the mid 50s. The patient was given his CBC that showed no significant abnormalities. Normal coagulation profile. Sodium was at 145, BUN was 28 with a creatinine of 1.26 and a lactic acid level was initially at 7.2 dropped down to 1.1 following IV fluids. Calcium level was at 9.5. Normal LFTs. Normal troponins. proBNP level was 2790. UA was showing +1 protein, 2 WBCs and urine drug screen was negative and alcohol level was less than less than 10. Initial chest x-ray showed mild cardiomegaly along with increased interstitial markings bilaterally. EKG was in a good location. Postintubation, the patient was placed on assist-control mode rate of 20, tidal volume of 450, FiO2 of 100% and PEEP of 5. Blood gas showed a pH of 7.32 with a PCO2 of 44 and PO2 of 236. CAT scan of the head and the cervical spine showed no evidence of any fractures. No acute process. Nonspecific white matter changes, acute left forehead soft tissue hematoma and no evidence of any cervical spine fracture at the patient has multilevel degenerative disc disease. The patient also had biapical interlobular septal thickening. X-ray of the pelvis showed no evidence of any osseous fractures. At this point in time, the patient is in the intensive care unit, sedated with propofol running at 50 mcg/kg/min. Hemodynamically stable. Producing adequate amount of urine output and the patient is currently on IV fluids at a rate of 100 cc an hour. The patient is also on IV cefazolin. Afebrile. Pupils are equal and reactive to light. The patient is withdrawing to deep painful stimulation. No facial asymmetry. On 10/27/2024, the patient is being seen for a follow-up. The patient remains on propofol running at 35 mcg/kg/min. The patient is assist-control mode of mechanical ventilation at rate of 20, tidal volume of 450, FiO2 60% with a PEEP of 5. The blood gas showed a pH of 7.48 with a KRC128 and PO2 of 87. Chest x- ray remains unchanged and is essentially clear. The patient remains in normal [place] rate of 75 cc an hour. No pressors. Remains atrial fibrillation. The patient continues to have episodes of bradycardia with a heart rate as low as 29 has been reported. His current heart rate is ranging between 45 and 55. He remains in atrial fibrillation. Blood pressure is soft. Recommend initiation of dopamine. Meanwhile, the patient was given reversal for Eliquis and the patient had an infusion of Balfaxar. He does have a hematoma measuring 10 x 4.4 cm in the medial aspect of the right side. The hemoglobin from today is at 13.6, essentially stable compared to yesterday. The white cell count of 7.9. Platelet count is at 101. BUN is 26 with a creatinine of 0.89 and sodium is at 141 and a potassium level is at 3.5. TSH level was 0.27. T3 level is 114. The CPK level was 33. Troponin I level was less than 0.01. Lactic acid level has normalized and is currently down to 1.1. On 10/20/2024, the patient is still sedated on propofol running at 30 mcg/kg/min. Remains on a mechanical ventilator. This morning, he is on assist-control mode at rate of 12, tidal volume of 450, FiO2 50% with a PEEP of 5. Blood gas showed a pH of 7.38 with a PCO2 of 41 and PO254. Chest x-ray shows development of a left sided airspace disease. The patient will be started empirically on IV antibiotics. Will start the patient IV Unasyn. Meanwhile, the patient remains in atrial fibrillation. Heart rate is improved without the patient being on dopamine which is currently running at 3 mcg/kg/min. Adequate urine output. B riefly, the patient was given norepinephrine overnight for a total of 5 hours and currently is off norepinephrine. EEG showing moderate to severe slowing without any seizure activity. The patient remains on vital HP at rate of 30 cc an hour. WBC count is at 11.8 with a hemoglobin 14.5 and a platelet count of 112. Sodium is 143, bicarb is at 21, potassium is at 4.2, BUN is 18 with a creatinine of 0.8. Sputum sample was sent on 10/26/2024 shows no significant microbial growth. The right thigh hematoma remains stable. Hemoglobin remained stable at 14.5. Patient is still being seen by trauma surgery. Objective - Vital Signs Vital signs: Vital Signs Temp 98.3 F 10/28/24 12:00 Pulse 82 10/28/24 13:30 Resp 25 H 10/28/24 13:30 BP 114/67 10/28/24 13:30 Pulse Ox 100 10/28/24 13:42 FiO2 50 10/28/24 13:30 Intake & Output 10/27/24 10/28/24 10/28/24 18:59 06:59 18:59 Intake Total 1108.976 5040.444 973.859 Output Total 1660 575 415 Balance -358.141 907.444 558.859 Weight 94.7 kg Intake: IV 1020 1020 595 0.9% @ KVO 120 120 70 Sodium Chloride 0.9% 1, 900 900 525 000 ml @ 75 mls/hr IV . [id number] [facility] Rx#:[id number] Intake, IV Titration 191.859 202.444 198.859 Amount DOPamine DRIP 800 mg In 14.619 105.208 Dextrose/Water 1 250ml. bag @ 1 MCG/KG/MIN 1.776 mls/hr IV .Q24H [facility] Rx#: [id number] Norepinephrine 8 mg In 17.699 37.800 Sodium Chloride 0.9% 250 ml @ 0.03 MCG/KG/MIN 5. 214 mls/hr IV .Q24H [facility] Rx#:[id number] propofoL 1,000 mg In 159.541 164.644 93.651 Empty Bag 1 bag @ 15 MCG/ KG/MIN 7.552 mls/hr IV . [id number] [facility] Rx#:[id number] Tube Feeding 60 200 150 Other 30 60 30 Output: Urine 1660 575 415 Other: Voiding Method Indwelling Catheter Indwelling Catheter Indwelling Catheter - Exam The patient skin abrasion over the left forehead in addition to an area of he matoma. Currently sedated with propofol. Intubated on mechanical ventilator. Orotracheal orogastric tube are both in place. Head exam is unremarkable. No scleral icterus or corneal arcus noted. Neck is without jugular venous distension, thyromegaly, or carotid bruits. Carotid upstrokes are brisk bilaterally. Wearing a wrist hard collar Lungs are clear to auscultation and percussion. Cardiac exam reveals the PMI to be normally sized and situated. Rhythm is irregular. First and second heart sounds normal. No murmurs, rubs or gallops. Abdominal exam reveals normal bowel sounds, no masses, no organomegaly and no aortic enlargement. Extremities are nonedematous and both femoral and pedal pulses are normal. Right thigh hematoma , left hand skin tear, left arm abrasion Examination of the skin revealed no evidence of significant rashes, suspicious appearing nevi or other concerning lesions. Neurologically, the patient is awake and alert and the patient does not have any focal neurological deficit. Cranial nerves are essentially intact. - Labs CBC & Chem 7: 10/28/24 06:50 10/28/24 06:50 Labs: Abnormal Lab Results - Last 24 Hours (Table) 10/27/24 10/27/24 10/28/24 Range/Units 17:40 23:05 05:00 WBC (4.50-10.00) 10*3/uL MCV (80.0-97.0) fL Plt Count (140-440) 10*3/uL Immature Gran # (0.00-0.04) 10*3/uL Monocytes # (0.20-1.00) 10*3/uL Eosinophils # (0.04-0.35) 10*3/uL ABG pO2 154 H (83-108) mmHg ABG Total CO2 25 H (19-24) mmol/L ABG O2 Saturation 99.5 H (94-97) % Chloride (98-107) mmol/L Carbon Dioxide (22-30) mmol/L Glucose (74-99) mg/dL POC Glucose (mg/dL) 112 H 128 H (70-110) mg/dL Calcium (8.4-10.2) mg/dL 10/28/24 10/28/24 10/28/24 Range/Units 06:50 06:50 07:00 WBC 11.18 H (4.50-10.00) 10*3/uL MCV 97.4 H (80.0-97.0) fL Plt Count 112 L (140-440) 10*3/uL Immature Gran # 0.07 H (0.00-0.04) 10*3/uL Monocytes # 1.51 H (0.20-1.00) 10*3/uL Eosinophils # 0.40 H (0.04-0.35) 10*3/uL ABG pO2 (83-108) mmHg ABG Total CO2 (19-24) mmol/L ABG O2 Saturation (94-97) % Chloride 114 H (98-107) mmol/L Carbon Dioxide 21 L (22-30) mmol/L Glucose 116 H (74-99) mg/dL POC Glucose (mg/dL) 130 H (70-110) mg/dL Calcium 8.3 L (8.4-10.2) mg/dL 10/28/24 Range/Units 13:18 WBC (4.50-10.00) 10*3/uL MCV (80.0-97.0) fL Plt Count (140-440) 10*3/uL Immature Gran # (0.00-0.04) 10*3/uL Monocytes # (0.20-1.00) 10*3/uL Eosinophils # (0.04-0.35) 10*3/uL ABG pO2 (83-108) mmHg ABG Total CO2 (19-24) mmol/L ABG O2 Saturation 97.7 H (94-97) % Chloride (98-107) mmol/L Carbon Dioxide (22-30) mmol/L Glucose (74-99) mg/dL POC Glucose (mg/dL) (70-110) mg/dL Calcium (8.4-10.2) mg/dL Microbiology - Last 24 Hours (Table) 10/26/24 17:20 Gram Stain - Preliminary Sputum Assessment and Plan Plan: Acute loss in consciousness, likely cardiogenic in nature, currently under investigation. The patient is hemodynamically stable. Cardiac rhythm is atrial fibrillation with some underlying bradycardia. No acute ST segment elevation. Troponins are negative. The patient is known to have valvular heart disease with a previous TAVR. Currently intubated on the mechanical ventilator. No pressors. CAT scan of the brain shows no acute abnormalities and the patient has a hematoma over the left forehead along with skin abrasions. The patient remains intubated on mechanical ventilator, remains sedated with propofol. Acute unresponsiveness, under investigation, CAT scan of the brain shows no acute abnormalities. EEG was noted. No evidence of any seizure activity. There is moderate encephalopathy and diffuse slowing. Rule out development of a left lower lobe pulmonary infiltrate. Acute respiratory failure, hypoxic/hypercapnic in nature, currently intubated on mechanical ventilator. Oxygenation is stable on the ventilation is adequate at this point, please refer to the most send blood gases. Acute lactic acidosis, improved and the lactic acid level is normalized Chronic A-fib with significant bradycardia, currently off beta-blockers. Thyroid function tests are essentially within normal limits, the patient is currently off beta-blockers and the patient is currently on dopamine running at 3 mcg/kg/min. RIght thigh hematoma, measuring 10 x 4 cm in size, hemoglobin remained stable and the patient was given Balfaxar and Eliquis was reversed. Skin abrasions related to fall, left hand, elbow and forehead History of valvular heart disease/aortic valve disease with a previous TAVR History of prostate cancer with previous prostatectomy Hypothyroidism Questionable dementia maintained on Aricept Plan Continue vent support and will reduce the FiO2 down to 40% Continue normal saline at rate of 75 cc an hour Monitor the cardiac rhythm. Continue dopamine as the patient's bradycardia responded nicely to dopamine and this is running at 3 mcg/kg/min. No need for norepinephrine at this point Echocardiogram is pending Hold beta-blockers for now Hold anticoagulation with Eliquis and the patient was given Balfaxar for reversal of anticoagulant effect Triple antibiotic coverage appointment for skin abrasions Continue Synthroid Cardiology consultation Give the patient a sedation holiday, assess readiness to wean, check weaning parameters and give the patient spontaneous breathing trial Based on his weaning trial and parameters, we will decide if the patient is candidate for a spontaneous breathing trial and possible extubation. Start the patient IV Unasyn as empiric antibiotic coverage. Consult cardiology is appreciated Consults trauma surgery is appreciated Will continue to follow Critical care evaluation that was done and 35 minutes. Time with Patient: Greater than 30
--- NOTE | 2024-10-28 16:25 | P.PN ---
Subjective Progress Note Date: 10/28/24 Patient is asleep at this time. He was extubated today at 1:39 PM. Per nursing report, he woke up, was following commands. When he woke up, he asked what happened and family told him. He has received pain medication, therefore asleep at this time. Objective - Vital Signs Vital signs: Vital Signs Temp 98.3 F 10/28/24 12:00 Pulse 82 10/28/24 15:00 Resp 17 10/28/24 15:00 BP 115/63 10/28/24 15:00 Pulse Ox 98 10/28/24 15:00 FiO2 50 10/28/24 13:30 Intake & Output 10/27/24 10/28/24 10/28/24 18:59 06:59 18:59 Intake Total 1277.751 5176.444 1261.886 Output Total 1660 575 555 Balance -358.141 907.444 706.886 Weight 94.7 kg Intake: IV 1020 1020 850 0.9% @ KVO 120 120 100 Sodium Chloride 0.9% 1, 900 900 750 000 ml @ 75 mls/hr IV . [id number] [facility] Rx#:[id number] Intake, IV Titration 191.859 202.444 231.886 Amount DOPamine DRIP 800 mg In 14.619 138.235 Dextrose/Water 1 250ml. bag @ 1 MCG/KG/MIN 1.776 mls/hr IV .Q24H [facility] Rx#: [id number] Norepinephrine 8 mg In 17.699 37.800 Sodium Chloride 0.9% 250 ml @ 0.03 MCG/KG/MIN 5. 214 mls/hr IV .Q24H [facility] Rx#:[id number] propofoL 1,000 mg In 159.541 164.644 93.651 Empty Bag 1 bag @ 15 MCG/ KG/MIN 7.552 mls/hr IV . [id number] [facility] Rx#:[id number] Tube Feeding 60 200 150 Other 30 60 30 Output: Urine 1660 575 555 Other: Voiding Method Indwelling Catheter Indwelling Catheter Indwelling Catheter - Exam As above. - Labs CBC & Chem 7: 10/28/24 06:50 10/28/24 06:50 Labs: Abnormal Lab Results - Last 24 Hours (Table) 10/27/24 10/27/24 10/28/24 Range/Units 17:40 23:05 05:00 WBC (4.50-10.00) 10*3/uL MCV (80.0-97.0) fL Plt Count (140-440) 10*3/uL Immature Gran # (0.00-0.04) 10*3/uL Monocytes # (0.20-1.00) 10*3/uL Eosinophils # (0.04-0.35) 10*3/uL ABG pO2 154 H (83-108) mmHg ABG Total CO2 25 H (19-24) mmol/L ABG O2 Saturation 99.5 H (94-97) % Chloride (98-107) mmol/L Carbon Dioxide (22-30) mmol/L Glucose (74-99) mg/dL POC Glucose (mg/dL) 112 H 128 H (70-110) mg/dL Calcium (8.4-10.2) mg/dL 10/28/24 10/28/24 10/28/24 Range/Units 06:50 06:50 07:00 WBC 11.18 H (4.50-10.00) 10*3/uL MCV 97.4 H (80.0-97.0) fL Plt Count 112 L (140-440) 10*3/uL Immature Gran # 0.07 H (0.00-0.04) 10*3/uL Monocytes # 1.51 H (0.20-1.00) 10*3/uL Eosinophils # 0.40 H (0.04-0.35) 10*3/uL ABG pO2 (83-108) mmHg ABG Total CO2 (19-24) mmol/L ABG O2 Saturation (94-97) % Chloride 114 H (98-107) mmol/L Carbon Dioxide 21 L (22-30) mmol/L Glucose 116 H (74-99) mg/dL POC Glucose (mg/dL) 130 H (70-110) mg/dL Calcium 8.3 L (8.4-10.2) mg/dL 10/28/24 Range/Units 13:18 WBC (4.50-10.00) 10*3/uL MCV (80.0-97.0) fL Plt Count (140-440) 10*3/uL Immature Gran # (0.00-0.04) 10*3/uL Monocytes # (0.20-1.00) 10*3/uL Eosinophils # (0.04-0.35) 10*3/uL ABG pO2 (83-108) mmHg ABG Total CO2 (19-24) mmol/L ABG O2 Saturation 97.7 H (94-97) % Chloride (98-107) mmol/L Carbon Dioxide (22-30) mmol/L Glucose (74-99) mg/dL POC Glucose (mg/dL) (70-110) mg/dL Calcium (8.4-10.2) mg/dL Microbiology - Last 24 Hours (Table) 10/26/24 17:20 Gram Stain - Preliminary Sputum Sputum Culture - Preliminary Assessment and Plan Assessment: Acute loss of consciousness and subsequent unresponsiveness. Unclear cause. Rule out cardiac arrhythmia. Patient is running low heart rate. Limited examination is nonfocal. Acute respiratory failure, status post extubation 10/28/2024 Acute lactic acidosis Chronic atrial fibrillation with low ventricular rate. Patient on Eliquis. Right thigh hematoma getting worse. Patient was given Balfaxar to reverse Megan rajeev. Skin abrasion related to fall, left hand, elbow and forehead History of TAVR History of prostate cancer with previous prostatectomy Hypothyroidism Plan: * Patient is doing better. He is extubated. * EEG was abnormal due to background slowing of moderate to severe degree. Some triphasic waves were seen, which is also consistent with metabolic encephal opathy. * Patient's ammonia is slightly elevated. Consider lactulose. Rule out chronic liver disease. * Patient has atrial fibrillation, but Eliquis has been reversed because of right thigh hematoma. Patient at risk for cardiac event. * Patient is extubated. Per nursing report, he is following directions. At present asleep, therefore did not wake him up. * Neurology will follow clinically. Discussed with patient's nurse in detail.
[2024-10-28 17:29] LABS: Glucose,Whole Blood 105 mg/dL (70-110)
[2024-10-29 01:18] LABS: Glucose,Whole Blood 91 mg/dL (70-110)
[2024-10-29] MEDS: HYDROcodone/APAP 5-325MG 1 EACH TAB PO PRN (05:49)
[2024-10-29 06:46] LABS: Basophils # (A) 0.03 10*3/uL (0.00-0.10); Basophils % (A) 0.3 %; Eosinophils # (A) 0.24 10*3/uL (0.04-0.35); Eosinophils % (A) 2.4 %; HCT 39.7 % (39.6-50.0); HGB 12.5 g/dL (13.0-17.0); Immature Platelet Fraction 3.4 % (1.1-6.1); Lymphocytes # (A) 0.78 10*3/uL (0.90-5.00); Lymphocytes % (A) 7.9 %; MCH 30.7 pg (27.0-32.0); MCHC 31.5 g/dL (32.0-37.0); MCV 97.5 fL (80.0-97.0); Monocytes # (A) 1.19 10*3/uL (0.20-1.00); Monocytes % (A) 12.0 %; Neutrophils # (A) 7.60 10*3/uL (1.80-7.70); Neutrophils % (A) 76.8 %; Platelet Count 103 10*3/uL (140-440); RBC 4.07 10*6/uL (4.40-5.60); RDW 15.2 % (11.5-14.5); WBC 9.90 10*3/uL (4.50-10.00)
--- NOTE | 2024-10-29 06:59 | XR ---
EXAMINATION TYPE: XR chest 1V portable DATE OF EXAM: 10/29/2024 5:14 AM COMPARISON: Chest radiograph from one day prior. CLINICAL INDICATION: Male, 84 years old with history of Tube placement; [facility] TECHNIQUE: XR chest 1V portable Frontal view of the chest. FINDINGS: Lungs/Pleura: Left lower lung airspace opacities No evidence of focal consolidation or pneumothorax. Blunting of the costophrenic angles is present. Pulmonary vascularity: Unremarkable. Heart/mediastinum: Cardiomediastinal silhouette is unremarkable. Post aortic valve repair changes. Musculoskeletal: No acute osseous pathology. Other findings: None Lines/Tubes: Interval removal of the endotracheal tube. Interval removal of the enteric tube, IMPRESSION: Cardiomegaly, pulmonary vascular congestion and bilateral pleural effusions. Correlate with BNP for c ongestive heart failure. [facility] Elsa Zambrano, , 10/29/2024 6:57 AM
[2024-10-29 07:01] LABS: African American GFR (CKD) >90 (>60 ml/min/1.73 sqM); Anion Gap 9 mmol/L; Blood Urea Nitrogen 16 mg/dL (9-20); Calcium 7.9 mg/dL (8.4-10.2); Carbon Dioxide 20 mmol/L (22-30); Chloride 114 mmol/L (98-107); Glucose 111 mg/dL (74-99); Non-African American GFR(CKD) 82 (>60 ml/min/1.73 sqM); Potassium 4.3 mmol/L (3.5-5.1); Sodium 143 mmol/L (137-145)
--- NOTE | 2024-10-29 10:09 | P.PN ---
Subjective Progress Note Date: 10/29/24 The patient is an 84-year-old male who presented to the hospital after mechanical fall. Patient was found down at home with scalp laceration. Cardiology has been consulted for bradycardia. Heart rate was in the 30s upon arrival to the emergency room and he had frequent episodes of 5 to 6-second pauses. Patient had been started on dopamine drip with significant improvement in his heart rate. In the last 24 hours the patient has been extubated. Patient is up sitting in the recliner chair. He has no recollection of his events that brought him into the emergency room. He believes he followed in the office with Dr. YONAS Keane. Denies any current chest pain. No difficulty breathing. GENERAL: Well-appearing, well-nourished and in no acute distress. Patient is sedated on ventilator. NECK: Supple without JVD or thyromegaly. LUNGS: Breath sounds diminished to auscultation bilaterally. Respiration equal and unlabored. No wheezes, rales or rhonchi. HEART: Heart rate irregular. Soft systolic murmur. No rubs or gallops EXTREMITIES: +1 bilateral lower extremity edema. Palpable pulses. TELEMETRY: Atrial fibrillation with heart rates in the mid 70s IMPRESSION: Mechanical fall Persistent atrial fibrillation, on anticoagulation Sick sinus syndrome Pulmonary edema Hypothyroidism, suppressed TSH PLAN: Start hyoscyamine twice daily Wean off of dopamine drip If patient has any further episodes of bradycardia after 48 hours, proceed with permanent pacemaker implantation Further recommendations to be based upon clinical course I am dictating on behalf of Dr Yanick Wyatt's history/physical and assessment/plan. Objective - Vital Signs Vital signs: Vital Signs Temp 98.8 F 10/29/24 04:00 Pulse 84 10/29/24 07:00 Resp 18 10/29/24 07:00 BP 113/68 10/29/24 07:00 Pulse Ox 97 10/29/24 07:00 FiO2 3 10/29/24 04:00 Intake & Output 10/28/24 10/29/24 10/29/24 18:59 06:59 18:59 Intake Total 5329.177 0274.338 85 Output Total 735 650 30 Balance 781.886 432.338 55 Intake: IV 1105 1020 85 0.9% @ KVO 130 120 10 Sodium Chloride 0.9% 1, 975 900 75 000 ml @ 75 mls/hr IV . [id number] [facility] Rx#:[id number] Intake, IV Titration 231.886 62.338 Amount DOPamine DRIP 800 mg In 138.235 62.338 Dextrose/Water 1 250ml. bag @ 1 MCG/KG/MIN 1.776 mls/hr IV .Q24H [facility] Rx#: [id number] propofoL 1,000 mg In 93.651 Empty Bag 1 bag @ 15 MCG/ KG/MIN 7.552 mls/hr IV . [id number] [facility] Rx#:[id number] Tube Feeding 150 Other 30 Output: Urine 735 650 30 Other: Voiding Method Indwelling Catheter Indwelling Catheter - Labs CBC & Chem 7: 10/29/24 06:00 10/29/24 06:00 Labs: Abnormal Lab Results - Last 24 Hours (Table) 10/28/24 10/29/24 10/29/24 Range/Units 13:18 06:00 06:00 RBC 4.07 L (4.40-5.60) 10*6/uL Hgb 12.5 L (13.0-17.0) g/dL MCV 97.5 H (80.0-97.0) fL MCHC 31.5 L (32.0-37.0) g/dL Plt Count 103 L (140-440) 10*3/uL Immature Gran # 0.06 H (0.00-0.04) 10*3/uL Lymphocytes # 0.78 L (0.90-5.00) 10*3/uL Monocytes # 1.19 H (0.20-1.00) 10*3/uL ABG O2 Saturation 97.7 H (94-97) % Chloride 114 H (98-107) mmol/L Carbon Dioxide 20 L (22-30) mmol/L Glucose 111 H (74-99) mg/dL Calcium 7.9 L (8.4-10.2) mg/dL Microbiology - Last 24 Hours (Table) 10/26/24 17:20 Gram Stain - Preliminary Sputum Sputum Culture - Preliminary
--- NOTE | 2024-10-29 10:21 | P.CNOR ---
History of Present Illness - [facility] Consult date: 10/29/24 History of present illness: Patient is a very pleasant 84-year-old male with multiple medical problems who is presently admitted in the ICU after being found down after a fall walking his dog. The patient states that he fell several days ago and was down for an unknown amount of time. He was brought to the hospital and is presently ad mitted in the ICU. Patient has a large hematoma and swelling over the right knee so a CT scan was obtained yesterday. It showed a large hematoma so orthopedics was consulted to rule out any type of structural injury. This morning the patient is complaining of pain in his right knee, shoulder, and elbow. He has no other complaints. Past Medical History Past Medical History: Atrial Fibrillation, Hypertension, Sleep Apnea/CPAP/BIPAP Additional Past Medical History / Comment(s): Previous TAVR for Aortic valve disease History of Any Multi-Drug Resistant Organisms: None Reported Past Surgical History: Cardiac Valve Replacement, Heart Catheterization, Prostate Surgery Additional Past Surgical History / Comment(s): TAVR in 2021 Past Anesthesia/Blood Transfusion Reactions: No Reported Reaction Past Psychological History: Anxiety Smoking Status: Former smoker Past Alcohol Use History: None Reported Additional Past Alcohol Use History / Comment(s): QUIT SO YEARS AGO. 2 PACKS A DAY X 10 YEARS Past Drug Use History: None Reported - Past Family History Mother Family Medical History: Hypertension Medications and Allergies Home Medications Medication Instructions Recorded Confirmed Type Apixaban [Eliquis] 5 mg PO BID 02/16/24 10/26/24 History Metoprolol Tartrate 25 mg PO BID 02/16/24 10/26/24 History Vibegron [Gemtesa] 75 mg PO DAILY 02/16/24 10/26/24 History Donepezil [Aricept] 10 mg PO HS 10/26/24 10/26/24 History Levothyroxine Sodium [Synthroid] 137 mcg PO DAILY 10/26/24 10/26/24 History Allergies Allergy/AdvReac Type Severity Reaction Status Date / Time Iodinated Contrast Media AdvReac Chest Pain Verified 10/26/24 17:03 tetanus immune globulin AdvReac Chest Pain Verified 10/26/24 17:03 Physical Examination Is sitting up at bedside eating his breakfast. He has multiple abrasions over his face. His head is otherwise normocephalic and atraumatic. The right upper extremity has diffuse swelling and resolving ecchymosis. There is tenderness over the shoulder and elbow. The arm and forearm are soft. The left upper extremity is without deformities. A focused exam of the right lower extremity adducted. On inspection there is diffuse swelling, ecchymosis and blisters over the distal medial thigh. There is swelling and a hematoma but the thigh and calf are compressible and soft. There is no pain with passive range of motion of the hip. There is some pain with passive range of motion of the knee. Results CT scan of the right leg shows a large subcutaneous hematoma but no obvious fractures or structural lesions. - Labs Labs: Abnormal Lab Results - Last 24 Hours (Table) 10/28/24 10/29/24 10/29/24 Range/Units 13:18 06:00 06:00 RBC 4.07 L (4.40-5.60) 10*6/uL Hgb 12.5 L (13.0-17.0) g/dL MCV 97.5 H (80.0-97.0) fL MCHC 31.5 L (32.0-37.0) g/dL Plt Count 103 L (140-440) 10*3/uL Immature Gran # 0.06 H (0.00-0.04) 10*3/uL Lymphocytes # 0.78 L (0.90-5.00) 10*3/uL Monocytes # 1.19 H (0.20-1.00) 10*3/uL ABG O2 Saturation 97.7 H (94-97) % Chloride 114 H (98-107) mmol/L Carbon Dioxide 20 L (22-30) mmol/L Glucose 111 H (74-99) mg/dL Calcium 7.9 L (8.4-10.2) mg/dL Microbiology - Last 24 Hours (Table) 10/26/24 17:20 Gram Stain - Final Sputum Sputum Culture - Final H & H 10/26/24 10/26/24 10/27/24 Range/Units 16:32 23:06 04:35 Hgb 16.0 14.0 13.6 (13.0-17.0) g/dL Hct 50.4 H 42.6 42.7 (39.6-50.0) % 10/28/24 10/29/24 Range/Units 06:50 06:00 Hgb 14.5 12.5 L (13.0-17.0) g/dL Hct 45.3 39.7 (39.6-50.0) % Coagulation 10/26/24 Range/Units 16:32 INR 1.1 (<1.2) Result Diagrams: 10/29/24 06:00 10/29/24 06:00 Assessment and Plan Assessment: Right distal thigh hematoma, no obvious structural injuries or fractures Right shoulder and elbow pain Plan: I would recommend nonoperative treatment of the right thigh hematoma with compression and ice as needed. We obtain x-rays of the patient's right shoulder and elbow to rule out his fall.
--- NOTE | 2024-10-29 10:26 | P.PN ---
Subjective Progress Note Date: 10/29/24 CHIEF COMPLAINT: Level 1 trauma, found down HISTORY OF PRESENT ILLNESS: The patient is a 80-year-old male admitted after being found down and unresponsive as a level 1 trauma. Patient admitted to the ICU. He has been extubated. He is sitting up in a chair at bedside tolerating clear liquid diet. Denies any troubles with swallowing. He has no recollection of his events leading to his fall. He is complaining of tilted vision. Neurology assessment still in progress. ROS: No reports of nausea and vomiting. No shortness of breath. No fevers or chills. PHYSICAL EXAM: VITAL SIGNS: Reviewed CONSTITUTIONAL: Well developed and in no acute distress. EYES: Conjuctivae without sclera icterus. Extraocular movements grossly intact. HEAD, EARS, NOSE, THROAT: Moist buccal mucosa. Head is atraumatic, normocephalic. Hears conversational speech. No nasal drainage. Has ecchymosis and dried blood along the left forehead. RESPIRATORY: Non-labored respirations and equal bilateral excursions. CARDIOVASCULAR: Palpable 2+ radial pulses. ABDOMEN: Nontender. MUSCULOSKELETAL: No clubbing cyanosis. Right medial knee hematoma, decreased in size. SKIN: Good skin turgor. Well perfused. NEUROLOGIC: Cranial nerves II through XII grossly intact. No focal or lateralizing signs. PSYCH: Appropriate affect. Alert and oriented to person LABS: White blood cell count normal. Hemoglobin 12.5. ASSESSMENT: 1. Loss of consciousness status post fall ground-level 2. History of blood thinner use 3. History of valvular replacement 4. Frontal hematoma PLAN: 1. Will advance diet to heart healthy diet as he denies any dysphagia. 2. I personally spoke to orthopedic provider regarding hematoma and no surgical invention deemed necessary. 3. Patient cleared from a trauma surgical standpoint for transfer to the floor Dictation was produced using [employer] dictation software. Please excuse any grammatical, word or spelling errors. Objective - Vital Signs Vital signs: Vital Signs Temp 98.8 F 10/29/24 04:00 Pulse 84 10/29/24 07:00 Resp 18 10/29/24 07:00 BP 113/68 10/29/24 07:00 Pulse Ox 97 10/29/24 07:00 FiO2 3 10/29/24 04:00 Intake & Output 10/28/24 10/29/24 10/29/24 18:59 06:59 18:59 Intake Total 2326.588 6691.338 85 Output Total 735 650 30 Balance 781.886 432.338 55 Intake: IV 1105 1020 85 0.9% @ KVO 130 120 10 Sodium Chloride 0.9% 1, 975 900 75 000 ml @ 75 mls/hr IV . [id number] [facility] Rx#:[id number] Intake, IV Titration 231.886 62.338 Amount DOPamine DRIP 800 mg In 138.235 62.338 Dextrose/Water 1 250ml. bag @ 1 MCG/KG/MIN 1.776 mls/hr IV .Q24H [facility] Rx#: [id number] propofoL 1,000 mg In 93.651 Empty Bag 1 bag @ 15 MCG/ KG/MIN 7.552 mls/hr IV . [id number] [facility] Rx#:[id number] Tube Feeding 150 Other 30 Output: Urine 735 650 30 Other: Voiding Method Indwelling Catheter Indwelling Catheter - Labs CBC & Chem 7: 10/29/24 06:00 10/29/24 06:00 Labs: Abnormal Lab Results - Last 24 Hours (Table) 10/28/24 10/29/24 10/29/24 Range/Units 13:18 06:00 06:00 RBC 4.07 L (4.40-5.60) 10*6/uL Hgb 12.5 L (13.0-17.0) g/dL MCV 97.5 H (80.0-97.0) fL MCHC 31.5 L (32.0-37.0) g/dL Plt Count 103 L (140-440) 10*3/uL Immature Gran # 0.06 H (0.00-0.04) 10*3/uL Lymphocytes # 0.78 L (0.90-5.00) 10*3/uL Monocytes # 1.19 H (0.20-1.00) 10*3/uL ABG O2 Saturation 97.7 H (94-97) % Chloride 114 H (98-107) mmol/L Carbon Dioxide 20 L (22-30) mmol/L Glucose 111 H (74-99) mg/dL Calcium 7.9 L (8.4-10.2) mg/dL Microbiology - Last 24 Hours (Table) 10/26/24 17:20 Gram Stain - Final Sputum Sputum Culture - Final
[2024-10-29] MEDS: FUROSEMIDE 10 MG/ML 4 ML VIAL IV STA (11:09)
--- NOTE | 2024-10-29 11:30 | XR ---
EXAMINATION TYPE: XR shoulder complete RT, XR elbow complete RT DATE OF EXAM: 10/29/2024 11:19 AM COMPARISON: None CLINICAL INDICATION: Male, 84 years old with history of pain/fall; PHH, pain TECHNIQUE: XR shoulder complete RT, XR elbow complete RT; examined in AP, internally rotated and scap ular Y projections. Frontal and lateral views of the elbow FINDINGS: No evidence of acute osseous pathology, joint dislocation, or soft tissue swelling. The remaining po rtions of the visualized chest are unremarkable. Degeneration changes of the acromion, distal clavic le with osteophyte formation. There is osteophyte formation of the glenoid and humeral head. There is joint space narrowing of glenohumeral joint. IV cannula with abrupt angulation near its insertion. IMPRESSION: 1. No acute osseous pathology. 2. Mild shoulder osteoarthrosis. 3. IV cannula is kinked in the skin. Correlate for malfunction. [facility], , 10/29/2024 11:28 AM
[2024-10-29] MEDS: HYOSCYAMINE SULFATE 0.375 MG TAB.ER.12H PO SCH (12:15)
--- NOTE | 2024-10-29 15:48 | P.PN ---
Subjective Progress Note Date: 10/29/24 This is a 84-year-old male patient, known history of chronic atrial fibrillation, known history of aortic valve disease and the patient has undergone a TAVR procedure through [facility] few years back. The patient has also previous history of hypertension, prostate cancer and the patient undergone prostatectomy and hypothyroidism. The patient was in a good state of health. The patient [place] and he was found to be facedown, unresponsive in a pool of vomit. The patient received back ventilation the patient was brought into the emergency department. The patient was unresponsive, unable to speak and he is GCS score was 9. He did have signs of an obvious trauma to his head with any obvious area of abrasion or hematoma in the left forehead. A c-collar on the neck was applied. Following that, the patient was intubated and placed on the mechanical ventilator. Workup was initiated. The patient was found to be in sinus bradycardia with an atrial fibrillation rhythm. His current heart rate is in the mid 50s. The patient was given his CBC that showed no significant abnormalities. Normal coagulation profile. Sodium was at 145, BUN was 28 with a creatinine of 1.26 and a lactic acid level was initially at 7.2 dropped down to 1.1 following IV fluids. Calcium level was at 9.5. Normal LFTs. Normal troponins. proBNP level was 2790. UA was showing +1 protein, 2 WBCs and urine drug screen was negative and alcohol level was less than less than 10. Initial chest x-ray showed mild cardiomegaly along with increased interstitial markings bilaterally. EKG was in a good location. Postintubation, the patient was placed on assist-control mode rate of 20, tidal volume of 450, FiO2 of 100% and PEEP of 5. Blood gas showed a pH of 7.32 with a PCO2 of 44 and PO2 of 236. CAT scan of the head and the cervical spine showed no evidence of any fractures. No acute process. Nonspecific white matter changes, acute left forehead soft tissue hematoma and no evidence of any cervical spine fracture at the patient has multilevel degenerative disc disease. The patient also had biapical interlobular septal thickening. X-ray of the pelvis showed no evidence of any osseous fractures. At this point in time, the patient is in the intensive care unit, sedated with propofol running at 50 mcg/kg/min. Hemodynamically stable. Producing adequate amount of urine output and the patient is currently on IV fluids at a rate of 100 cc an hour. The patient is also on IV cefazolin. Afebrile. Pupils are equal and reactive to light. The patient is withdrawing to deep painful stimulation. No facial asymmetry. On 10/27/2024, the patient is being seen for a follow-up. The patient remains on propofol running at 35 mcg/kg/min. The patient is assist-control mode of mechanical ventilation at rate of 20, tidal volume of 450, FiO2 60% with a PEEP of 5. The blood gas showed a pH of 7.48 with a NDL558 and PO2 of 87. Chest x- ray remains unchanged and is essentially clear. The patient remains in normal Saint rate of 75 cc an hour. No pressors. Remains atrial fibrillation. The patient continues to have episodes of bradycardia with a heart rate as low as 29 has been reported. His current heart rate is ranging between 45 and 55. He remains in atrial fibrillation. Blood pressure is soft. Recommend initiation of dopamine. Meanwhile, the patient was given reversal for Eliquis and the patient had an infusion of Balfaxar. He does have a hematoma measuring 10 x 4.4 cm in the medial aspect of the right side. The hemoglobin from today is at 13.6, essentially stable compared to yesterday. The white cell count of 7.9. Platelet count is at 101. BUN is 26 with a creatinine of 0.89 and sodium is at 141 and a potassium level is at 3.5. TSH level was 0.27. T3 level is 114. The CPK level was 33. Troponin I level was less than 0.01. Lactic acid level has normalized and is currently down to 1.1. On 10/20/2024, the patient is still sedated on propofol running at 30 mcg/kg/min. Remains on a mechanical ventilator. This morning, he is on assist-control mode at rate of 12, tidal volume of 450, FiO2 50% with a PEEP of 5. Blood gas showed a pH of 7.38 with a PCO2 of 41 and PO254. Chest x-ray shows development of a left sided airspace disease. The patient will be started empirically on IV antibiotics. Will start the patient IV Unasyn. Meanwhile, the patient remains in atrial fibrillation. Heart rate is improved without the patient being on dopamine which is currently running at 3 mcg/kg/min. Adequate urine output. B riefly, the patient was given norepinephrine overnight for a total of 5 hours and currently is off norepinephrine. EEG showing moderate to severe slowing without any seizure activity. The patient remains on vital HP at rate of 30 cc an hour. WBC count is at 11.8 with a hemoglobin 14.5 and a platelet count of 112. Sodium is 143, bicarb is at 21, potassium is at 4.2, BUN is 18 with a creatinine of 0.8. Sputum sample was sent on 10/26/2024 shows no significant microbial growth. The right thigh hematoma remains stable. Hemoglobin remained stable at 14.5. Patient is still being seen by trauma surgery. On 10/29/2024, the patient has awake and alert and the patient is currently on 3 L of oxygen by nasal cannula. The patient was weaned off the mechanical ventilator and the patient was extubated on 10/28/2024 and the patient is currently on 3 L of oxygen by nasal cannula. The patient is not having any major respiratory difficulties. His condition is stable. Remains on dopamine which is running at 1.5 mcg/kg/min and the patient is not having any significant bradycardia arrhythmias. Remains in atrial fibrillation. Remains in normal Saint rate of 75 cc an hour. Awake and alert and communicating. Remains on IV Unasyn. Meanwhile, a repeat chest x-ray was done today and the patient was found to have cardiomegaly and mild pulm vascular congestion and small pleural effusions. Based on that, IV fluids will be cut down. X-ray of the shoulder was also done that showed no evidence of any fracture. X-ray of the elbow showed no evidence of any fractures. The white cell count at 9.9, he was 4.5 and a platelet count of 103. Sodium is at 143, BUN 16 with a creatinine of 0.7. Serum bicarb is at 20. No other significant events over the past 24 hours specially postextubation. The hematoma in the right thigh remains unchanged. There is some blister forming over the skin at the site of the hematoma. General surgery is on the case. Orthopedic surgery is also on the case. Hemoglobin remained stable. Objective - Vital Signs Vital signs: Vital Signs Temp 98.8 F 10/29/24 04:00 Pulse 84 10/29/24 07:00 Resp 18 10/29/24 07:00 BP 113/68 10/29/24 07:00 Pulse Ox 97 10/29/24 07:00 FiO2 3 10/29/24 04:00 Intake & Output 10/28/24 10/29/24 10/29/24 18:59 06:59 18:59 Intake Total 7949.853 8366.338 85 Output Total 735 650 30 Balance 781.886 432.338 55 Intake: IV 1105 1020 85 0.9% @ KVO 130 120 10 Sodium Chloride 0.9% 1, 975 900 75 000 ml @ 75 mls/hr IV . [id number] [facility] Rx#:[id number] Intake, IV Titration 231.886 62.338 Amount DOPamine DRIP 800 mg In 138.235 62.338 Dextrose/Water 1 250ml. bag @ 1 MCG/KG/MIN 1.776 mls/hr IV .Q24H [facility] Rx#: [id number] propofoL 1,000 mg In 93.651 Empty Bag 1 bag @ 15 MCG/ KG/MIN 7.552 mls/hr IV . [id number] [facility] Rx#:[id number] Tube Feeding 150 Other 30 Output: Urine 735 650 30 Other: Voiding Method Indwelling Catheter Indwelling Catheter - Exam The patient skin abrasion over the left forehead in addition to an area of hematoma. The patient is currently on 3 L of oxygen by nasal cannula. Sitting up in a chair., Comfortable and communicating. Head exam is unremarkable. No scleral icterus or corneal arcus noted. Neck is without jugular venous distension, thyromegaly, or carotid bruits. Carotid upstrokes are brisk bilaterally. Lungs are clear to auscultation and percussion. Cardiac exam reveals the PMI to be normally sized and situated. Rhythm is irregular. First and second heart sounds normal. No murmurs, rubs or gallops. Abdominal exam reveals normal bowel sounds, no masses, no organomegaly and no aortic enlargement. Extremities are nonedematous and both femoral and pedal pulses are normal. Right thigh hematoma , left hand skin tear, left arm abrasion Examination of the skin revealed no evidence of significant rashes, suspicious appearing nevi or other concerning lesions. Neurologically, the patient is awake and alert and the patient does not have any focal neurological deficit. Cranial nerves are essentially intact. - Labs CBC & Chem 7: 10/29/24 06:00 10/29/24 06:00 Labs: Abnormal Lab Results - Last 24 Hours (Table) 10/28/24 10/29/24 10/29/24 Range/Units 13:18 06:00 06:00 RBC 4.07 L (4.40-5.60) 10*6/uL Hgb 12.5 L (13.0-17.0) g/dL MCV 97.5 H (80.0-97.0) fL MCHC 31.5 L (32.0-37.0) g/dL Plt Count 103 L (140-440) 10*3/uL Immature Gran # 0.06 H (0.00-0.04) 10*3/uL Lymphocytes # 0.78 L (0.90-5.00) 10*3/uL Monocytes # 1.19 H (0.20-1.00) 10*3/uL ABG O2 Saturation 97.7 H (94-97) % Chloride 114 H (98-107) mmol/L Carbon Dioxide 20 L (22-30) mmol/L Glucose 111 H (74-99) mg/dL Calcium 7.9 L (8.4-10.2) mg/dL Microbiology - Last 24 Hours (Table) 10/26/24 17:20 Gram Stain - Preliminary Sputum Sputum Culture - Preliminary Assessment and Plan Plan: Acute loss in consciousness, likely cardiogenic in nature, currently under investigation. The patient is hemodynamically stable. Cardiac rhythm is atrial fibrillation with some underlying bradycardia. No acute ST segment elevation. Troponins are negative. The patient is known to have valvular heart disease with a previous TAVR. CAT scan of the brain shows no acute abnormalities and the patient has a hematoma over the left forehead along with skin abrasions. The patient was weaned off and extubated on 10/28/2024. The patient is currently on 3 L by nasal cannula. No focal neurological deficits. Awake and alert. The patient likely had a syncopal event related to bradycardia. Acute unresponsiveness, under investigation, CAT scan of the brain shows no acute abnormalities. EEG was noted. No evidence of any seizure activity. There is moderate encephalopathy and diffuse slowing. The patient has regained full consciousness. Neurowork-up has been negative thus far. Acute respiratory failure, hypoxic/hypercapnic in nature, extubated on 3 L of oxygen by nasal cannula. Acute lactic acidosis, improved and the lactic acid level is normalized Chronic A-fib with significant bradycardia, currently off beta-blockers. Thyroid function tests are essentially within normal limits, the patient is currently off beta-blockers and the patient is currently on dopamine running at 1.5 mcg/kg/min. RIght thigh hematoma, measuring 10 x 4 cm in size, hemoglobin remained stable and the patient was given Balfaxar and Eliquis was reversed. Skin abrasions related to fall, left hand, elbow and forehead History of valvular heart disease/aortic valve disease with a previous TAVR History of prostate cancer with previous prostatectomy Hypothyroidism Questionable dementia maintained on Aricept Plan Patient is currently on treatment of oxygen by nasal cannula IV fluids to KVO Lasix 40 mg IV push x 1 Monitor the cardiac rhythm. Continue dopamine as the patient's bradycardia responded nicely to dopamine and this is running at 1.5 mcg/kg/min. Will gradually wean off the dopamine and discontinue. Evaluate this patient for a pacemaker insertion should the patient continues to have episodes of bradycardia. No need for norepinephrine at this point Echocardiogram shows a preserved LV function with an ejection fraction of 60%. Bioprosthetic aortic valve/TAVR is fully functional. Hold beta-blockers for now Hold anticoagulation with Eliquis and the patient was given Balfaxar for reversal of anticoagulant effect Triple antibiotic coverage appointment for skin abrasions Continue Synthroid Cardiology consultation monitor the right thigh hematoma. Currently stable. Hemoglobin remained stable. Start the patient IV Unasyn as empiric antibiotic coverage. Consult cardiology is appreciated Consults trauma surgery is appreciated Ortho consult is appreciated Will continue to follow Critical care evaluation that was done and 35 minutes. Time with Patient: Greater than 30
[2024-10-29] MEDS: ACETAMINOPHEN TAB 325 MG TAB PO PRN (21:09)
[2024-10-30] MEDS: DONEPEZIL 10 MG TAB PO SCH (00:08)
--- NOTE | 2024-10-30 06:32 | P.PN ---
Subjective This is not 84-year old male with past medical history significant for TAVR at [facility], aortic valve disease, chronic atrial fibrillation, hypertension, prostate cancer with prostatectomy, hypothyroidism and multiple other medical issues, [place] of blood and vomit, downtime unknown. Sustained head injury with abrasion and hematoma of the left forehead. EMS responded, GCS of 9, placed in a c-collar, received bagged ventilation.EKG reported atrial fibrillation. Patient is currently in ICU, mechanically laureen tilated with FiO2 60%/+5 of PEEP, sedated on diprovan and on Levophed for pressure control ,IV fluids and cefazolin. Telemetry reporting bradycardic with heart rates as low as in the 40s. Patient's home medication including metoprolol which is on hold. Anticoagulation currently on hold. On admission lactic acid 7.2, normal WBC, hemoglobin 16, creatinine 1.26 .received IV fluid resuscitation.afebrile, normal WBC, hemoglobin 13.6, platelets 101 Sodium 141 potassium 3.5 bicarb increased from 20 to 24 BUN 26 with a creatinine 89 and a lactic acid responded to IV fluids ,decreased to 1.1. Calcium, LFT s, troponin within normal limits. ProBNP 2790. UA reported +1 protein, small blood, negative nitrates and leukocytes 2 WBCs. Toxicology screen negative ,alcohol level less than 10. CT brain C-spine reporting no acute intracranial process , no fractures, acute left forehead soft tissue hematoma measuring up to 1 cm thickness, no evidence of cervical spine fracture , moderate multilevel degenerative disc disease, biapical intralobular septal thickening. Pelvis x-ray reported no evidence of fracture or dislocation, no acute osseous pathology. 10/28 patient presents because found by family unresponsiveness on the ground. He is afebrile. Labs showing leukocytosis of 11.1. Rest of CBC is unremarkable. pH normal 7.3. Creatinine within the reference range. Chest x-ray: Endotracheal tube within distal tip 5.5 cm above shaina. Similar left-sided airspace opacity Patient currently covered with Unasyn and also getting IV fluid normal saline 75 mL/h Echocardiogram:Ejection fraction is estimated at 60%. Bioprosthetic TAVR About 10.[address] of the right knee showing large hematoma along the medial aspect of the lower thigh Patient undergoing breathing trial, he started waking up Also he is on dopamine drip eventually he will need permanent pacemaker He is on antibiotic for pulmonary infiltrate seen possibly on the chest x-ray 10/29 Patient today awake alert sitting in chair Denies any chest pain no headache no dizziness or shortness of breath Rash on the left forehead, drying Patient denies any blurred vision or double vision when examined Brown catheter in place Objective - Vital Signs Vital signs: Vital Signs Temp 98.8 F 10/29/24 04:00 Pulse 84 10/29/24 07:00 Resp 18 10/29/24 07:00 BP 113/68 10/29/24 07:00 Pulse Ox 97 10/29/24 07:00 FiO2 3 10/29/24 04:00 Intake & Output 10/28/24 10/29/24 10/29/24 18:59 06:59 18:59 Intake Total 6786.752 7693.338 85 Output Total 735 650 30 Balance 781.886 432.338 55 Intake: IV 1105 1020 85 0.9% @ KVO 130 120 10 Sodium Chloride 0.9% 1, 975 900 75 000 ml @ 75 mls/hr IV . [id number] [facility] Rx#:[id number] Intake, IV Titration 231.886 62.338 Amount DOPamine DRIP 800 mg In 138.235 62.338 Dextrose/Water 1 250ml. bag @ 1 MCG/KG/MIN 1.776 mls/hr IV .Q24H [facility] Rx#: [id number] propofoL 1,000 mg In 93.651 Empty Bag 1 bag @ 15 MCG/ KG/MIN 7.552 mls/hr IV . [id number] [facility] Rx#:[id number] Tube Feeding 150 Other 30 Output: Urine 735 650 30 Other: Voiding Method Indwelling Catheter Indwelling Catheter - Exam GENERAL: The patient is intubated and sedated. HEENT: Pupils are round and equally reacting to light. EOMI. No scleral icterus. No conjunctival pallor. Normocephalic, atraumatic. No pharyngeal erythema. No thyromegaly. CARDIOVASCULAR: S1 and S2 present. No murmurs, rubs, or gallops. PULMONARY: Chest is clear to auscultation, no wheezing , no crackles. ABDOMEN: Soft, nontender, nondistended, normoactive bowel sounds. No palpable organomegaly. MUSCULOSKELETAL: No joint swelling or deformity. EXTREMITIES: No cyanosis, clubbing, or pedal edema. NEUROLOGICAL: Gross neurological examination did not reveal any focal deficits. SKIN: No rashes. no petechiae. - Labs CBC & Chem 7: 10/29/24 06:00 10/29/24 06:00 Labs: Abnormal Lab Results - Last 24 Hours (Table) 10/28/24 10/29/24 10/29/24 Range/Units 13:18 06:00 06:00 RBC 4.07 L (4.40-5.60) 10*6/uL Hgb 12.5 L (13.0-17.0) g/dL MCV 97.5 H (80.0-97.0) fL MCHC 31.5 L (32.0-37.0) g/dL Plt Count 103 L (140-440) 10*3/uL Immature Gran # 0.06 H (0.00-0.04) 10*3/uL Lymphocytes # 0.78 L (0.90-5.00) 10*3/uL Monocytes # 1.19 H (0.20-1.00) 10*3/uL ABG O2 Saturation 97.7 H (94-97) % Chloride 114 H (98-107) mmol/L Carbon Dioxide 20 L (22-30) mmol/L Glucose 111 H (74-99) mg/dL Calcium 7.9 L (8.4-10.2) mg/dL Microbiology - Last 24 Hours (Table) 10/26/24 17:20 Gram Stain - Preliminary Sputum Sputum Culture - Preliminary Assessment and Plan Assessment: Found unresponsive on the ground Acute hypoxic hypercapnic respiratory failure, improving Possible left lower lobe pneumonia sick sinus syndrome Chronic atrial fibrillation Right thigh hematoma Left hand/elbow abscess Possible fall Plan: Continue with antibiotic Unasyn normal saline discontinued One-time dose of Lasix Patient can be transferred out of the ICU Pulmonary/critical care team with help with vent management Cardio team on the case, patient probably will need permanent pacemaker, Continue with dopamine drip. Labs and medication were reviewed.. Continue same treatment. Continue with symptomatic treatment. Resume home medication. Monitor labs and vitals. DVT and GI prophylaxis. Further recommendations as per clinical course of the patie nt DVT prophylaxis: GI Prophylaxis: Pepcid PT/OT: Pending Prognosis is guarded
--- NOTE | 2024-10-30 07:52 | P.PN ---
Subjective Progress Note Date: 10/30/24 The patient was seen and evaluated this morning. He is in atrial fibrillation with controlled heart rate and no bradycardia detected as of now. Metoprolol continues to be on hold. Oral anticoagulation is on. The patient is asymptomatic. He is hemodynamically stable. The physical examination is remar kable for irregular rhythm with a systolic murmur at the right upper sternal border with diminished breathing sounds bilaterally and no edema was noted in the lower extremities IMPRESSION: Mechanical fall Persistent atrial fibrillation, on anticoagulation Sick sinus syndrome/bradycardia which has resolved Pulmonary edema Hypothyroidism, suppressed TSH PLAN: Continue current medical regimen Continue for any more episode of bradycardia Continue oral anticoagulation Follow-up with the patient Objective - Vital Signs Vital signs: Vital Signs Temp 97.9 F 10/30/24 04:45 Pulse 86 10/30/24 04:45 Resp 14 10/30/24 04:45 BP 154/87 10/30/24 04:45 Pulse Ox 95 10/30/24 04:45 FiO2 3 10/29/24 04:00 Intake & Output 10/29/24 10/30/24 10/30/24 18:59 06:59 18:59 Intake Total 835.978 100 Output Total 1695 1235 Balance -859.022 -1135 Weight 95 kg Intake: IV 270 0 0.9% @ KVO 120 0 Sodium Chloride 0.9% 1, 150 000 ml @ 75 mls/hr IV . [id number] [facility] Rx#:[id number] Intake, IV Titration 65.978 Amount Ampicillin-Sulbactam 1.5 50 gm In Sodium Chloride 0.9 % 50 ml @ 100 mls/hr IVPB Q6H [facility] Rx#:[id number] DOPamine DRIP 800 mg In 15.978 Dextrose/Water 1 250ml. bag @ 1 MCG/KG/MIN 1.776 mls/hr IV .Q24H [facility] Rx#: [id number] Oral 500 100 Output: Urine 1695 1235 Other: Voiding Method Indwelling Catheter Indwelling Catheter - Labs CBC & Chem 7: 10/29/24 06:00 10/29/24 06:00 Labs: Microbiology - Last 24 Hours (Table) 10/26/24 17:20 Gram Stain - Final Sputum Sputum Culture - Final
--- NOTE | 2024-10-30 11:31 | P.PN ---
Subjective Progress Note Date: 10/30/24 H&P Date: 10/27/24 Chief Complaint: [place], unwitnessed This is not 84-year old male with past medical history significant for TAVR at [facility], aortic valve disease, chronic atrial fibrillation, hypertension, prostate cancer with prostatectomy, hypothyroidism and multiple other medical issues, [place] blood and vomit, downtime unknown. Sustained head injury with abrasion and hematoma of the left forehead. EMS responded, GCS of 9, placed in a c-collar, received bagged ventilation.EKG reported atrial fibrillation. Patient is currently in ICU, mechanically ventilated with FiO2 60%/+5 of PEEP, sedated on diprovan and on Levophed for pressure control ,IV fluids and cefazolin. Telemetry reporting bradycardic with heart rates as low as in the 40s. Patient's home medication including metoprolol which is on hold. Anticoagulation currently on hold. On admission lactic acid 7.2, normal WBC, hemoglobin 16, creatinine 1.26 .received IV fluid resuscitation.afebrile, normal WBC, hemoglobin 13.6, platelets 101 Sodium 141 potassium 3.5 bicarb increased from 20 to 24 BUN 26 with a creatinine 89 and a lactic acid responded to IV fluids ,decreased to 1.1. Calcium, LFT s, troponin within normal limits. ProBNP 2790. UA reported +1 protein, small blood, negative nitrates and leukocytes 2 WBCs. Toxicology screen negative ,alcohol level less than 10. CT brain C-spine reporting no acute intracranial process , no fractures, acute left forehead soft tissue hematoma measuring up to 1 cm thickness, no evidence of cervical spine fracture , moderate multilevel degenerative disc disease, biapical intralobular septal thickening. Pelvis x-ray reported no evidence of fracture or dislocation, no acute osseous pathology. 10/30/2024 telemetry atrial fibrillation with controlled ventricular rate. Metoprolol on hold. denies chest pain, palpitations or shortness of breath. Patient unable to recall what transpired prior to his fall/unresponsiveness. Reports he was wearing a alert button which apparently went off with the fall. Right shoulder x-ray reported no acute osseous pathology, mild shoulder osteoarthrosis.Elbow x-ray reported no acute osseous pathology. Mild shoulder osteoarthrosis. Orthopedic surgery following, recommending nonoperative treatment of right thigh hematoma. Objective - Vital Signs Vital signs: Vital Signs Temp 97.8 F 10/30/24 08:00 Pulse 87 10/30/24 08:00 Resp 18 10/30/24 08:00 BP 135/84 10/30/24 08:00 Pulse Ox 97 10/30/24 08:00 FiO2 3 10/29/24 04:00 Intake & Output 10/29/24 10/30/24 10/30/24 18:59 06:59 18:59 Intake Total 835.978 100 Output Total 1695 1235 Balance -859.022 -1135 Weight 95 kg Intake: IV 270 0 0.9% @ KVO 120 0 Sodium Chloride 0.9% 1, 150 000 ml @ 75 mls/hr IV . [id number] [facility] Rx#:[id number] Intake, IV Titration 65.978 Amount Ampicillin-Sulbactam 1.5 50 gm In Sodium Chloride 0.9 % 50 ml @ 100 mls/hr IVPB Q6H [facility] Rx#:[id number] DOPamine DRIP 800 mg In 15.978 Dextrose/Water 1 250ml. bag @ 1 MCG/KG/MIN 1.776 mls/hr IV .Q24H [facility] Rx#: [id number] Oral 500 100 Output: Urine 1695 1235 Other: Voiding Method Indwelling Catheter Indwelling Catheter Indwelling Catheter - Exam PHYSICAL EXAM: VITAL SIGNS: [Reviewed] GENERAL: Obese, sitting up in chair, alert and oriented x 3, no acute distress. HEENT: Left forehead hematoma/abrasion. Conjunctivae normal. eyes normal. NECK: Supple, no JVD. CARDIOVASCULAR: S1, S2. irregular. Systolic murmur RESPIRATION: Unlabored, equal air entry, breath sounds CTA ABDOMEN: Soft, nontender ,no masses palpable. No organomegaly .+BS EXTREMITIES: Skin abrasions,right thigh hematoma,positive edema,peripheral pulses intact PSYCHIATRY/ NERVOUS SYSTEM: Cranial nerves II through XII grossly intact. Skin: Warm and dry, skin abrasions. - Labs CBC & Chem 7: 10/29/24 06:00 10/29/24 06:00 Labs: Microbiology - Last 24 Hours (Table) 10/26/24 17:20 Gram Stain - Final Sputum Sputum Culture - Final Assessment and Plan Assessment: Acute unresponsiveness, status post mechanical fall fall, etiology unclear, suspecting cardiac Acute syncope Bradycardia, beta-edwar on hold Acute lactic acidosis, resolved with IV fluid hydration Acute hypoxic, hypercapnic respiratory failure, on mechanical ventilation Hypotension, status post Levophed acute left forehead soft tissue hematoma;right thigh hematoma , skin abrasions left hand, elbow and forehead. Right thigh hematoma,measuring 10 x 4 cm in size, hemoglobin remained stable, received Balfaxar and Eliquis was reversed. CAD, history of aortic valve disease with TAVR at [facility] Chronic A-fib Hypothyroidism History of prostate cancer with prostatectomy Possible obstructive sleep apnea, will require sleep study outpatient Morbid obesity, BMI 32 Questionable dementia, on Aricept Plan: Continue on current medication regimen ,monitoring and symptomatic treatment. Multiple consults following. Maintained on continue monitoring for bradycardia. Anticoagulation as per cardiology. PT/OT. discharge planning in the next 24 to 48 hours. The impression and plan of care has been dictated as directed. : I performed a history and examination of this patient, discussed the same with the dictator. I agree with the dictator's note ,documented as a scribe. Any additional findings or plans will be noted.
--- NOTE | 2024-10-30 14:00 | P.PN ---
Subjective Progress Note Date: 10/30/24 CHIEF COMPLAINT: Level 1 trauma, found down HISTORY OF PRESENT ILLNESS: The patient is a 80-year-old male admitted after being found down and unresponsive as a level 1 trauma. Patient has been transferred to the floor. His family is at bedside. He is more awake and alert. He sitting up in chair. No reports abdominal pain. He has no recollection of the events leading to his fall. ROS: No reports of nausea and vomiting. No shortness of breath. No fevers or chills. PHYSICAL EXAM: VITAL SIGNS: Reviewed CONSTITUTIONAL: Well developed and in no acute distress. EYES: Conjuctivae without sclera icterus. Extraocular movements grossly intact. HEAD, EARS, NOSE, THROAT: Moist buccal mucosa. Head is atraumatic, normocephalic. Hears conversational speech. No nasal drainage. Resolved ecchy mosis and dried blood along the left forehead. RESPIRATORY: Non-labored respirations and equal bilateral excursions. CARDIOVASCULAR: Palpable 2+ radial pulses. ABDOMEN: Nontender. MUSCULOSKELETAL: No clubbing cyanosis. Right medial knee hematoma, decreased in size. SKIN: Good skin turgor. Well perfused. NEUROLOGIC: Cranial nerves II through XII grossly intact. No focal or lateralizing signs. PSYCH: Appropriate affect. Alert and oriented to person LABS: No new labs today. ASSESSMENT: 1. Loss of consciousness status post fall ground-level 2. History of blood thinner use 3. History of valvular replacement 4. Frontal hematoma PLAN: 1. Patient stable from a trauma standpoint and discharge pending medical clearance. 2. Trauma surgery service will sign off. Dictation was produced using [employer] dictation software. Please excuse any grammatical, word or spelling errors. Objective - Vital Signs Vital signs: Vital Signs Temp 97.8 F 10/30/24 12:00 Pulse 81 10/30/24 12:15 Resp 18 10/30/24 12:00 BP 118/71 10/30/24 12:00 Pulse Ox 97 10/30/24 12:00 FiO2 3 10/29/24 04:00 Intake & Output 10/29/24 10/30/24 10/30/24 18:59 06:59 18:59 Intake Total 835.978 100 Output Total 1695 1235 Balance -859.022 -1135 Weight 95 kg Intake: IV 270 0 0.9% @ KVO 120 0 Sodium Chloride 0.9% 1, 150 000 ml @ 75 mls/hr IV . [id number] [facility] Rx#:[id number] Intake, IV Titration 65.978 Amount Ampicillin-Sulbactam 1.5 50 gm In Sodium Chloride 0.9 % 50 ml @ 100 mls/hr IVPB Q6H [facility] Rx#:[id number] DOPamine DRIP 800 mg In 15.978 Dextrose/Water 1 250ml. bag @ 1 MCG/KG/MIN 1.776 mls/hr IV .Q24H [facility] [place] Rx#: [id number] Oral 500 100 Output: Urine 1695 1235 Other: Voiding Method Indwelling Catheter Indwelling Catheter Indwelling Catheter - Labs CBC & Chem 7: 10/29/24 06:00 10/29/24 06:00 Labs: Microbiology - Last 24 Hours (Table) 10/26/24 17:20 Gram Stain - Final Sputum Sputum Culture - Final
--- NOTE | 2024-10-30 15:14 | P.PN ---
Subjective Progress Note Date: 10/30/24 I am seeing the patient for the first time during this hospital admission. Please refer to Dr. Alvares's notes for further details. His step-daughter is at bedside. It [place] and he does not recall what transpired. It seems he was found down around the concrete. He denies any aura prior to episode. Denies history of seizures. He has flutters of eyes since fall. He has bruise on the left face around the forehead and eye. He has moderate to significant edema in the right upper and lower extremity. Objective - Vital Signs Vital signs: Vital Signs Temp 97.8 F 10/30/24 12:00 Pulse 81 10/30/24 12:15 Resp 18 10/30/24 12:00 BP 118/71 10/30/24 12:00 Pulse Ox 97 10/30/24 12:00 FiO2 3 10/29/24 04:00 Intake & Output 10/29/24 10/30/24 10/30/24 18:59 06:59 18:59 Intake Total 835.978 100 Output Total 1695 1235 Balance -859.022 -1135 Weight 95 kg Intake: IV 270 0 0.9% @ KVO 120 0 Sodium Chloride 0.9% 1, 150 000 ml @ 75 mls/hr IV . [id number] [facility] Rx#:[id number] Intake, IV Titration 65.978 Amount Ampicillin-Sulbactam 1.5 50 gm In Sodium Chloride 0.9 % 50 ml @ 100 mls/hr IVPB Q6H [facility] Rx#:[id number] DOPamine DRIP 800 mg In 15.978 Dextrose/Water 1 250ml. bag @ 1 MCG/KG/MIN 1.776 mls/hr IV .Q24H [facility] Rx#: [id number] Oral 500 100 Output: Urine 1695 1235 Other: Voiding Method Indwelling Catheter Indwelling Catheter Indwelling Catheter - Exam General: Sitting in a recliner chair and is not in acute distress. HENT: Bruise over the left forehead and beatrsi-orbital. Neuro: Patient is awake alert oriented to self place and time. Is following simple commands. No aphasia. Pupils are round about 3 mm and reactive to light. Dysarthric conversation. Extraocular moods intact no nystagmus. No facial weakness. No dysarthria Motor: Strength is limited in the right upper and lower upper extremity because of edema as well as some pain. The strength over the left side is 5 out of 5 while the right upper extremity he is able to lift above gravity and strength is at least 3 to a weak 4/5 but again limited because of edema and pain. The lower he is able to wiggle toes. - Labs CBC & Chem 7: 10/29/24 06:00 10/29/24 06:00 Assessment and Plan Assessment: Acute loss of consciousness and subsequent unresponsiveness. Unclear cause. Rule out cardiac arrhythmia. Patient has bradycardia as low 40-50'ss and that could be possibly the cause of his loss of consciousness. Limited examination is nonfocal. Acute respiratory failure, status post extubation 10/28/2024 Acute lactic acidosis Chronic atrial fibrillation with low ventricular rate. Patient on Eliquis. Right thigh hematoma getting worse. Patient was given Balfaxar to reverse Eliquis. Skin abrasion related to fall, left hand, elbow and forehead History of TAVR History of prostate cancer with previous prostatectomy Hypothyroidism Plan: * CT of the head is reported as no acute intracranial process. Nonspecific white matter changes likely secondary due to chronic small vessel ischemic disease. * EEG was abnormal due to background slowing of moderate to severe degree. Some triphasic waves were seen, which is also consistent with metabolic encephalopathy. * Patient's ammonia is slightly elevated. Consider lactulose. Rule out chronic liver disease. * Patient has atrial fibrillation, but Eliquis has been reversed because of right thigh hematoma. Patient at risk for cardiac event. * Is bradycardia will defer the management to the cardiology team * Seems the patient has chronic fatigue and family members have sleep apnea and does not have CPAP machine. I highly recommend patient to be evaluated by pulmonary team to address this. * Recommend the patient to be evaluated by fire engineer as an outpatient within 2 to 3 weeks and his visual floaters could be as a result of the head trauma. There is no additional neurological workup. Will sign off. Please reconsult if needed. Time with Patient: Less than 30
--- NOTE | 2024-10-30 17:52 | P.PN ---
Subjective Progress Note Date: 10/30/24 Principal diagnosis: Acute loss of consciousness/unresponsiveness etiology is unclear but possibly cardiogenic in nature This is a 84-year-old male patient, known history of chronic atrial fibrillation, known history of aortic valve disease and the patient has undergone a TAVR procedure through [facility] few years back. The patient has also previous history of hypertension, prostate cancer and the patient undergone prostatectomy and hypothyroidism. The patient was in a good state of health. The patient [place] apparently [place] and he was found to be facedown, unresponsive in a pool of vomit. The patient received back ventilation the patient was brought into the emergency department. The patient was unresponsive, unable to speak and he is GCS score was 9. He did have signs of an obvious trauma to his head with any obvious area of abrasion or hematoma in the left forehead. A c-collar on the neck was applied. Following that, the patient was intubated and placed on the mechanical ventilator. Workup was initiated. The patient was found to be in sinus bradycardia with an atrial fibrillation rhythm. His current heart rate is in the mid 50s. The patient was given his CBC that showed no significant abnormalities. Normal coagulation profile. Sodium was at 145, BUN was 28 with a creatinine of 1.26 and a lactic acid level was initially at 7.2 dropped down to 1.1 following IV fluids. Calcium level was at 9.5. Normal LFTs. Normal troponins. proBNP level was 2790. UA was showing +1 protein, 2 WBCs and urine drug screen was negative and alcohol level was less than less than 10. Initial chest x-ray showed mild cardiomegaly along with increased interstitial markings bilaterally. EKG was in a good location. Postintubation, the patient was placed on assist-control mode rate of 20, tidal volume of 450, FiO2 of 100% and PEEP of 5. Blood gas showed a pH of 7.32 with a PCO2 of 44 and PO2 of 236. CAT scan of the head and the cervical spine showed no evidence of any fractures. No acute process. Nonspecific white matter changes, acute left forehead soft tissue hematoma and no evidence of any cervical spine fracture at the patient has multilevel degenerative disc disease. The patient also had biapical interlobular septal thickening. X-ray of the pelvis showed no evidence of any osseous fractures. At this point in time, the patient is in the intensive care unit, sedated with propofol running at 50 mcg/kg/min. Hemodynamically stable. Producing adequate amount of urine output and the patient is currently on IV fluids at a rate of 100 cc an hour. The patient is also on IV cefazolin. Afebrile. Pupils are equal and reactive to light. The patient is withdrawing to deep painful stimulation. No facial asymmetry. On 10/27/2024, the patient is being seen for a follow-up. The patient remains on propofol running at 35 mcg/kg/min. The patient is assist-control mode of mechanical ventilation at rate of 20, tidal volume of 450, FiO2 60% with a PEEP of 5. The blood gas showed a pH of 7.48 with a [id number] and PO2 of 87. Chest x- ray remains unchanged and is essentially clear. The patient remains in normal [place] rate of 75 cc an hour. No pressors. Remains atrial fibrillation. The patient continues to have episodes of bradycardia with a heart rate as low as 29 has been reported. His current heart rate is ranging between 45 and 55. He remains in atrial fibrillation. Blood pressure is soft. Recommend initiation of dopamine. Meanwhile, the patient was given reversal for Eliquis and the jo-ann ent had an infusion of Balfaxar. He does have a hematoma measuring 10 x 4.4 cm in the medial aspect of the right side. The hemoglobin from today is at 13.6, essentially stable compared to yesterday. The white cell count of 7.9. Platelet count is at 101. BUN is 26 with a creatinine of 0.89 and sodium is at 141 and a potassium level is at 3.5. TSH level was 0.27. T3 level is 114. The CPK level was 33. Troponin I level was less than 0.01. Lactic acid level has normalized and is currently down to 1.1. On 10/20/2024, the patient is still sedated on propofol running at 30 mcg/kg/min. Remains on a mechanical ventilator. This morning, he is on assist-control mode at rate of 12, tidal volume of 450, FiO2 50% with a PEEP of 5. Blood gas showed a pH of 7.38 with a PCO2 of 41 and PO254. Chest x-ray shows development of a left sided airspace disease. The patient will be started empirically on IV antibiotics. Will start the patient IV Unasyn. Meanwhile, the patient remains in atrial fibrillation. Heart rate is improved without the patient being on dopamine which is currently running at 3 mcg/kg/min. Adequate urine output. Briefly, the patient was given norepinephrine overnight for a total of 5 hours and currently is off norepinephrine. EEG showing moderate to severe slowing without any seizure activity. The patient remains on vital HP at rate of 30 cc an hour. WBC count is at 11.8 with a hemoglobin 14.5 and a platelet count of 112. Sodium is 143, bicarb is at 21, potassium is at 4.2, BUN is 18 with a creatinine of 0.8. Sputum sample was sent on 10/26/2024 shows no significant microbial growth. The right thigh hematoma remains stable. Hemoglobin remained stable at 14.5. Patient is still being seen by trauma surgery. On 10/29/2024, the patient has awake and alert and the patient is currently on 3 L of oxygen by nasal cannula. The patient was weaned off the mechanical ventilator and the patient was extubated on 10/28/2024 and the patient is currently on 3 L of oxygen by nasal cannula. The patient is not having any major respiratory difficulties. His condition is stable. Remains on dopamine which is running at 1.5 mcg/kg/min and the patient is not having any significant bradycardia arrhythmias. Remains in atrial fibrillation. Remains in normal S aint rate of 75 cc an hour. Awake and alert and communicating. Remains on IV Unasyn. Meanwhile, a repeat chest x-ray was done today and the patient was found to have cardiomegaly and mild pulm vascular congestion and small pleural effusions. Based on that, IV fluids will be cut down. X-ray of the shoulder was also done that showed no evidence of any fracture. X-ray of the elbow showed no evidence of any fractures. The white cell count at 9.9, he was 4.5 and a platelet count of 103. Sodium is at 143, BUN 16 with a creatinine of 0.7. Serum bicarb is at 20. No other significant events over the past 24 hours specially postextubation. The hematoma in the right thigh remains unchanged. There is some blister forming over the skin at the site of the hematoma. General surgery is on the case. Orthopedic surgery is also on the case. Hemoglobin remained stable. Seen today on 10/30/2024 patient is doing well, relatively asymptomatic, patient is wondering if he could be discharged home and I explained to him that it is up to the other consultants on the case. Pulmonary marie the patient doing great, he has no active pulmonary symptoms no cough no wheezing no shortness of breath, multiple consultants are on the case. WBC 9.9 hemoglobin 12.5 Objective - Vital Signs Vital signs: Vital Signs Temp 97.8 F 10/30/24 12:00 Pulse 77 10/30/24 16:00 Resp 18 10/30/24 16:00 BP 134/72 10/30/24 16:00 Pulse Ox 96 10/30/24 16:00 FiO2 3 10/29/24 04:00 Intake & Output 10/29/24 10/30/24 10/30/24 18:59 06:59 18:59 Intake Total 835.978 100 Output Total 1695 1235 Balance -859.022 -1135 Weight 95 kg Intake: IV 270 0 0.9% @ KVO 120 0 Sodium Chloride 0.9% 1, 150 000 ml @ 75 mls/hr IV . [id number] LEYDI Rx#:[id number] Intake, IV Titration 65.978 Amount Ampicillin-Sulbactam 1.5 50 gm In Sodium Chloride 0.9 % 50 ml @ 100 mls/hr IVPB Q6H LEYDI Rx#:[id number] DOPamine DRIP 800 mg In 15.978 Dextrose/Water 1 250ml. bag @ 1 MCG/KG/MIN 1.776 mls/hr IV .Q24H LEYDI Rx#: [id number] Oral 500 100 Output: Urine 1695 1235 Other: Voiding Method Indwelling Catheter Indwelling Catheter Indwelling Catheter - Exam GENERAL: Revealed a 84-year-old white male in no distress Head: Evidence of abrasion/hematoma on the left side of the face and forehead. NECK: Supple without JVD or thyromegaly. LUNGS: Clear bilaterally no crackles rhonchi or wheezes HEART: Distant S1-S2, 2/6 systolic murmur throughout the precordium EXTREMITIES: Trace of bipedal edema Neurologic: Alert oriented x 3 no gross focal deficit Psychiatric: Normal mood affect and no mental status examination - Labs CBC & Chem 7: 10/29/24 06:00 10/29/24 06:00 Assessment and Plan Assessment: Impression: Mechanical fall with significant cardiac history including sick sinus syndrome and aortic valve disease Acute syncope Acute respiratory failure, hypoxic/hypercapnic in nature, resolved Acute lactic acidosis, improved and the lactic acid level is normalized Chronic A-fib with significant bradycardia, currently off beta-blockers RIght thigh hematoma, measuring 10 x 4 cm in size, hemoglobin remained stable and the patient was given Balfaxar and Eliquis was reversed. Skin abrasions related to fall, left hand, elbow and forehead History of valvular heart disease/aortic valve disease with a previous TAVR History of prostate cancer with previous prostatectomy Questionable dementia maintained on Aricept Recommendation: Continue present supportive care measures as per different consultants on the case Patient has no active pulmonary symptoms since he was extubated Being followed by cardiology and by cardiology, We will sign off and see the patient as needed. Time with Patient: Less than 30
[2024-10-31 05:05] VITALS: TEMP 97.8
--- NOTE | 2024-10-31 10:04 | P.DS ---
Providers Date of admission: 10/26/24 18:54 Expected date of discharge: 10/31/24 Attending physician: Juan Carlos Arnold Consults: 10/26/24 18:55 Consult Physician Stat Consulting Provider: Garth Lan Consult Reason/Comments: acute vent dependance, encephalopathy Do you want consulting provider notified?: Already Contacted Consult Physician Urgent Consulting Provider: [facility] Consult Reason/Comments: pulmonary edema, bradycardia Do you want consulting provider notified?: Yes Consult Physician Urgent Consulting Provider: Leander Alvares Consult Reason/Comments: altered mental status, found down, head injury, vent dependance Do you want consulting provider notified?: Yes 10/26/24 18:57 Consult Physician Urgent Consulting Provider: Juan Carlos Arnold Consult Reason/Comments: found down, vent dependance Do you want consulting provider notified?: Yes 10/27/24 14:41 Consult Physician Routine Consulting Provider: Elizabet Spann Consult Reason/Comments: trauma Do you want consulting provider notified?: Already Contacted 10/28/24 11:37 Consult Physician Routine Consulting Provider: Ludwin Crow Consult Reason/Comments: Right knee possible ligament injury s/p fall Do you want consulting provider notified?: Yes Primary care physician: Juan Carlos Arnold Hospital Course: Final Diagnoses: Acute unresponsiveness, status post mechanical fall fall, etiology unclear, suspecting cardiac Acute syncope Bradycardia, sick sinus syndrome, beta-edwar discontinued, resolved Acute lactic acidosis, resolved with IV fluid hydration Acute hypoxic, hypercapnic respiratory failure, s/p mechanical ventilation Pulmonary edema Hypotension, status post Levophed acute left forehead soft tissue hematoma;right thigh hematoma , skin abrasions left hand, elbow and forehead. Right thigh hematoma,measuring 10 x 4 cm in size, hemoglobin remained stable, received Balfaxar and Eliquis was reversed. CAD, history of aortic valve disease with TAVR at [facility] Chronic A-fib Hypothyroidism, suppressed TSH, repeat levels OP History of prostate cancer with prostatectomy Possible obstructive sleep apnea, will require sleep study outpatient Morbid obesity, BMI 32 Questionable dementia, on Aricept Hospital course:This is not 84-year old male with past medical history significant for TAVR at [facility], aortic valve disease, chronic atrial fibrillation, hypertension, prostate cancer with prostatectomy, hypothyroidism and multiple other medical issues, [place] in a pool of blood and vomit, downtime unknown. Sustained head injury with abrasion and hematoma of the left forehead. EMS responded, GCS of 9, placed in a c- collar, received bagged ventilation.EKG reported atrial fibrillation. Patient is currently in ICU, mechanically ventilated with FiO2 60%/+5 of PEEP, sedated on diprovan and on Levophed for pressure control ,IV fluids and cefazolin. Telemetry reporting bradycardic with heart rates as low as in the 40s. Patient's home medication including metoprolol which is on hold. Anticoagulation currently on hold. On admission lactic acid 7.2, normal WBC, hemoglobin 16, creatinine 1.26 .received IV fluid resuscitation.afebrile, normal WBC, hemoglobin 13.6, platelets 101 Sodium 141 potassium 3.5 bicarb increased from 20 to 24 BUN 26 with a creatinine 89 and a lactic acid responded to IV fluids ,decreased to 1.1. Calcium, LFT s, troponin within normal limits. ProBNP 2790. UA reported +1 protein, small blood, negative nitrates and leukocytes 2 WBCs. Toxicology screen negative ,alcohol level less than 10. CT brain C-spine reporting no acute intracranial process , no fractures, acute left forehead soft tissue hematoma measuring up to 1 cm thickness, no evidence of cervical spine fracture , moderate multilevel degenerative disc disease, biapical intralobular septal thickening. Pelvis x-ray reported no evidence of fracture or dislocation, no acute osseous pathology. 10/30/2024 telemetry atrial fibrillation with controlled ventricular rate. Metoprolol on hold. denies chest pain, palpitations or shortness of breath. Patient unable to recall what transpired prior to his fall/unresponsiveness. Reports he was wearing a alert button which apparently went off with the fall. Right shoulder x-ray reported no acute osseous pathology, mild shoulder osteoarthrosis.Elbow x-ray reported no acute osseous pathology. Mild shoulder osteoarthrosis. Orthopedic surgery following, recommending nonoperative treatment of right thigh hematoma. Multiple consults following. Maintained on continue monitoring for bradycardia. Anticoagulation as per cardiology. PT/OT. discharge planning in the next 24 to 48 hours. Significant clinical improvement. Ambulating, tolerating exertion well. Denies lightheadedness dizziness or focal deficits. Denies chest pain, palpitations or shortness of breath. Bradycardia resolved, anticoagulation resumed and cleared by cardiology for discharge. Patient has been advised to follow-up in cardiology's office for watchman evaluation. no additional neurological workup with neurology signed off. Pulmonary has signed off.patient will be discharged to [facility] subacute rehab today in a stable condition with guarded prognosis. The impression and plan of care has been dictated as directed. : I performed a history and examination of this patient, discussed the same with the dictator. I agree with the dictator's note ,documented as a scribe. Any additional findings or plans will be noted. Patient Condition at Discharge: Stable Plan - Discharge Summary Discharge Rx Participant: No New Discharge Prescriptions: New Hyoscyamine Sulfate [Levbid] 0.375 mg PO BID tab Pantoprazole [Protonix] 40 mg PO DAILY #30 tab Ipratropium-Albuterol Nebulize [Duoneb 0.5 mg-3 mg/3 ml Soln] 3 ml INHALATION RT-Q4H PRN each PRN Reason: Shortness Of Breath Or Wheezing HYDROcodone/APAP 5-325MG [[place] 5-325] 1 each PO Q6HR PRN #12 tab PRN Reason: Pain Acetaminophen Tab [Tylenol] 325 mg PO Q6HR PRN tab PRN Reason: Fever And/ Or Pain Continue Vibegron [Gemtesa] 75 mg PO DAILY Donepezil [Aricept] 10 mg PO HS Apixaban [Eliquis] 5 mg PO BID Levothyroxine Sodium [Synthroid] 137 mcg PO DAILY Discontinued Metoprolol Tartrate 25 mg PO BID Discharge Medication List Apixaban [Eliquis] 5 mg PO BID 02/16/24 [History] Vibegron [Gemtesa] 75 mg PO DAILY 02/16/24 [History] Donepezil [Aricept] 10 mg PO HS 10/26/24 [History] Levothyroxine Sodium [Synthroid] 137 mcg PO DAILY 10/26/24 [History] Acetaminophen Tab [Tylenol] 325 mg PO Q6HR PRN tab 10/31/24 [Rx] HYDROcodone/APAP 5-325MG [[place] 5-325] 1 each PO Q6HR PRN #12 tab 10/31/24 [Rx] Hyoscyamine Sulfate [Levbid] 0.375 mg PO BID tab 10/31/24 [Rx] Ipratropium-Albuterol Nebulize [Duoneb 0.5 mg-3 mg/3 ml Soln] 3 ml INHALATION RT-Q4H PRN each 10/31/24 [Rx] Pantoprazole [Protonix] 40 mg PO DAILY #30 tab 10/31/24 [Rx] Follow up Appointment(s)/Referral(s): [facility] [Provider Group] - 1 Week Berto Cm MD [STAFF PHYSICIAN] - 2 Weeks ( visual floaters patient with recent head trauma.) Juan Carlos Arnold DO [Primary Care Provider] - 1 Week (After being discharged from subacute rehab) Activity/Diet/Wound Care/Special Instructions: [facility] subacute rehab CBC, BMP, magnesium in 3 days Repeat TSH/free T4 outpatient Outpatient sleep study for sleep apnea CT scan of the right lower extremity reported no acute fracture or dislocation, large hematoma along the medial aspect of the lower thigh measuring 10.3 x 4.4 cm extending proximal- evaluated by orthopedic surgery recommending nonoperative treatment with compression and ice prn. Discharge Disposition: TRANSFER TO SNF/ECF
[2024-10-31] MEDS: APIXABAN 5 MG TAB PO SCH (10:37)
[2024-10-31] MEDS: FUROSEMIDE 10 MG/ML 2 ML VIAL IV ONE (10:37)
[2024-10-31 11:34] VITALS: PULSE 75; RESP 16
--- NOTE | 2024-10-31 13:57 | P.PN ---
Subjective Progress Note Date: 10/31/24 The patient was seen and evaluated this morning. He is in atrial fibrillation with controlled heart rate and no bradycardia detected as of now. Metoprolol continues to be on hold. Oral anticoagulation is on. The patient is asymptomatic. He is hemodynamically stable. The physical examination is remar kable for irregular rhythm with a systolic murmur at the right upper sternal border with diminished breathing sounds bilaterally and no edema was noted in the lower extremities 10/31/2024 Patient seen and examined. Patient remains in atrial fibrillation with controlled ventricular rate. Blood pressure 136/69, heart rate 75, pulse ox 97% on room air. We will plan to start the patient on Eliquis and he will follow-up in the office for watchman evaluation. Patient is scheduled for discharge to [facility] today. IMPRESSION: Mechanical fall Persistent atrial fibrillation, on anticoagulation Sick sinus syndrome/bradycardia which has resolved Pulmonary edema Hypothyroidism, suppressed TSH PLAN: Continue current medical regimen Continue for any more episode of bradycardia Continue oral anticoagulation with Eliquis Patient is not on beta-edwar due to bradycardia Patient is cleared for discharge from cardiology perspective. Nurse practitioner note has been reviewed, I agree with documented findings and plan of care. Patient was seen and examined. Objective - Vital Signs Vital signs: Vital Signs Temp 97.8 F 10/31/24 04:05 Pulse 74 10/31/24 04:05 Resp 14 10/31/24 04:05 BP 136/82 10/31/24 04:05 Pulse Ox 96 10/31/24 04:05 FiO2 3 10/29/24 04:00 Intake & Output 10/30/24 10/31/24 10/31/24 18:59 06:59 18:59 Intake Total 895 Output Total 450 Balance -450 895 Weight 95.5 kg Intake: Oral 895 Output: Urine 450 Other: Voiding Method Indwelling Catheter Indwelling Catheter # Voids 2 # Bowel Movements 1 1 - Labs CBC & Chem 7: 10/29/24 06:00 10/29/24 06:00
[2024-10-31 14:19] VITALS: BMI 32.0
--- NOTE | 2024-10-31 15:04 | P.PN ---
Subjective Progress Note Date: 10/31/24 Principal diagnosis: Acute loss of consciousness/unresponsiveness etiology is unclear but possibly cardiogenic in nature This is a 84-year-old male patient, known history of chronic atrial fibrillation, known history of aortic valve disease and the patient has undergone a TAVR procedure through [facility] few years back. The patient has also previous history of hypertension, prostate cancer and the patient undergone prostatectomy and hypothyroidism. The patient was in a good state of health. The patient [place] and he was found to be facedown, unresponsive in a pool of vomit. The patient received back ventilation the patient was brought into the emergency department. The patient was unresponsive, unable to speak and he is GCS score was 9. He did have signs of an obvious trauma to his head with any obvious area of abrasion or hematoma in the left forehead. A c-collar on the neck was applied. Following that, the patient was intubated and placed on the mechanical ventilator. Workup was initiated. The patient was found to be in sinus bradycardia with an atrial fibrillation rhythm. His current heart rate is in the mid 50s. The patient was given his CBC that showed no significant abnormalities. Normal coagulation profile. Sodium was at 145, BUN was 28 with a creatinine of 1.26 and a lactic acid level was initially at 7.2 dropped down to 1.1 following IV fluids. Calcium level was at 9.5. Normal LFTs. Normal troponins. proBNP level was 2790. UA was showing +1 protein, 2 WBCs and urine drug screen was negative and alcohol level was less than less than 10. Initial chest x-ray showed mild cardiomegaly along with increased interstitial markings bilaterally. EKG was in a good location. Postintubation, the patient was placed on assist-control mode rate of 20, tidal volume of 450, FiO2 of 100% and PEEP of 5. Blood gas showed a pH of 7.32 with a PCO2 of 44 and PO2 of 236. CAT scan of the head and the cervical spine showed no evidence of any fractures. No acute process. Nonspecific white matter changes, acute left forehead soft tissue hematoma and no evidence of any cervical spine fracture at the patient has multilevel degenerative disc disease. The patient also had biapical interlobular septal thickening. X-ray of the pelvis showed no evidence of any osseous fractures. At this point in time, the patient is in the intensive care unit, sedated with propofol running at 50 mcg/kg/min. Hemodynamically stable. Producing adequate amount of urine output and the patient is currently on IV fluids at a rate of 100 cc an hour. The patient is also on IV cefazolin. Afebrile. Pupils are equal and reactive to light. The patient is withdrawing to deep painful stimulation. No facial asymmetry. On 10/27/2024, the patient is being seen for a follow-up. The patient remains on propofol running at 35 mcg/kg/min. The patient is assist-control mode of mechanical ventilation at rate of 20, tidal volume of 450, FiO2 60% with a PEEP of 5. The blood gas showed a pH of 7.48 with a HCM282 and PO2 of 87. Chest x- ray remains unchanged and is essentially clear. The patient remains in normal [place] rate of 75 cc an hour. No pressors. Remains atrial fibrillation. The patient continues to have episodes of bradycardia with a heart rate as low as 29 has been reported. His current heart rate is ranging between 45 and 55. He remains in atrial fibrillation. Blood pressure is soft. Recommend initiation of dopamine. Meanwhile, the patient was given reversal for Eliquis and the jo-ann ent had an infusion of Balfaxar. He does have a hematoma measuring 10 x 4.4 cm in the medial aspect of the right side. The hemoglobin from today is at 13.6, essentially stable compared to yesterday. The white cell count of 7.9. Platelet count is at 101. BUN is 26 with a creatinine of 0.89 and sodium is at 141 and a potassium level is at 3.5. TSH level was 0.27. T3 level is 114. The CPK level was 33. Troponin I level was less than 0.01. Lactic acid level has normalized and is currently down to 1.1. On 10/20/2024, the patient is still sedated on propofol running at 30 mcg/kg/min. Remains on a mechanical ventilator. This morning, he is on assist-control mode at rate of 12, tidal volume of 450, FiO2 50% with a PEEP of 5. Blood gas showed a pH of 7.38 with a PCO2 of 41 and PO254. Chest x-ray shows development of a left sided airspace disease. The patient will be started empirically on IV antibiotics. Will start the patient IV Unasyn. Meanwhile, the patient remains in atrial fibrillation. Heart rate is improved without the patient being on dopamine which is currently running at 3 mcg/kg/min. Adequate urine output. Briefly, the patient was given norepinephrine overnight for a total of 5 hours and currently is off norepinephrine. EEG showing moderate to severe slowing without any seizure activity. The patient remains on vital HP at rate of 30 cc an hour. WBC count is at 11.8 with a hemoglobin 14.5 and a platelet count of 112. Sodium is 143, bicarb is at 21, potassium is at 4.2, BUN is 18 with a creatinine of 0.8. Sputum sample was sent on 10/26/2024 shows no significant microbial growth. The right thigh hematoma remains stable. Hemoglobin remained stable at 14.5. Patient is still being seen by trauma surgery. On 10/29/2024, the patient has awake and alert and the patient is currently on 3 L of oxygen by nasal cannula. The patient was weaned off the mechanical ventilator and the patient was extubated on 10/28/2024 and the patient is currently on 3 L of oxygen by nasal cannula. The patient is not having any major respiratory difficulties. His condition is stable. Remains on dopamine which is running at 1.5 mcg/kg/min and the patient is not having any significant bradycardia arrhythmias. Remains in atrial fibrillation. Remains in normal S aint rate of 75 cc an hour. Awake and alert and communicating. Remains on IV Unasyn. Meanwhile, a repeat chest x-ray was done today and the patient was found to have cardiomegaly and mild pulm vascular congestion and small pleural effusions. Based on that, IV fluids will be cut down. X-ray of the shoulder was also done that showed no evidence of any fracture. X-ray of the elbow showed no evidence of any fractures. The white cell count at 9.9, he was 4.5 and a platelet count of 103. Sodium is at 143, BUN 16 with a creatinine of 0.7. Serum bicarb is at 20. No other significant events over the past 24 hours specially postextubation. The hematoma in the right thigh remains unchanged. There is some blister forming over the skin at the site of the hematoma. General surgery is on the case. Orthopedic surgery is also on the case. Hemoglobin remained stable. Seen today on 10/30/2024 patient is doing well, relatively asymptomatic, patient is wondering if he could be discharged home and I explained to him that it is up to the other consultants on the case. Pulmonary marie the patient doing great, he has no active pulmonary symptoms no cough no wheezing no shortness of breath, multiple consultants are on the case. WBC 9.9 hemoglobin 12.5 Seen today on 10/31/2024, patient is doing well, relatively asymptomatic, being considered for discharge to [facility] today. No active pulmonary issues no cough no wheezing no shortness of breath no chest pain. Apparently patient has been georgette red by other consultants for discharge. Objective - Vital Signs Vital signs: Vital Signs Temp 97.8 F 10/31/24 08:20 Pulse 75 10/31/24 08:20 Resp 16 10/31/24 08:20 BP 136/69 10/31/24 08:20 Pulse Ox 98 10/31/24 08:45 FiO2 3 10/29/24 04:00 Intake & Output 10/30/24 10/31/24 10/31/24 18:59 06:59 18:59 Intake Total 895 50 Output Total 450 1100 Balance -450 895 -1050 Weight 95.5 kg 95.5 kg Intake: Oral 895 50 Output: Urine 450 1100 Other: Voiding Method Indwelling Catheter Indwelling Catheter Indwelling Catheter # Voids 2 # Bowel Movements 1 1 - Exam GENERAL: Revealed a 84-year-old white male in no distress Head: Evidence of healing abrasion/on the left side of the face and forehead. NECK: Supple without JVD or thyromegaly. LUNGS: Clear bilaterally no crackles rhonchi or wheezes HEART: Distant S1-S2, 2/6 systolic murmur throughout the precordium EXTREMITIES: Trace of bipedal edema Neurologic: Alert oriented x 3 no gross focal deficit Psychiatric: Normal mood affect and no mental status examination - Labs CBC & Chem 7: 10/29/24 06:00 10/29/24 06:00 Assessment and Plan Assessment: Impression: Mechanical fall with significant cardiac history including sick sinus syndrome and aortic valve disease Acute syncope Acute respiratory failure, hypoxic/hypercapnic in nature, resolved Acute lactic acidosis, improved and the lactic acid level is normalized Chronic A-fib with significant bradycardia, currently off beta-blockers RIght thigh hematoma, measuring 10 x 4 cm in size, hemoglobin remained stable and the patient was given Balfaxar and Eliquis was reversed. Skin abrasions related to fall, left hand, elbow and forehead History of valvular heart disease/aortic valve disease with a previous TAVR History of prostate cancer with previous prostatectomy Questionable dementia maintained on Aricept Recommendation: Agree with discharge planning to ECF Patient has no active pulmonary symptoms Cleared by cardiology for discharge Time with Patient: Less than 30
[2024-10-31 15:17] VITALS: BP 132/80
[2024-10-31] MEDS ORDERED: APIXABAN 5 MG TAB PO SCH (21:00)
== END 2024-10-31 14:53 | DRG 208 ==
LOC: EC 16:25 → 2SICU 18:54 → 3SCARD 10-30 04:02
PROVIDERS: ADMIT Family Medicine; ATTEND Family Medicine
PROC: 5A1945Z Respiratory Ventilation, 24-96 Consecutive Hours (ICD-10-PCS; principal; 2024-10-26)
PROC: 0BH17EZ Insertion of Endotracheal Airway into Trachea, Via Natural or Artificial Opening (ICD-10-PCS; 2024-10-26)
PROC: 4A10X4Z Monitoring of Central Nervous Electrical Activity, External Approach (ICD-10-PCS; 2024-10-27)
DX: J96.01 Acute respiratory failure with hypoxia (principal); G93.40 Encephalopathy, unspecified; Z99.11 Dependence on respirator [ventilator] status; E03.9 Hypothyroidism, unspecified; I10 Essential (primary) hypertension; Z95.2 Presence of prosthetic heart valve; I48.19 Other persistent atrial fibrillation; E87.21 Acute metabolic acidosis; J81.1 Chronic pulmonary edema; L02.512 Cutaneous abscess of left hand; L02.414 Cutaneous abscess of left upper limb; J96.92 Respiratory failure, unspecified with hypercapnia; J96.02 Acute respiratory failure with hypercapnia; I49.5 Sick sinus syndrome; I35.9 Nonrheumatic aortic valve disorder, unspecified; Z79.890 Hormone replacement therapy; I95.9 Hypotension, unspecified; I25.10 Atherosclerotic heart disease of native coronary artery without angina pectoris; S70.11XA Contusion of right thigh, initial encounter; Z85.46 Personal history of malignant neoplasm of prostate; D72.829 Elevated white blood cell count, unspecified; D75.89 Other specified diseases of blood and blood-forming organs; F41.9 Anxiety disorder, unspecified; R00.1 Bradycardia, unspecified; S01.01XA Laceration without foreign body of scalp, initial encounter; W19.XXXA Unspecified fall, initial encounter; Y92.009 Unspecified place in unspecified non-institutional (private) residence as the place of occurrence of the external cause; Y93.K1 Activity, walking an animal; Z79.01 Long term (current) use of anticoagulants; Z79.899 Other long term (current) drug therapy; Z82.49 Family history of ischemic heart disease and other diseases of the circulatory system; Z87.891 Personal history of nicotine dependence; Z90.79 Acquired absence of other genital organ(s)
CPT/HCPCS: 36415; 36600; 70450; 71045; 72125; 72170; 80048; 80053; 80306; 80320; 81001; 82140; 82550; 82805; 83605; 83735; 83880; 84146; 84436; 84443; 84480; 84484; 85025; 85027; 85610; 85730; 86850; 86900; 86901; 87070; 87205; 93005; 93306; 94002; 94003; 94760; 95822; 96365; 96375; 99291

== ENCOUNTER 2024-11-05 13:07 | Emergency (ER) | payer MEDICARE ==
--- NOTE | 2024-11-05 13:11 | ED ---
General Adult HPI - General Stated complaint: Seizure activity, fall Time Seen by Provider: 11/05/24 13:07 Source: patient, RN notes reviewed, old records reviewed - History of Present Illness Initial comments: This is an 84-year-old male who is staying at the senior living. Patient was in bed and staff heard a loud bang and went into the room and the patient was on the ground shaking for about 3 minutes with a stated look like a seizure. Patient then was postictal and failure arrived and they also stated he was postictal. Patient slowly came around to his baseline and on the way in had no complaints. Patient had no sites of bleeding. Patient denies any chest pain. Patient denies any difficulty breathing. Patient has abdominal pain. Patient denies any history of seizures. Patient is on a blood thinner. - Related Data Home Medications Medication Instructions Recorded Confirmed Apixaban [Eliquis] 5 mg PO BID 02/16/24 10/26/24 Vibegron [Gemtesa] 75 mg PO DAILY 02/16/24 10/26/24 Donepezil [Aricept] 10 mg PO HS 10/26/24 10/26/24 Levothyroxine Sodium [Synthroid] 137 mcg PO DAILY 10/26/24 10/26/24 Previous Rx's Medication Instructions Recorded Acetaminophen Tab [Tylenol] 325 mg PO Q6HR PRN tab 10/31/24 HYDROcodone/APAP 5-325MG [[place] 1 each PO Q6HR PRN #12 tab 10/31/24 5-325] Hyoscyamine Sulfate [Levbid] 0.375 mg PO BID tab 10/31/24 Ipratropium-Albuterol Nebulize 3 ml INHALATION RT-Q4H PRN each 10/31/24 [Duoneb 0.5 mg-3 mg/3 ml Soln] Pantoprazole [Protonix] 40 mg PO DAILY #30 tab 10/31/24 Allergies Allergy/AdvReac Type Severity Reaction Status Date / Time Iodinated Contrast Media AdvReac Chest Pain Verified 11/05/24 13:24 tetanus immune globulin AdvReac Chest Pain Verified 11/05/24 13:24 Review of Systems ROS Statement: Those systems with pertinent positive or pertinent negative responses have been documented in the HPI. ROS Other: All systems not noted in ROS Statement are negative. Past Medical History Past Medical History: Atrial Fibrillation, Hypertension, Sleep Apnea/CPAP/BIPAP Additional Past Medical History / Comment(s): Previous TAVR for Aortic valve disease History of Any Multi-Drug Resistant Organisms: None Reported Past Surgical History: Cardiac Valve Replacement, Heart Catheterization, Prostate Surgery Additional Past Surgical History / Comment(s): TAVR in 2021 Past Anesthesia/Blood Transfusion Reactions: No Reported Reaction Past Psychological History: Anxiety - Past Family History Mother Family Medical History: Hypertension General Exam - General Exam Comments Initial Comments: GENERAL: Patient is well-developed and well-nourished. Patient is nontoxic and well- hydrated and is in no acute distress. ENT: Neck is soft and supple. No significant lymphadenopathy is noted. Oropharynx is clear. Moist mucous membranes. Neck has full range of motion without eliciting any pain. EYES: The sclera were anicteric and conjunctiva were pink and moist. Extraocular movements were intact and pupils were equal round and reactive to light. Eyelids were unremarkable. PULMONARY: Unlabored respirations. Good breath sounds bilaterally. No audible rales rhonchi or wheezing was noted. CARDIOVASCULAR: There is a regular rate and rhythm without any murmurs gallops or rubs. ABDOMEN: Soft and nontender with normal bowel sounds. SKIN: Patient has an old hematoma on the medial aspect of the right leg NEUROLOGIC: Patient is alert and oriented x 3. Cranial nerves II through XII are grossly intact. Motor and sensory are also intact. Normal speech, volume and content. Symmetrical smile. MUSCULOSKELETAL: Normal extremities with adequate strength and full range of motion. LYMPHATICS: No significant lymphadenopathy is noted PSYCHIATRIC: Normal psychiatric evaluation. Course Vital Signs 11/05/24 11/05/24 11/05/24 13:09 14:13 15:02 Temperature 98.8 F Pulse Rate 79 4 L 75 Respiratory 16 16 18 Rate Blood Pressure 116/69 125/64 123/83 O2 Sat by Pulse 96 94 L 95 Oximetry Medical Decision Making - Medical Decision Making EKG is interpreted by myself and EKG shows atrial fibrillation at 82 bpm QRS is 126 QT interval is 405 QTc is 443 per patient's EKG shows no ST segment elevation or depression Was pt. sent in by a medical professional or institution (, PA, PILL MACHINE OPERATOR, urgent care, hospital, or senior living...) When possible be specific @ -No Did you speak to anyone other than the patient for history (EMS, parent, family, police, friend...)? What history was obtained from this source @ -No Did you review nursing and triage notes (agree or disagree)? Why? @ -I reviewed and agree with nursing and triage notes Were old charts reviewed (outside hosp., previous admission, EMS record, old EKG, old radiological studies, urgent care reports/EKG's, senior living records)? Report findings @ -No old charts were reviewed Differential Diagnosis? @ -Differential Seizure: Recurrent seizure disorder, febrile seizure, alcohol withdrawal, stimulants, meningitis, encephalitis, intercranial hemorrhage, intracranial tumor, stroke, eclampsia, thyrotoxicosis, hypocalcemia, hyponatremia, hypernatremia, hypomagnesemia, psychogenic, this is not meant to be an all-inclusive list. EKG interpreted by me (3pts min.). @ -As above X-rays interpreted by me (1pt min.). @ -None done CT interpreted by me (1pt min.). @ -CT of the brain and C-spine showed no acute abnormality. U/S interpreted by me (1pt. min.). @ -None done What testing was considered but not performed or refused? (CT, X-rays, U/S, labs)? Why? @ -None What meds were considered but not given or refused? Why? @ -None Did you discuss the management of the patient with other professionals (professionals i.e. , PA, PILL MACHINE OPERATOR, lab, RT, psych nurse, social media intern, representative, teacher, protocol officer, employment case manager)? Give summary @ -No Was smoking cessation discussed for >3mins.? @ -No Was critical care preformed (if so, how long)? @ -No Were there social determinants of health that impacted care today? How? (Homelessness, low income, unemployed, alcoholism, drug addiction, transportation, low edu. Level, literacy, decrease access to med. care, chcf, rehab)? @ -No Was there de-escalation of care discussed even if they declined (Discuss DNR or withdrawal of care, Hospice)? DNR status @ -No What co-morbidities impacted this encounter? (DM, HTN, Smoking, COPD, CAD, Cancer, CVA, ARF, Chemo, Hep., AIDS, mental health diagnosis, sleep apnea, morbid obesity)? @ -None Was patient admitted / discharged? Hospital course, mention meds given and route, prescriptions, significant lab abnormalities, going to OR and other pertinent info. @ -Patient has no history of seizures but the witnessed reports sound like he did have a seizure type whether he had it after he hit his head or prior to his unknown. Patient will be sent back to the senior living and have seizure precautioned supplemented there Undiagnosed new problem with uncertain prognosis? @ -No Drug Therapy requiring intensive monitoring for toxicity (Heparin, Nitro, Insulin, Cardizem)? @ -No Were any procedures done? @ -No Diagnosis/symptom? @ -Generalized Acute, or Chronic, or Acute on Chronic? @ -Acute Uncomplicated (without systemic symptoms) or Complicated (systemic symptoms)? @ -Complicated Side effects of treatment? @ -No Exacerbation, Progression, or Severe Exacerbation? @ -No Poses a threat to life or bodily function? How? (Chest pain, [place], [place], pneumonia, PE, COPD, DKA, ARF, appy, cholecystitis, CVA, Diverticulitis, Homicidal, Suicidal, threat to staff... and all critical care pts) @ -No Diagnosis/symptom? @ -Head injury Acute, or Chronic, or Acute on Chronic? @ -Acute Uncomplicated (without systemic symptoms) or Complicated (systemic symptoms)? @ -Uncomplicated Side effects of treatment? @ -None Exacerbation, Progression, or Severe Exacerbation] @ -No Poses a threat to life or bodily function? @ -No - Lab Data Result diagrams: 11/05/24 13:07 11/05/24 13:29 Lab Results 11/05/24 11/05/24 11/05/24 Range/Units 13:07 13:29 13:29 WBC 11.31 H (4.50-10.00) 10*3/uL RBC 3.96 L (4.40-5.60) 10*6/uL Hgb 12.2 L (13.0-17.0) g/dL Hct 37.6 L (39.6-50.0) % MCV 94.9 (80.0-97.0) fL MCH 30.8 (27.0-32.0) pg MCHC 32.4 (32.0-37.0) g/dL Plt Count 216 D (140-440) 10*3/uL MPV 10.6 (9.5-12.2) fL Immature Gran % (Auto) 0.8 % Neutrophils % 82.5 % Lymphocytes % 7.0 % Monocytes % 7.3 % Eosinophils % 1.9 % Basophils % 0.5 % Immature Gran # 0.09 H (0.00-0.04) 10*3/uL Neutrophils # 9.34 H (1.80-7.70) 10*3/uL Lymphocytes # 0.79 L (0.90-5.00) 10*3/uL Monocytes # 0.82 (0.20-1.00) 10*3/uL Eosinophils # 0.21 (0.04-0.35) 10*3/uL Basophils # 0.06 (0.00-0.10) 10*3/uL PT 12.9 H (10.0-12.5) sec INR 1.2 H (<1.2) APTT 25.3 (22.0-30.0) sec Sodium 142 (137-145) mmol/L Potassium 4.5 (3.5-5.1) mmol/L Chloride 103 (98-107) mmol/L Carbon Dioxide 26 (22-30) mmol/L Anion Gap 13 mmol/L BUN 22 H (9-20) mg/dL Creatinine 1.12 (0.66-1.25) mg/dL Est GFR (CKD-EPI)AfAm 69 (>60 ml/min/1.73 sqM) Est GFR (CKD-EPI)NonAf 60 (>60 ml/min/1.73 sqM) Glucose 112 H (74-99) mg/dL Calcium 9.1 (8.4-10.2) mg/dL Magnesium 1.8 (1.6-2.3) mg/dL Total Bilirubin 2.3 H (0.2-1.3) mg/dL AST 27 (17-59) U/L ALT 17 (4-49) U/L Alkaline Phosphatase 78 (38-126) U/L Troponin I (0.000-0.034) ng/mL Total Protein 6.6 (6.3-8.2) g/dL Albumin 3.5 (3.5-5.0) g/dL 11/05/24 Range/Units 13:29 WBC (4.50-10.00) 10*3/uL RBC (4.40-5.60) 10*6/uL Hgb (13.0-17.0) g/dL Hct (39.6-50.0) % MCV (80.0-97.0) fL MCH (27.0-32.0) pg MCHC (32.0-37.0) g/dL Plt Count (140-440) 10*3/uL MPV (9.5-12.2) fL Immature Gran % (Auto) % Neutrophils % % Lymphocytes % % Monocytes % % Eosinophils % % Basophils % % Immature Gran # (0.00-0.04) 10*3/uL Neutrophils # (1.80-7.70) 10*3/uL Lymphocytes # (0.90-5.00) 10*3/uL Monocytes # (0.20-1.00) 10*3/uL Eosinophils # (0.04-0.35) 10*3/uL Basophils # (0.00-0.10) 10*3/uL PT (10.0-12.5) sec INR (<1.2) APTT (22.0-30.0) sec Sodium (137-145) mmol/L Potassium (3.5-5.1) mmol/L Chloride (98-107) mmol/L Carbon Dioxide (22-30) mmol/L Anion Gap mmol/L BUN (9-20) mg/dL Creatinine (0.66-1.25) mg/dL Est GFR (CKD-EPI)AfAm (>60 ml/min/1.73 sqM) Est GFR (CKD-EPI)NonAf (>60 ml/min/1.73 sqM) Glucose (74-99) mg/dL Calcium (8.4-10.2) mg/dL Magnesium (1.6-2.3) mg/dL Total Bilirubin (0.2-1.3) mg/dL AST (17-59) U/L ALT (4-49) U/L Alkaline Phosphatase (38-126) U/L Troponin I <0.012 (0.000-0.034) ng/mL Total Protein (6.3-8.2) g/dL Albumin (3.5-5.0) g/dL Disposition Clinical Impression: New onset seizure Disposition: HOME SELF-CARE Instructions (If sedation given, give patient instructions): Seizure/Epilepsy Discharge Instructions & Follow-Up Additional Instructions: Seizure precautioned Is patient prescribed a controlled substance at d/c from ED?: No Referrals: Juan Carlos Arnold DO [Primary Care Provider] - 1-2 days Time of Disposition: 15:40
--- NOTE | 2024-11-05 13:52 | CT ---
EXAMINATION TYPE: CT brain cspine wo con DATE OF EXAM: 11/05/2024 1:24 PM COMPARISON: 10/26/2024. CLINICAL INDICATION: Male, 84 years old with history of Trauma; FALL ON THINNERS. POSS SEIZURE, pain TECHNIQUE: Brain: Multiple axial CT images of the brain were obtained without IV contrast. Cspine: Axial CT images from the skull base to the inferior aspect of T2 we obtained without intraven ous contrast. Coronal and sagittal reformatted images were also reviewed. . CT DLP: 1510.8 mGycm, Automated exposure control for dose reduction was used. FINDINGS: Brain: Extra-axial spaces: No abnormal extra-axial fluid collections. Ventricular system: Dilatation in proportion to cerebral atrophy. Cerebral parenchyma: Cerebral atrophy. No acute intraparenchymal hemorrhage or mass effect. The kim -white junction is well differentiated. Scattered hypoattenuating areas are seen within the white mat ter. Cerebellum: Unremarkable. Mass effect: No evidence of midline shift. Intracranial vasculature: Atherosclerotic calcifications of the intracranial vessels. Soft tissues: Left forearm scalp edema Calvarium/osseous structures: No depressed skull fracture. Paranasal sinuses and mastoid air cells: Clear. Visualized orbits: Orbital contents are intact. Cervical spine: Fracture: None. Osseous structures: Multilevel degenerative disc disease changes with endplate spurring and disc oste ophyte complex's. Vertebral alignment: Within normal limits. Spinal canal/Neural Foramina: Disc osteophyte complexes at C3-C4 through C5-C6. With at least mild sp inal canal stenosis. No evidence for significant neural foraminal stenosis. Neck soft tissues: Prevertebral soft tissues are within normal limits. Other: The airway is patent. The lung apices are clear. IMPRESSION: 1. No acute intracranial process. 2. Nonspecific white matter changes, likely secondary to chronic small vessel ischemic disease.. 3. Left forehead scalp edema. No evidence for fracture 4. No evidence of cervical spine fracture. 5. Moderate multilevel degenerative disc disease with large disc osteophyte complexes worse at C4-C5 as seen on prior. [facility], , 11/05/2024 1:49 PM
[2024-11-05 13:58] LABS: ALT 17 U/L (4-49); AST 27 U/L (17-59); African American GFR (CKD) 69 (>60 ml/min/1.73 sqM); Albumin 3.5 g/dL (3.5-5.0); Alkaline Phosphatase 78 U/L (38-126); Anion Gap 13 mmol/L; Blood Urea Nitrogen 22 mg/dL (9-20); Calcium 9.1 mg/dL (8.4-10.2); Carbon Dioxide 26 mmol/L (22-30); Chloride 103 mmol/L (98-107); Glucose 112 mg/dL (74-99); Magnesium 1.8 mg/dL (1.6-2.3); Non-African American GFR(CKD) 60 (>60 ml/min/1.73 sqM); Potassium 4.5 mmol/L (3.5-5.1); Sodium 142 mmol/L (137-145); Total Protein 6.6 g/dL (6.3-8.2)
[2024-11-05 14:08] LABS: INR 1.2 (<1.2); Partial Thromboplastin Time 25.3 sec (22.0-30.0); Prothrombin Time 12.9 sec (10.0-12.5)
[2024-11-05 14:31] LABS: Basophils # (A) 0.06 10*3/uL (0.00-0.10); Basophils % (A) 0.5 %; Eosinophils # (A) 0.21 10*3/uL (0.04-0.35); Eosinophils % (A) 1.9 %; HCT 37.6 % (39.6-50.0); HGB 12.2 g/dL (13.0-17.0); Lymphocytes # (A) 0.79 10*3/uL (0.90-5.00); Lymphocytes % (A) 7.0 %; MCH 30.8 pg (27.0-32.0); MCHC 32.4 g/dL (32.0-37.0); MCV 94.9 fL (80.0-97.0); Monocytes # (A) 0.82 10*3/uL (0.20-1.00); Monocytes % (A) 7.3 %; Neutrophils # (A) 9.34 10*3/uL (1.80-7.70); Neutrophils % (A) 82.5 %; RBC 3.96 10*6/uL (4.40-5.60); RDW 15.2 % (11.5-14.5); WBC 11.31 10*3/uL (4.50-10.00)
[2024-11-05 14:40] LABS: Platelet Count 216 10*3/uL (140-440)
[2024-11-05 15:05] VITALS: BP 123/83
[2024-11-05 15:52] VITALS: PULSE 78; RESP 16; TEMP 98.6
== END 2024-11-05 16:02 | disposition home or self-care (01) ==
LOC: EC 13:07
DX: R56.9 Unspecified convulsions (principal); Z88.7 Allergy status to serum and vaccine; Z91.041 Radiographic dye allergy status
CPT/HCPCS: 36415; 70450; 72125; 80053; 83735; 84484; 85025; 85610; 85730; 93005; 99285

== ENCOUNTER 2024-11-05 16:12 | Inpatient (IN) | payer MEDICARE ==
[2024-11-05] MEDS: levETIRAcetam IV 500 MG/5 ML VIAL IVP STA (16:43)
[2024-11-05] MEDS: LORazepam 1 MG/0.5 ML VIAL IV STA (17:52)
--- NOTE | 2024-11-05 18:00 | ED ---
General Adult HPI - General Chief complaint: Seizure Stated complaint: Seizure Time Seen by Provider: 11/05/24 16:25 Source: patient, family, RN notes reviewed, old records reviewed Mode of arrival: wheelchair Limitations: altered mental status - History of Present Illness Initial comments: This is an 84-year-old male who was seen in the emergency department earlier and diagnosed with new onset seizures and was sent home. Patient was out in the car in the parking lot and he had another seizure and was brought in. Patient was postictal on arrival but shortly thereafter came back to almost his baseline and was able to converse. Patient again has second seizure on this visit and patient was given 1500 of Keppra at this time. Patient denies any headache Patient denies numbness weakness. Patient denies any new complaints - Related Data Home Medications Medication Instructions Recorded Confirmed Apixaban [Eliquis] 5 mg PO BID@0900,209902/16/24 11/05/24 Vibegron [Gemtesa] 75 mg PO DAILY@89902/16/24 11/05/24 Levothyroxine Sodium [Synthroid] 137 mcg PO DAILY@59910/26/24 11/05/24 Dapagliflozin Propanediol [Farxiga] 10 mg PO DAILY@89911/05/24 11/05/24 Furosemide [Lasix] 40 mg PO DAILY@59911/05/24 11/05/24 HYDROcodone/APAP 5-325MG [[place] 1 tab PO Q6HR PRN 11/05/24 11/05/24 5-325] Hyoscyamine Sulfate [Levbid] 0.375 mg PO BID@0900,2100 11/05/24 11/05/24 Omeprazole 20 mg PO DAILY@89911/05/24 11/05/24 Potassium Chloride ER [K-Dur 20] 20 meq PO DAILY@89911/05/24 11/05/24 Previous Rx's Medication Instructions Recorded Acetaminophen Tab [Tylenol] 325 mg PO Q6HR PRN tab 10/31/24 Ipratropium-Albuterol Nebulize 3 ml INHALATION RT-Q4H PRN each 10/31/24 [Duoneb 0.5 mg-3 mg/3 ml Soln] Allergies Allergy/AdvReac Type Severity Reaction Status Date / Time Iodinated Contrast Media AdvReac Chest Pain Verified 11/05/24 16:22 tetanus immune globulin AdvReac Chest Pain Verified 11/05/24 16:22 Review of Systems ROS Statement: Those systems with pertinent positive or pertinent negative responses have been documented in the HPI. ROS Other: All systems not noted in ROS Statement are negative. Past Medical History Past Medical History: Atrial Fibrillation, Hypertension, Sleep Apnea/CPAP/BIPAP Additional Past Medical History / Comment(s): Previous TAVR for Aortic valve disease History of Any Multi-Drug Resistant Organisms: None Reported Past Surgical History: Cardiac Valve Replacement, Heart Catheterization, Pro state Surgery Additional Past Surgical History / Comment(s): TAVR in 2021 Past Anesthesia/Blood Transfusion Reactions: No Reported Reaction Past Psychological History: Anxiety Smoking Status: Former smoker Past Alcohol Use History: None Reported Past Drug Use History: None Reported - Past Family History Mother Family Medical History: Hypertension General Exam - General Exam Comments Initial Comments: GENERAL: Patient is well-developed and well-nourished. Patient is nontoxic and well- hydrated and is in mild distress. ENT: Neck is soft and supple. No significant lymphadenopathy is noted. Oropharynx is clear. Moist mucous membranes. Neck has full range of motion without eliciting any pain. EYES: The sclera were anicteric and conjunctiva were pink and moist. Extraocular movements were intact and pupils were equal round and reactive to light. Eyelids were unremarkable. PULMONARY: Unlabored respirations. Good breath sounds bilaterally. No audible rales rhonchi or wheezing was noted. CARDIOVASCULAR: There is a regular rate and rhythm without any murmurs gallops or rubs. ABDOMEN: Soft and nontender with normal bowel sounds. SKIN: Skin is clear with no lesions or rashes and otherwise unremarkable. NEUROLOGIC: Patient is postictal currently MUSCULOSKELETAL: Normal extremities with adequate strength and full range of motion. No lower extremity swelling or edema. No calf tenderness. LYMPHATICS: No significant lymphadenopathy is noted PSYCHIATRIC: Unable to assess Limitations: altered mental status Course Vital Signs 11/05/24 11/05/24 11/05/24 16:21 16:40 17:00 Temperature 97.5 F L 97.4 F L Pulse Rate 90 86 96 Respiratory 17 14 12 Rate Blood Pressure 119/76 106/67 116/70 O2 Sat by Pulse 98 100 100 Oximetry Medical Decision Making - Medical Decision Making EKG is interpreted by myself her EKG shows atrial fibrillation at 92 bpm QRS 105 QT interval 381 QTc is 431. Was pt. sent in by a medical professional or institution (JOE Martino, SILVERSMITH APPRENTICE, urgent care, hospital, or alf...) When possible be specific @ -No Did you speak to anyone other than the patient for history (EMS, parent, family, police, friend...)? What history was obtained from this source @ -No Did you review nursing and triage notes (agree or disagree)? Why? @ -I reviewed and agree with nursing and triage notes Were old charts reviewed (outside hosp., previous admission, EMS record, old EKG, old radiological studies, urgent care reports/EKG's, alf records)? Report findings @ -No old charts were reviewed Differential Diagnosis? @ -Differential Seizure: Recurrent seizure disorder, febrile seizure, alcohol withdrawal, stimulants, meningitis, encephalitis, intercranial hemorrhage, intracranial tumor, stroke, eclampsia, thyrotoxicosis, hypocalcemia, hyponatremia, hypernatremia, hypomagnesemia, psychogenic, this is not meant to be an all-inclusive list. EKG interpreted by me (3pts min.). @ -As above X-rays interpreted by me (1pt min.). @ -None done CT interpreted by me (1pt min.). @ -None done U/S interpreted by me (1pt. min.). @ -None done What testing was considered but not performed or refused? (CT, X-rays, U/S, labs)? Why? @ -None What meds were considered but not given or refused? Why? @ -None Did you discuss the management of the patient with other professionals (professionals i.e. JOE Martino, SILVERSM[employer] APPRENTICE, lab, RT, psych nurse, social scientist, general teller, teacher, hospital chief executive officer, case picker)? Give summary @ -I spoke [place] [facility] [place] to admit the patient admit the patient wrote admitting orders Was smoking cessation discussed for >3mins.? @ -No Was critical care preformed (if so, how long)? @ -35 minutes Were there social determinants of health that impacted care today? How? (Homelessness, low income, unemployed, alcoholism, drug addiction, transportation, low edu. Level, literacy, decrease access to med. care, retirement, rehab)? @ -No Was there de-escalation of care discussed even if they declined (Discuss DNR or withdrawal of care, Hospice)? DNR status @ -No What co-morbidities impacted this encounter? (DM, HTN, Smoking, COPD, CAD, Cancer, CVA, ARF, Chemo, Hep., AIDS, mental health diagnosis, sleep apnea, mor bid obesity)? @ -None Was patient admitted / discharged? Hospital course, mention meds given and route, prescriptions, significant lab abnormalities, going to OR and other pertinent info. @ -Patient had 2 seizures on this visit. Patient was given Keppra 1500 and fluids. Patient was also given 0.5 of Ativan once he came out of the postictal state and was able to converse and stated he felt a little anxious Undiagnosed new problem with uncertain prognosis? @ -No Drug Therapy requiring intensive monitoring for toxicity (Heparin, Nitro, Insulin, Cardizem)? @ -No Were any procedures done? @ -No Diagnosis/symptom? @ -Status epilepticus Acute, or Chronic, or Acute on Chronic? @ -Acute Uncomplicated (without systemic symptoms) or Complicated (systemic symptoms)? @ -Complicated Side effects of treatment? @ -No Exacerbation, Progression, or Severe Exacerbation? @ -No Poses a threat to life or bodily function? How? (Chest pain, [place], [place], pneumonia, PE, COPD, DKA, ARF, appy, cholecystitis, CVA, Diverticulitis, Homicidal, Suicidal, threat to staff... and all critical care pts) @ -Yes this can lead to more seizures and possibly Disposition Clinical Impression: Status epilepticus Disposition: ADMITTED IP TO THIS [facility] Instructions (If sedation given, give patient instructions): Seizure/Epilepsy Discharge Instructions & Follow-Up Referrals: Juan Carlos Arnold DO [Primary Care Provider] - 1-2 days Time of Disposition: 18:00
[2024-11-05] MEDS ORDERED: LORazepam 1 MG/0.5 ML VIAL IV PRN (18:04)
[2024-11-05] MEDS: SODIUM CHLORIDE 0.9% 1,000 ML IV ONE (18:55)
[2024-11-06] MEDS ORDERED: IPRATROPIUM-ALBUTEROL 3 ML NEB INHALATION PRN (09:52)
[2024-11-06] MEDS: levETIRAcetam IV 500 MG/5 ML VIAL IVP SCH ×2 (09:54→20:32)
[2024-11-06] MEDS: PANTOPRAZOLE 40 MG/10 ML VIAL IVP SCH (11:15)
[2024-11-06] MEDS: APIXABAN 5 MG TAB PO SCH (11:16)
[2024-11-06] MEDS: ACETAMINOPHEN TAB 325 MG TAB PO PRN (11:17)
--- NOTE | 2024-11-06 12:27 | P.HPIM ---
History of Present Illness H&P Date: 11/06/24 This is an 84-year-old gentleman with past medical history significant [facility] aortic valve disease, chronic atrial fibrillation, hypertension, prostate cancer with prostatectomy, hypothyroidism and multiple other medical issues. [place] in [place]it ,admitted 10/26/2024 with unresponsiveness, status post mechanical fall, syncope, etiology unclear, suspecting cardiac in a patient with bradycardia. Initially required mechanical ventilation during this visit for hypoxic, hypercapnic respiratory failure as well as pressor support for hypotension. Sustained left forehead soft tissue hematoma;right thigh hematoma 10 x 4 cm, skin abrasions left hand, elbow and forehead. Significantly improved and patient was discharged to [facility] subacute rehab on 10/31/2024. Yesterday patient was sent from [facility] with 3 minutes of seizure-like activity reported as postictal, A&O x 0. Patient apparently had fallen out of bed, staff heard a loud bang and discovered him on the floor shaking. Blood pressure at the time of the incident was reported low, in the 70s per [facility] chart; previously patient had been hypertensive. Denied any lightheadedness, dizziness or focal deficits. Denied chest pain, palpitations or shortness of breath. And patient was brought into the ER. Denied abdominal pain, unknown if patient was incontinent of stool or u rine. Patient was worked up and apparently discharged back to the subacute rehab.-Unable to view their discharge instructions/medications. Later yesterday afternoon patient brought in again for recurrent seizure activity, received Keppra with neurology consulted. At this time patient continued to deny lightheadedness, dizziness or focal deficits. Maintenance Keppra initiated along with the prolonged EEG x 1 hour ordered after discussing with neurology. Most recent EEG completed on last admission ,10/27/2024 reported abnormal due to background slowing and moderate to severe degree, suggestive of generalized cerebral dysfunction seen with toxic metabolic encephalopathy related to diffuse structural brain abnormality no elliptic form activity seen. Presence of some sporadic triphasic waves. Head/C-spine CT reported no acute intracranial process, nonspecific white matter changes likely secondary to chronic small vessel ischemic disease, left forehead scalp edema no evidence for fracture, no evidence of cervical spine fracture, moderate multilevel degenerative disc disease with large disc osteophyte complex worse at C4-C5 as seen on prior. EKG reported atrial fibrillation with controlled ventricular rate. 11/07/2024 evaluated by neurology with Keppra dose increased. No further seizure activity reported. Continuous EEG monitoring for greater than 1 hour completed yesterday reported mildly abnormal EEG due to presence of mild background slowing and presence of sporadic frontal rhythm delta activity suggestive of generalized cerebral dysfunction as can be seen with encephalopathy. No focal generalized or epileptiform activity seen. No electrographic seizure recorded. Telemetry A-fib with controlled ventricular rate. complaining this morning of dizziness only occurring while lying in bed with turning his head from [id number]. Brain MRI pending. Denies chest pain, palpitations or shortness of breath. Review of Systems ROS Statement: Those systems with pertinent positive or pertinent negative responses have been documented in the HPI. ROS Other: All systems not noted in ROS Statement are negative. Past Medical History Past Medical History: Atrial Fibrillation, Hypertension, Sleep Apnea/CPAP/BIPAP Additional Past Medical History / Comment(s): Previous TAVR for Aortic valve disease History of Any Multi-Drug Resistant Organisms: None Reported Past Surgical History: Cardiac Valve Replacement, Heart Catheterization, Prostate Surgery Additional Past Surgical History / Comment(s): TAVR in 2021 Past Anesthesia/Blood Transfusion Reactions: No Reported Reaction Past Psychological History: Anxiety Smoking Status: Former smoker Past Alcohol Use History: None Reported Past Drug Use History: None Reported - Past Family History Mother Family Medical History: Hypertension Medications and Allergies Home Medications Medication Instructions Recorded Confirmed Type Apixaban [Eliquis] 5 mg PO BID@0900,2100 02/16/24 11/05/24 History Vibegron [Gemtesa] 75 mg PO DAILY@0900 02/16/24 11/05/24 History Levothyroxine Sodium [Synthroid] 137 mcg PO DAILY@0610/26/24 11/05/24 History Acetaminophen Tab [Tylenol] 325 mg PO Q6HR PRN tab 10/31/24 11/05/24 Rx Ipratropium-Albuterol Nebulize 3 ml INHALATION RT-Q4H PRN each 10/31/24 11/05/24 Rx [Duoneb 0.5 mg-3 mg/3 ml Soln] Dapagliflozin Propanediol [Farxiga] 10 mg PO DAILY@0900 11/05/24 11/05/24 History Furosemide [Lasix] 40 mg PO DAILY@0600 11/05/24 11/05/24 History HYDROcodone/APAP 5-325MG [[place] 1 tab PO Q6HR PRN 11/05/24 11/05/24 History 5-325] Hyoscyamine Sulfate [Levbid] 0.375 mg PO BID@0900,2100 11/05/24 11/05/24 History Omeprazole 20 mg PO DAILY@0900 11/05/24 11/05/24 History Potassium Chloride ER [K-Dur 20] 20 meq PO DAILY@0900 11/05/24 11/05/24 History Allergies Allergy/AdvReac Type Severity Reaction Status Date / Time Iodinated Contrast Media AdvReac Chest Pain Verified 11/05/24 16:22 tetanus immune globulin AdvReac Chest Pain Verified 11/05/24 16:22 Physical Exam Vitals: Vital Signs Temp Pulse Resp BP Pulse Ox 11/06/24 11:00 75 20 115/75 96 11/06/24 10:00 65 20 132/65 98 11/06/24 09:00 75 20 130/60 98 11/06/24 07:29 97.5 F L 64 16 125/78 97 11/06/24 04:55 66 18 108/84 97 11/06/24 03:23 62 18 96/86 99 11/06/24 01:05 71 18 114/87 96 11/05/24 22:00 71 18 82/57 97 11/05/24 20:00 77 19 95/61 95 11/05/24 19:00 73 20 97/65 100 11/05/24 18:00 87 20 98/57 96 11/05/24 17:31 81 20 118/65 96 11/05/24 17:00 97.4 F L 96 12 116/70 100 11/05/24 16:40 86 14 106/67 100 11/05/24 16:21 97.5 F L 90 17 119/76 98 Intake and Output 11/05/24 11/06/24 11/06/24 22:59 06:59 14:59 Other: Weight 90.718 kg VITAL SIGNS: [Reviewed] GENERAL: Lying in bed, alert and oriented x 3, no acute distress. HEENT: Normocephalic ,conjunctivae normal. eyes normal. mmm. NECK: Supple, no JVD. CARDIOVASCULAR: S1, S2. irregular. Systolic murmur RESPIRATION: Unlabored, equal air entry, breath sounds CTA ABDOMEN: Soft, nontender , nondistended, no guarding.+BS EXTREMITIES: Skin abrasions, improving right thigh hematoma,positive edema,peripheral pulses intact PSYCHIATRY/ NERVOUS SYSTEM: Cranial nerves II through XII grossly intact. Strength and sensation grossly intact. Skin: Warm and dry, multiple skin abrasions. Results CBC & Chem 7: 11/07/24 06:53 11/07/24 06:53 Assessment and Plan Assessment: New onset seizure activity Recently admitted 10/26/2024 with unresponsiveness, status post mechanical fall, syncope, etiology unclear, suspecting cardiac in a patient with bradycardia, with beta-edwar placed on hold. Initially required mechanical ventilation during this visit for hypoxic, hypercapnic respiratory failure as well as pressor support for hypotension. Sustained left forehead soft tissue hematoma;right thigh hematoma 10 x 4 cm, skin abrasions left hand, elbow and forehead. CAD, history of aortic valve disease with TAVR at [facility] Chronic A-fib on Eliquis Hypothyroidism History of prostate cancer with prostatectomy Possible obstructive sleep apnea, will require sleep study outpatient Morbid obesity, BMI 32 Questionable dementia, on Aricept Plan: Continue on current medication regimen ,monitoring and symptomatic treatment. Maintain seizure precautions,Keppra. Anticoagulated on Eliquis. Neurology workup in progress, brain MRI pending. Reinforced No driving for 6 months unless seizure-free, climbing ladders, operating dangerous machinery or unsupervised swimming. The impression and plan of care has been dictated as directed. : I performed a history and examination of this patient, discussed the same with the dictator. I agree with the dictator's note ,documented as a scribe. Any additional findings or plans will be noted.
--- NOTE | 2024-11-06 15:38 | P.CNNES ---
History of Present Illness Consult date: 11/06/24 Requesting physician: Arthur Dyer Reason for Consult: Status epilepticus new onset History of Present Illness: Patient is a 84-year-old male was brought to the hospital yesterday at 4:12 PM by ambulance for possible seizure. Patient was recently seen in hospital consultation on 10/27/2024 for possible unwitnessed fall and unresponsiveness. At that time patient was found to have significant bradycardia, elevated ammonia level. EEG showed background slowing of moderate to severe degree with some triphasic waves. Patient was not placed on any antiepileptic medication. He was discharged home on 10/31/2024 to the [facility] at noon. Patient's daughter states that he was doing well, walking with a walker. Yesterday at around noon, the staff heard a crash in the event in, patient was on the right side having a seizure, that lasted for about 3 minutes. They called the ambulance. Patient was brought to the hospital, where he underwent CT head and blood workup, which were normal. ED staff cleared the patient and he was taken back in private car to the [facility]. However before she dropped him to the [facility], he had a seizure that lasted for about 2 minutes. She brought him back to the ER and in the triage, patient had a third seizure, which also lasted for about 2 to 3 minutes. He desaturated down to 40s. He was not waking up. Each seizure starts with making some sound and then his mouth starts jerking and that he stiffens up and then has frothing. He then becomes limp and is "out of it" for some time. Patient was given loading dose of Keppra 1500 mg in the ER yesterday at 4 PM. Patient has not had any further seizures since arrival to the hospital. As per EMS flowsheet member arrived, patient was laying on the floor of his room. Staff states at 12:15 AM they heard a loud thud and came directly into patient's room. Staff states patient was on the floor with what appeared to be tonic-clonic movements lasted approximately 3 minutes, seizing at 12:18 AM. Patient was alert and oriented x 0. At baseline he is alert and oriented x 4. When EMS arrived, he was oriented x 3. He was found to have an abrasion on the back of his head. Bleeding was minimal. Patient also on anticoagulant for A- fib. Blood glucose was 156. Patient's vitals were blood pressure 119/66, pulse rate 88 respiration 18 saturation 96%. Patient had a CT head performed yesterday which revealed no acute intracranial process. Nonspecific white matter changes, likely secondary to chronic small vessel ischemic disease. Left forehead scalp edema. No fracture. CT of the cervical spine showed no fracture. Moderate multilevel degenerative disc disease with large disc osteophyte complexes worse at C4-5. Patient at present remembers about his previous admission [place] he woke up in the hospital. He states that the same thing happened this time and he woke up again in the hospital. He does not remember details. Vital signs on arrival blood pressure 119/76, pulse 90 temperature 97.5. Patient has been afebrile. EKG showed atrial fibrillation, with heart rate of 92. Blood test showed WBC 11.31, hemoglobin 12.2, platelets 216. INR 1.2. CMP is normal. Ammonia 40 on 10/26/2024 CK 33 TSH normal. UA negative. Urine drug screen negative. Review of Systems All pertinent positive and negative review of systems mentioned in the HPI, otherwise unremarkable. No pacemaker. Past Medical History Past Medical History: Atrial Fibrillation, Hypertension, Sleep Apnea/CPAP/BIPAP Additional Past Medical History / Comment(s): Previous TAVR for Aortic valve disease History of Any Multi-Drug Resistant Organisms: None Reported Past Surgical History: Cardiac Valve Replacement, Heart Catheterization, Prostate Surgery Additional Past Surgical History / Comment(s): TAVR in 2021 Past Anesthesia/Blood Transfusion Reactions: No Reported Reaction Past Psychological History: Anxiety Smoking Status: Former smoker Past Alcohol Use History: None Reported Past Drug Use History: None Reported - Past Family History Mother Family Medical History: Hypertension Medications and Allergies Home Medications Medication Instructions Recorded Confirmed Type Apixaban [Eliquis] 5 mg PO BID@0900,2100 02/16/24 11/05/24 History Vibegron [Gemtesa] 75 mg PO DAILY@0900 02/16/24 11/05/24 History Levothyroxine Sodium [Synthroid] 137 mcg PO DAILY@0600 10/26/24 11/05/24 History Acetaminophen Tab [Tylenol] 325 mg PO Q6HR PRN tab 10/31/24 11/05/24 Rx Ipratropium-Albuterol Nebulize 3 ml INHALATION RT-Q4H PRN each 10/31/24 11/05/24 Rx [Duoneb 0.5 mg-3 mg/3 ml Soln] Dapagliflozin Propanediol [Farxiga] 10 mg PO DAILY@0900 11/05/24 11/05/24 History Furosemide [Lasix] 40 mg PO DAILY@0600 11/05/24 11/05/24 History HYDROcodone/APAP 5-325MG [[place] 1 tab PO Q6HR PRN 11/05/24 11/05/24 History 5-325] Hyoscyamine Sulfate [Levbid] 0.375 mg PO BID@0900,2100 11/05/24 11/05/24 History Omeprazole 20 mg PO DAILY@0911/05/24 11/05/24 History Potassium Chloride ER [K-Dur 20] 20 meq PO DAILY@0911/05/24 11/05/24 History Allergies Allergy/AdvReac Type Severity Reaction Status Date / Time Iodinated Contrast Media AdvReac Chest Pain Verified 11/05/24 16:22 tetanus immune globulin AdvReac Chest Pain Verified 11/05/24 16:22 Physical Examination - Vital Signs Vital Signs: Vital Signs Temp Pulse Resp BP Pulse Ox 11/06/24 12:00 67 16 140/90 98 11/06/24 11:00 75 20 115/75 96 11/06/24 10:00 65 20 132/65 98 11/06/24 09:00 75 20 130/60 98 11/06/24 07:29 97.5 F L 64 16 125/78 97 11/06/24 04:55 66 18 108/84 97 11/06/24 03:23 62 18 96/86 99 11/06/24 01:05 71 18 114/87 96 11/05/24 22:00 71 18 82/57 97 11/05/24 20:00 77 19 95/61 95 11/05/24 19:00 73 20 97/65 100 11/05/24 18:00 87 20 98/57 96 11/05/24 17:31 81 20 118/65 96 11/05/24 17:00 97.4 F L 96 12 116/70 100 11/05/24 16:40 86 14 106/67 100 11/05/24 16:21 97.5 F L 90 17 119/76 98 Intake and Output 11/05/24 11/06/24 11/06/24 22:59 06:59 14:59 Other: Weight 90.718 kg Patient is an elderly male, very pleasant, in no acute distress. Patient is alert awake oriented to time place and person. He knows it is October 2024 and that he is in [facility] imported on [place]. He knows his full date of . Speech and language functions are normal. Patient can name and repeat very well. No aphasia or dysarthria. Attention, concentration and fund of knowledge is adequate. On cranial nerve examination, pupils are equal, round and reacting to light, visual laird are full on confrontation, with no neglect on double simultaneous stimulation. Extraocular muscles are intact with no nystagmus. Face is symmetric, tongue protrudes to the midline. Palatal elevation and sensation normal, hearing and shoulder shrug normal, facial sensation normal. No evidence of tongue bite mónica. On muscle strength testing, there is no pronator drift and the strength is normal in arms and legs distally and proximally, except deltoids which are about 5-. Deep tendon reflexes are symmetric 1 in the upper limbs, not checked at the legs because of recent hematoma. Sensory to touch is equal with no neglect on double simultaneous stimulation. Cerebellar function showed no ataxia for [id number] testing. No dysdiadochokinesia. No ataxia for [id number] testing on either side. Tone and bulk of muscles normal. Gait deferred.. On general examination, there is no carotid bruit or murmur, S1-S2 audible. Chest is clear on consultation. Abdomen is soft nontender. No organomegaly, bowel sounds present. Peripheral pulses are present. No peripheral edema. Assessment and Plan Assessment: * New onset seizures. Patient had an unwitnessed fall with unresponsiveness on 10/26/2024. It was felt to be related to arrhythmia. Now patient has presented with recurrent seizures x 3. * Chronic atrial fibrillation, on Eliquis * History of TAVR * History of prostate cancer with previous prostatectomy * Hypothyroidism * Hypertension * Sleep apnea Plan: * MRI of the brain with and without contrast rule out structural abnormality. * Stat EEG was performed, for 1 hour. We will review the results. * Patient started on Keppra. We will increase Keppra to 750 mg twice daily. * No driving for 6 months unless seizure-free, climbing ladders, operating dangerous machinery or unsupervised swimming. * 2D echo from 10/27/2024 revealed LVEF 60%. No obvious regional wall motion abnormalities. Moderately increased left atrial volume. Right atrium not well-visualized. Normally functioning bioprosthetic aortic valve without stenosis. * Continue Eliquis for stroke prevention. * Neurology will follow. Thank you for the consult.
[2024-11-06] MEDS: HYOSCYAMINE SULFATE 0.375 MG TAB.ER.12H PO SCH (22:31)
--- NOTE | 2024-11-06 23:03 | EEG ---
ELECTROENCEPHALOGRAM REPORT PREAMBLE: This is an 84-year-old male with new-onset seizure. This is a prolonged EEG performed for 1 hour. EEG FINDINGS: This is a 21-channel digital EEG recorded with video component, utilizing 10/20 international system with referential and bipolar montages. The recording start time is 10:22 a.m. on 11/06/2024 and recording end time is 11:23 a.m. on 11/06/2024. Background consists of well developed, well regulated, moderate voltage activity in mixed frequencies of 7 Hz theta with 8 Hz alpha activity seen in bihemispheric region. Background is posterior dominant and is reactive to eye opening and closing. Sporadic frontal intermittent rhythmic delta activity was seen. Photic driving response was not seen. Different stages of sleep were not seen. No focal or generalized epileptiform activity was seen. IMPRESSION: This is a mildly abnormal EEG due to presence of mild background slowing and presence of sporadic frontal rhythmic delta activity. This is suggestive of generalized cerebral dysfunction as can be seen with encephalopathy. No focal, generalized, or epileptiform activity was seen. No electrographic seizure was recorded. MMODL / IJN: [id number] /
[2024-11-07] MEDS: LEVOTHYROXINE 137 MCG TAB PO SCH (06:30)
[2024-11-07 07:33] LABS: HCT 37.6 % (39.6-50.0); HGB 11.9 g/dL (13.0-17.0); MCH 30.3 pg (27.0-32.0); MCHC 31.6 g/dL (32.0-37.0); MCV 95.7 fL (80.0-97.0); Platelet Count 214 10*3/uL (140-440); RBC 3.93 10*6/uL (4.40-5.60); RDW 14.9 % (11.5-14.5); WBC 9.03 10*3/uL (4.50-10.00)
[2024-11-07 07:47] LABS: African American GFR (CKD) 79 (>60 ml/min/1.73 sqM); Anion Gap 7 mmol/L; Blood Urea Nitrogen 18 mg/dL (9-20); Calcium 8.6 mg/dL (8.4-10.2); Carbon Dioxide 27 mmol/L (22-30); Chloride 108 mmol/L (98-107); Glucose 84 mg/dL (74-99); Non-African American GFR(CKD) 68 (>60 ml/min/1.73 sqM); Potassium 4.0 mmol/L (3.5-5.1); Sodium 142 mmol/L (137-145)
[2024-11-07] MEDS: PATIENT'S OWN (Vibegron [Gemtesa] 75 MG Tablet) PO SCH (09:49)
[2024-11-07] MEDS: DAPAGLIFLOZIN PROPANEDIOL 10 MG TABLET PO SCH (09:53)
--- NOTE | 2024-11-07 12:00 | P.PN ---
Subjective Progress Note Date: 11/07/24 H&P Date: 11/06/24 This is an 84-year-old gentleman with past medical history significant [facility] aortic valve disease, chronic atrial fibrillation, hypertension, prostate cancer with prostatectomy, hypothyroidism and multiple other medical issues. [place] in [place]it ,admitted 10/26/2024 with unresponsiveness, status post mechanical fall, syncope, etiology unclear, suspecting cardiac in a patient with bradycardia. Initially required mechanical ventilation during this visit for hypoxic, hypercapnic respiratory failure as well as pressor support for hypotension. Sustained left forehead soft tissue hematoma;right thigh hematoma 10 x 4 cm, skin abrasions left hand, elbow and forehead. Significantly improved and patient was discharged to [facility] subacute rehab on 10/31/2024. Yesterday patient was sent from [facility] with 3 minutes of seizure-like activity reported as postictal, A&O x 0. Patient apparently had fallen out of bed, staff heard a loud bang and discovered him on the floor shaking. Blood pressure at the time of the incident was reported low, in the 70s per [facility] chart; previously patient had been hypertensive. Denied any lightheadedness, dizziness or focal deficits. Denied chest pain, palpitations or shortness of breath. And patient was brought into the ER. Denied abdominal pain, unknown if patient was incontinent of stool or urine. Patient was worked up and apparently discharged back to the subacute rehab.-Unable to view their discharge instructions/medications. Later yesterday afternoon patient brought in again for recurrent seizure activity, received Keppra with neurology consulted. At this time patient continued to deny lightheadedness, dizziness or focal deficits. Maintenance Keppra initiated along with the prolonged EEG x 1 hour ordered after discussing with neurology. Most recent EEG completed on last admission ,10/27/2024 reported abnormal due to background slowing and moderate to severe degree, suggestive of generalized cerebral dysfunction seen with toxic metabolic encephalopathy related to diffuse structural brain abnormality no elliptic form activity seen. Presence of some sporadic triphasic waves. Head/C-spine CT reported no acute intracranial process, nonspecific white matter changes likely secondary to chronic small vessel ischemic disease, left forehead scalp edema no evidence for fracture, no evidence of cervical spine fracture, moderate multilevel degenerative disc disease with large disc osteophyte complex worse at C4-C5 as seen on prior. EKG reported atrial fibrillation with controlled ventricular rate. 11/07/2024 Objective - Vital Signs Vital signs: Vital Signs Temp 98.0 F 11/07/24 09:52 Pulse 82 11/07/24 09:52 Resp 18 11/07/24 09:52 BP 126/69 11/07/24 09:52 Pulse Ox 97 11/07/24 09:52 FiO2 Intake & Output 11/06/24 11/07/24 11/07/24 18:59 06:59 18:59 Intake Total 220 180 Balance 220 180 Weight 90.718 kg 82.7 kg Intake: IV 20 Invasive Line 1 20 Oral 200 180 Other: Voiding Method Toilet # Voids 1 - Exam VITAL SIGNS: [Reviewed] GENERAL: Obese, sitting up, alert and oriented x 3, no acute distress. HEENT: Left forehead hematoma/abrasion. Conjunctivae normal. eyes normal. NECK: Supple, no JVD. CARDIOVASCULAR: S1, S2. irregular. Systolic murmur RESPIRATION: Unlabored, equal air entry, breath sounds CTA ABDOMEN: Soft, nontender ,no masses palpable. No organomegaly .+BS EXTREMITIES: Skin abrasions,right thigh hematoma,positive edema,peripheral pulses intact PSYCHIATRY/ NERVOUS SYSTEM: Cranial nerves II through XII grossly intact. Skin: Warm and dry, multiple skin abrasions. - Labs CBC & Chem 7: 11/07/24 06:53 11/07/24 06:53 Labs: Abnormal Lab Results - Last 24 Hours (Table) 11/07/24 11/07/24 Range/Units 06:53 06:53 RBC 3.93 L (4.40-5.60) 10*6/uL Hgb 11.9 L (13.0-17.0) g/dL Hct 37.6 L (39.6-50.0) % MCHC 31.6 L (32.0-37.0) g/dL Chloride 108 H (98-107) mmol/L Assessment and Plan Assessment: New onset seizures Possible positional vertigo, new complaint of dizziness with turning of head [id number],while lying down. Recently admitted 10/26/2024 with unresponsiveness, status post mechanical fall, syncope, etiology unclear, suspecting cardiac in a patient with bradycardia, with beta-edwar placed on hold. Initially required mechanical ventilation during this visit for hypoxic, hypercapnic respiratory failure as well as pressor support for hypotension. Sustained left forehead soft tissue hematoma;right thigh hematoma 10 x 4 cm, skin abrasions left hand, elbow and fo rehead. CAD, history of aortic valve disease with TAVR at [facility] Chronic A-fib on Eliquis Hypothyroidism History of prostate cancer with prostatectomy Possible obstructive sleep apnea, will require sleep study outpatient Morbid obesity, BMI 32 Questionable dementia, on Aricept Plan: Continue on current medication regimen ,monitoring and symptomatic treatment. Maintain seizure precautions,Keppra. Anticoagulated on Eliquis. Neurology workup in progress, brain MRI pending. Reinforced No driving for 6 months unless seizure-free, climbing ladders, operating dangerous machinery or unsupervised swimming. The impression and plan of care has been dictated as directed. : I performed a history and examination of this patient, discussed the same with the dictator. I agree with the dictator's note ,documented as a scribe. Any additional findings or plans will be noted.
[2024-11-07] MEDS: LORazepam 1 MG/0.5 ML VIAL IV ONE (15:04)
--- NOTE | 2024-11-07 16:27 | MR ---
EXAMINATION TYPE: MR brain wo/w con DATE OF EXAM: 11/07/2024 3:58 PM COMPARISON: CT. CLINICAL INDICATION: Male, 84 years old with history of New onset seizures; PHH, New onset seizures TECHNIQUE: Multi planar, multi sequence imaging was performed through the brain including: T1, T2, In version recovery, susceptibility weighted imaging and gradient echo imaging and Diffusion weighted im aging. The patient was then given intravenous contrast and multi planar, T1 fat-saturation images wer e obtained. IV Contrast: 9 mL Gadobutrol FINDINGS: Encephalomalacia the right posterior cerebellar hemisphere. Moderate cerebral atrophy with proportional dilation of ventricular system. Diffusion-weighted imaging shows no evidence of restric elizabeth diffusion to suggest acute/subacute infarct. Intracranial arterial flow voids are maintained. Mid line structures show no abnormality. Scattered foci of high T2 signal intensity are seen within the p eriventricular white matter. The susceptibility weighted images reveal microhemorrhage in the left pa rietal/posterior frontal lobe. Foci of blooming artifact.. After administration of gadolinium, no abn ormal enhancement is seen. The bone marrow signal is within normal limits. Paranasal sinuses and mastoid air cells: Trace high T2 signal in the bilateral mastoid air cells. Visualized orbits: Orbital contents are intact. IMPRESSION: 1. No evidence of intracranial mass, acute/subacute infarct, or abnormal enhancement. 2. Nonspecific white matter changes, likely related to small vessel ischemic disease. 3. Mild atrophy changes with trace bilateral mastoid air cell effusions. [facility], , 11/07/2024 4:24 PM
--- NOTE | 2024-11-07 17:50 | P.PN ---
Subjective Progress Note Date: 11/07/24 Patient was seen for a follow-up. Patient is sitting comfortably in the recliner. He states that he had an episode of transient dizziness when he stood up. It lasted for just a brief moment. Otherwise doing well. Denies any side effect of medication. Vital signs are stable. Blood pressure 121/73. Objective - Vital Signs Vital signs: Vital Signs Temp 98.0 F 11/07/24 09:52 Pulse 82 11/07/24 09:55 Resp 18 11/07/24 09:52 BP 126/69 11/07/24 09:52 Pulse Ox 97 11/07/24 09:52 FiO2 Intake & Output 11/06/24 11/07/24 11/07/24 18:59 06:59 18:59 Intake Total 220 190 Balance 220 190 Weight 90.718 kg 82.7 kg Intake: IV 20 10 Invasive Line 1 20 10 Oral 200 180 Other: Voiding Method Toilet # Voids 1 - Exam Patient walking fairly stable without any assistive device. Slight stoop. Examination unchanged. - Labs CBC & Chem 7: 11/07/24 06:53 11/07/24 06:53 Labs: Abnormal Lab Results - Last 24 Hours (Table) 11/07/24 11/07/24 Range/Units 06:53 06:53 RBC 3.93 L (4.40-5.60) 10*6/uL Hgb 11.9 L (13.0-17.0) g/dL Hct 37.6 L (39.6-50.0) % MCHC 31.6 L (32.0-37.0) g/dL Chloride 108 H (98-107) mmol/L Assessment and Plan Assessment: * New onset seizures. Patient had an unwitnessed fall with unresponsiveness on 10/26/2024. It was felt to be related to arrhythmia. Now patient has presented with recurrent seizures x 3. * Chronic atrial fibrillation, on Eliquis * History of TAVR * History of prostate cancer with previous prostatectomy * Hypothyroidism * Hypertension * Sleep apnea Plan: * Await MRI of the brain with and without contrast rule out structural abnormality. * Prolonged EEG 11/06/2024 was mildly abnormal due to presence of background slowing and presence of sporadic frontal rhythmic delta activity. This is suggestive of generalized cerebral dysfunction as can be seen with encephalopathy. No focal, lateralized or epileptiform activity was seen. * Patient started on Keppra. We will increase Keppra to 750 mg twice daily. * No driving for 6 months unless seizure-free, climbing ladders, operating dangerous machinery or unsupervised swimming. * 2D echo from 10/27/2024 revealed LVEF 60%. No obvious regional wall motion abnormalities. Moderately increased left atrial volume. Right atrium not well-visualized. Normally functioning bioprosthetic aortic valve without stenosis. * Continue Eliquis for stroke prevention. * Neurology will follow. Thank you for the consult. Addendum #1: MRI of the brain revealed no evidence of intracranial mass, acute/subacute infarct or abnormal enhancement. Nonspecific white matter changes, likely related to small vessel ischemic disease. Mild atrophy changes with trace bilateral mastoid air cell effusion. For transient vertigo, we will check carotid Doppler. Neurologically clear for discharge with above recommendation. Patient to follow-up with neurologist outpatient. Addendum #2: Carotid Doppler revealed no significant flow-limiting stenosis based on velocities. Antegrade flow in both vertebral arteries. Neurologically clear for discharge.
--- NOTE | 2024-11-07 19:32 | US ---
EXAMINATION TYPE: US carotid duplex BILAT DATE OF EXAM: 11/07/2024 COMPARISON: NONE CLINICAL INDICATION: Male, 84 years old with history of Syncope versus seizure; syncope Additional History: .... TECHNIQUE: Grayscale, color Doppler and spectral Doppler evaluation of the bilateral carotid systems and vertebral arteries. Indirect Doppler criteria was utilized. FINDINGS: EXAM MEASUREMENTS: RIGHT: Peak Systolic Velocity (PSV) cm/sec ----- Right CCA: 54.0 ----- Right ICA: 50.9 ----- Right ECA: 110.0 ICA/CCA ratio: 0.9 RIGHT: End Diastole cm/sec ----- Right CCA: 0.0 ----- Right ICA: 0.0 ----- Right ECA: 13.8 LEFT: Peak Systolic Velocity (PSV) cm/sec ----- Left CCA: 52.8 ----- Left ICA: 102.0 ----- Left ECA: 68.3 ICA/CCA ratio: 1.9 LEFT: End Diastole cm/sec ----- Left CCA: 13.2 ----- Left ICA: 27.8 ----- Left ECA: 3.4 VERTEBRALS (direction of flow): Right Vertebral: Antegrade Left Vertebral: Antegrade Rhythm: Normal CERTIFIED ORTHOPTIST NOTES: slightly limited due to deep diving vessels. Small amount of plaque seen bilateral ly. No elevated velocities seen Color Doppler imaging shows patency with blood flow throughout the carotid artery. Spectral waveforms are within normal limits. IMPRESSION: 1. No significant flow-limiting stenosis based on velocities. Criteria for Assigning % of Stenosis / Diameter reduction (Estimation based on the indirect measurements of the internal carotid artery velocities (ICA PSV). 1. Normal (no stenosis)=ICA PSV < 180 cm/s: ratio < 2.0: ICA EDV<40 cm/s. 2. Less than 50% stenosis=ICA PSV < 180 cm/s: ratio < 2.0: ICA EDV<40 cm/s. 3. 50 to 69% stenosis=ICA PSV of 180 to 230 cm/s: ration 2.0 ? 4.0: ICA EDV 40-100 cm/s. PSV 125-180 cm/sec and ICA/CCA PSV Ratio ? 2.0 is also consistent with 50-69% stenosis 4. Greater than 70% stenosis to near occlusion= ICA PSV > 230 cm/s: ratio > 4.0: ICA EDV > 100 cm/s. 5. Near occlusion= ICA PSV velocities may be low or undetectable: variable ratio and ICA EDV. 6. Total occlusion=unable to detect flow. [facility], , 11/07/2024 7:30 PM
[2024-11-08 06:29] LABS: Glucose,Whole Blood 83 mg/dL (70-110)
--- NOTE | 2024-11-08 09:26 | P.PN ---
Subjective Progress Note Date: 11/08/24 H&P Date: 11/06/24 This is an 84-year-old gentleman with past medical history significant [facility] , aortic valve disease, chronic atrial fibrillation, hypertension, prostate cancer with prostatectomy, hypothyroidism and multiple other medical issues. [place] of blood in vomit ,admitted 10/26/2024 with unresponsiveness, status post mechanical fall, syncope, etiology unclear, suspecting cardiac in a patient with bradycardia. Initially required mechanical ventilation during this visit for hypoxic, hypercapnic respiratory failure as well as pressor support for hypotension. Sustained left forehead soft tissue hematoma;right thigh hematoma 10 x 4 cm, skin abrasions left hand, elbow and forehead. Significantly improved and patient was discharged to [facility] subacute rehab on 10/31/2024. Yesterday patient was sent from [facility] with 3 minutes of seizure-like activity reported as postictal, A&O x 0. Patient apparently had fallen out of bed, staff heard a loud bang and discovered him on the floor shaking. Blood pressure at the time of the incident was reported low, in the 70s per [facility] chart; previously patient had been hypertensive. Denied any lightheadedness, dizziness or focal deficits. Denied chest pain, palpitations or shortness of breath. And patient was brought into the ER. Denied abdominal pain, unknown if patient was incontinent of stool or urine. Patient was worked up and apparently discharged back to the subacute rehab.-Unable to view their discharge instructions/medications. Later yesterday afternoon patient brought in again for recurrent seizure activity, received Keppra with neurology consulted. At this time patient continued to deny lightheadedness, dizziness or focal deficits. Maintenance Keppra initiated along with the prolonged EEG x 1 hour ordered after discussing with neurology. Most recent EEG completed on last admission ,10/27/2024 reported abnormal due to background slowing and moderate to severe degree, suggestive of generalized cerebral dysfunction seen with toxic metabolic encephalopathy related to diffuse structural brain abnormality no elliptic form activity seen. Presence of some sporadic triphasic waves. Head/C-spine CT reported no acute intracranial process, nonspecific white matter changes likely secondary to chronic small vessel ischemic disease, left forehead scalp edema no evidence for fracture, no evidence of cervical spine fracture, moderate multilevel degenerative disc disease with large disc osteophyte complex worse at C4-C5 as seen on prior. EKG reported atrial fibrillation with controlled ventricular rate. 11/07/2024 seizure precautions maintained, continues on Keppra ,no further seizure activity reported. Lying in bed, complaining of dizziness only when lying down and turning head from [id number]. Denies chest pain, palpitations or sav rtness of breath. Vital signs stable. Neurology workup in progress, MRI pending. Prolonged EEG reported mildly abnormal due to presence of background slowing and presence of sporadic frontal rhythmic delta activity. This is suggestive of generalized cerebral dysfunction as can be seen with encep halopathy. No focal, lateralized or epileptiform activity was seen. No electrographic seizure was recorded. 11/08/2024 orthostatic vital signs pending. MRI reported no evidence of intracranial mass, acute/subacute infarct or abnormal enhancement, nonspecific white matter changes likely related to small vessel ischemic disease, mild atrophy changes of trace bilateral mastoid air cell effusion. Carotid Doppler reported no significant hemodynamic stenosis. Objective - Vital Signs Vital signs: Vital Signs Temp 97.6 F 11/08/24 04:48 Pulse 76 11/08/24 04:48 Resp 16 11/08/24 04:48 BP 139/86 11/08/24 04:48 Pulse Ox 96 11/08/24 04:48 FiO2 Intake & Output 11/07/24 11/08/24 11/08/24 18:59 06:59 18:59 Intake Total 380 20 Balance 380 20 Weight 82.1 kg Intake: IV 20 20 Invasive Line 1 20 10 Invasive Line 2 10 Oral 360 Other: Voiding Method Toilet Diaper # Voids 1 1 - Labs CBC & Chem 7: 11/07/24 06:53 11/07/24 06:53
[2024-11-08 11:28] VITALS: BP 126/82; PULSE 79; RESP 14; TEMP 97.9
[2024-11-08] MEDS: MECLIZINE 25 MG TAB PO STA (11:28)
--- NOTE | 2024-11-08 13:39 | P.DS ---
Providers Date of admission: 11/05/24 18:04 Expected date of discharge: 11/08/24 Attending physician: Juan Carlos Arnold Consults: 11/05/24 18:01 Consult Physician Urgent Consulting Provider: Rachel Jeffers Consult Reason/Comments: Status epilepticus new onset Do you want consulting provider notified?: Yes Primary care physician: Juan Carlos Arnold [place] [facility] Course: Final Diagnoses: New onset seizures Positional vertigo, new complaint of dizziness with turning of head [id number],while lying down. Patient and family now disclosing this actually is chronic. Recently admitted 10/26/2024 with unresponsiveness, status post mechanical fall, syncope, etiology unclear, suspecting cardiac in a patient with bradycardia, with beta-edwar placed on hold. Initially required mechanical ventilation during this visit for hypoxic, hypercapnic respiratory failure as well as pressor support for hypotension. Sustained left forehead soft tissue hematoma;right thigh hematoma 10 x 4 cm, skin abrasions left hand, elbow and forehead. CAD, history of aortic valve disease with TAVR at [facility] Chronic A-fib on Eliquis Hypothyroidism History of prostate cancer with prostatectomy Possible obstructive sleep apnea, will require sleep study outpatient Morbid obesity, BMI 32 Questionable dementia, on Aricept Obstructive sleep apnea, diagnosed many years ago, does not have a machine .outpatient sleep study recommended Hospital course:This is an 84-year-old gentleman with past medical history significant for AVR at [facility], aortic valve disease, chronic atrial fibrillation, hypertension, prostate cancer with prostatectomy, hypothyroidism and multiple other medical issues. [place] in vomit ,admitted 10/26/2024 with unresponsiveness, status post mechanical fall, syncope, etiology unclear, suspecting cardiac in a patient with bradycardia. Initially required mechanical ventilation during this visit for hypoxic, hypercapnic respiratory failure as well as pressor support for hypotension. Sustained left forehead soft tissue hematoma;right thigh hematoma 10 x 4 cm, skin abrasions left hand, elbow and forehead. Significantly improved and patient was discharged to [facility] subacute rehab on 10/31/2024. Yesterday patient was sent from [facility] with 3 minutes of seizure-like activity reported as postictal, A&O x 0. Patient apparently had fallen out of bed, staff heard a loud bang and discovered him on the floor shaking. Blood pressure at the time of the incident was reported low, in the 70s per [facility] chart; previously patient had been hypertensive. Denied any lightheadedness, dizziness or focal deficits. Denied chest pain, palpitations or shortness of breath. And patient was brought into the ER. Denied abdominal pain, unknown if patient was incontinent of stool or urine. Patient was worked up and apparently discharged back to the subacute rehab.-Unable to view their discharge instructions/medications. Later yesterday afternoon patient brought in again for recurrent seizure activity, received Keppra with neurology consulted. At this time patient continued to deny lightheadedness, dizziness or focal deficits. Maintenance Keppra initiated along with the prolonged EEG x 1 hour ordered after discussing with neurology. Most recent EEG completed on last admission ,10/27/2024 reported abnormal due to background slowing and moderate to severe degree, suggestive of generalized cerebral dysfunction seen with toxic metabolic encephalopathy related to diffuse structural brain abnormality no elliptic form activity seen. Presence of some sporadic triphasic waves. Head/C-spine CT reported no acute intracranial process, nonspecific white matter changes likely secondary to chronic small vessel ischemic disease, left forehead scalp edema no evidence for fracture, no evidence of cervical spine fracture, moderate multilevel degenerative disc disease with large disc osteophyte complex worse at C4-C5 as seen on prior. EKG reported atrial fibrillation with controlled ventricular rate. 11/07/2024 seizure precautions maintained, continues on Keppra ,no further seizure activity reported. Lying in bed, complaining of dizziness only when lying down and turning head from [id number]. Denies chest pain, palpitations or shortness of breath. Vital signs stable. Neurology workup in progress, MRI pending. Prolonged EEG reported mildly abnormal due to presence of background slowing and presence of sporadic frontal rhythmic delta activity. This is suggestive of generalized cerebral dysfunction as can be seen with enceph alopathy. No focal, lateralized or epileptiform activity was seen. No electrographic seizure was recorded. 11/08/2024 orthostatic vital signs negative per verbal report. MRI reported no evidence of intracranial mass, acute/subacute infarct or abnormal enhancement, nonspecific white matter changes likely related to small vessel ischemic disease, mild atrophy changes of trace bilateral mastoid air cell effusion. Carotid Doppler reported no significant hemodynamic stenosis. Sitting up on couch, denies chest pain, palpitations or shortness of breath. Denies lightheadedness, dizziness or focal deficits. Reports he had vertigo 6 years ago, did not use medical treatment at that time but did get the "life alarm". Also reports 6 years ago he was diagnosed with obstructive sleep apnea but quit using his CPAP machine as he was getting tangled in the tubing at night when he had to get up to go to the bathroom. Reports he has dozed off during activities. Recommend sleep study with Dr. Lan. Maintain seizure precautions ,reinforced no driving for 6 months seizure-free, climbing ladders, operating dangerous machinery or unsupervised swimming. Patient will be discharged on new medications of Keppra 750 mg p.o. twice daily as well as Antivert 12.5 3 times daily as needed dizziness as recommended per neurology. Patient has been cleared by neurology for discharge. Reevaluated by physical therapy and home with home care recommended at this time. Patient will be discharged home today in a stable condition with guarded prognosis. The impression and plan of care has been dictated as directed. : I performed a history and examination of this patient, discussed the same with the dictator. I agree with the dictator's note ,documented as a scribe. Any additional findings or plans will be noted. Patient Condition at Discharge: Stable Plan - Discharge Summary Discharge Rx Participant: No New Discharge Prescriptions: New levETIRAcetam [Keppra] 750 mg PO BID 30 Days #60 tab Meclizine HCl 12.5 mg PO TID PRN #60 tab PRN Reason: Vertigo Continue Vibegron [Gemtesa] 75 mg PO DAILY@0900 Potassium Chloride ER [K-Dur 20] 20 meq PO DAILY@0900 Omeprazole 20 mg PO DAILY@0900 Apixaban [Eliquis] 5 mg PO BID@0900,2099 Levothyroxine Sodium [Synthroid] 137 mcg PO DAILY@0600 Acetaminophen Tab [Tylenol] 325 mg PO Q6HR PRN tab PRN Reason: Fever And/ Or Pain Furosemide [Lasix] 40 mg PO DAILY@0600 Hyoscyamine Sulfate [Levbid] 0.375 mg PO BID@0900,2100 Dapagliflozin Propanediol [Farxiga] 10 mg PO DAILY@0900 #30 tab Discontinued Ipratropium-Albuterol Nebulize [Duoneb 0.5 mg-3 mg/3 ml Soln] 3 ml INHALATION RT-Q4H PRN each PRN Reason: Shortness Of Breath Or Wheezing HYDROcodone/APAP 5-325MG [[place] 5-325] 1 tab PO Q6HR PRN PRN Reason: Pain Discharge Medication List Apixaban [Eliquis] 5 mg PO BID@0900,209902/16/24 [History] Vibegron [Gemtesa] 75 mg PO DAILY@89902/16/24 [History] Levothyroxine Sodium [Synthroid] 137 mcg PO DAILY@59910/26/24 [History] Acetaminophen Tab [Tylenol] 325 mg PO Q6HR PRN tab 10/31/24 [Rx] Furosemide [Lasix] 40 mg PO DAILY@59911/05/24 [History] Hyoscyamine Sulfate [Levbid] 0.375 mg PO BID@899,209911/05/24 [History] Omeprazole 20 mg PO DAILY@89911/05/24 [History] Potassium Chloride ER [K-Dur 20] 20 meq PO DAILY@89911/05/24 [History] Dapagliflozin Propanediol [Farxiga] 10 mg PO DAILY@00 #30 tab 11/08/24 [Rx] Meclizine HCl 12.5 mg PO TID PRN #60 tab 11/08/24 [Rx] levETIRAcetam [Keppra] 750 mg PO BID 30 Days #60 tab 11/08/24 [Rx] Follow up Appointment(s)/Referral(s): Juan Carlos Arnold DO [Primary Care Provider] - 11/16/24 1:20 pm (Your appointment will be with Deborah) Josiah Bryan MD [STAFF PHYSICIAN] - 1 Week (Office closed, please call to make a follow-up appointment) Timoteo Hampton DO [STAFF PHYSICIAN] - 2 Weeks (Neurology; please call to set up a follow-up appointment) Patient Instructions/Handouts: Seizure/Epilepsy Discharge Instructions & Follow-Up Activity/Diet/Wound Care/Special Instructions: Seizure precautions,No driving for 6 months unless seizure-free, climbing ladders, operating dangerous machinery or unsupervised swimming. CBC, BMP, magnesium in 3 days Discharge Disposition: HOME WITH HOME HEALTH SERVICES
== END 2024-11-08 14:11 | disposition home health service (06) | DRG 101 ==
LOC: EC 16:12 → 3SCARD 18:04
PROVIDERS: ADMIT Family Medicine; ATTEND Family Medicine
DX: G40.901 Epilepsy, unspecified, not intractable, with status epilepticus (principal); E03.9 Hypothyroidism, unspecified; Z95.2 Presence of prosthetic heart valve; I10 Essential (primary) hypertension; I48.20 Chronic atrial fibrillation, unspecified; G47.30 Sleep apnea, unspecified; I25.10 Atherosclerotic heart disease of native coronary artery without angina pectoris; I35.9 Nonrheumatic aortic valve disorder, unspecified; S70.11XA Contusion of right thigh, initial encounter; S00.83XA Contusion of other part of head, initial encounter; S60.512A Abrasion of left hand, initial encounter; S50.312A Abrasion of left elbow, initial encounter; I95.9 Hypotension, unspecified; W06.XXXA Fall from bed, initial encounter; Z87.891 Personal history of nicotine dependence; Z79.890 Hormone replacement therapy; Z79.84 Long term (current) use of oral hypoglycemic drugs; Z79.899 Other long term (current) drug therapy; Z91.041 Radiographic dye allergy status; Z79.01 Long term (current) use of anticoagulants; Z85.46 Personal history of malignant neoplasm of prostate; Z90.79 Acquired absence of other genital organ(s); Z82.49 Family history of ischemic heart disease and other diseases of the circulatory system
CPT/HCPCS: 70553; 80048; 85027; 93880; 95813; 96361; 96374; 96375; 99291

== ENCOUNTER 2024-11-09 12:24 | Emergency (ER) | payer MEDICARE ==
[2024-11-09 12:33] VITALS: RESP 18
[2024-11-09] MEDS: ACETAMINOPHEN TAB 500 MG TAB PO STA (13:23)
[2024-11-09 13:42] LABS: Basophils # (A) 0.10 10*3/uL (0.00-0.10); Basophils % (A) 0.9 %; Eosinophils # (A) 0.56 10*3/uL (0.04-0.35); Eosinophils % (A) 4.9 %; HCT 40.7 % (39.6-50.0); HGB 13.1 g/dL (13.0-17.0); Lymphocytes # (A) 1.58 10*3/uL (0.90-5.00); Lymphocytes % (A) 13.9 %; MCH 31.2 pg (27.0-32.0); MCHC 32.2 g/dL (32.0-37.0); MCV 96.9 fL (80.0-97.0); Monocytes # (A) 1.15 10*3/uL (0.20-1.00); Monocytes % (A) 10.1 %; Neutrophils # (A) 7.89 10*3/uL (1.80-7.70); Neutrophils % (A) 69.4 %; Platelet Count 269 10*3/uL (140-440); RBC 4.20 10*6/uL (4.40-5.60); RDW 15.6 % (11.5-14.5); WBC 11.37 10*3/uL (4.50-10.00)
[2024-11-09 13:53] LABS: ALT 15 U/L (4-49); African American GFR (CKD) 61 (>60 ml/min/1.73 sqM); Albumin 4.1 g/dL (3.5-5.0); Anion Gap 11 mmol/L; Blood Urea Nitrogen 21 mg/dL (9-20); Calcium 9.5 mg/dL (8.4-10.2); Carbon Dioxide 26 mmol/L (22-30); Chloride 105 mmol/L (98-107); Glucose 89 mg/dL (74-99); Non-African American GFR(CKD) 53 (>60 ml/min/1.73 sqM); Sodium 142 mmol/L (137-145); Total Protein 7.7 g/dL (6.3-8.2)
[2024-11-09 14:00] LABS: AST 34 U/L (17-59); Alkaline Phosphatase 89 U/L (38-126); Potassium 5.2 mmol/L (3.5-5.1)
--- NOTE | 2024-11-09 14:07 | ED ---
Lower Extremity Injury HPI - General Chief Complaint: Extremity Injury, Lower Stated Complaint: Recheck-R leg sore Time Seen by Provider: 11/09/24 14:01 Source: patient, RN notes reviewed Mode of arrival: ambulatory Limitations: no limitations - History of Present Illness Initial Comments: 84-year-old male presenting for right leg injury 2 weeks ago. Patient states he was involved in a traumatic injury 2 weeks ago where he had an episode of syncope and a fall. Patient was recently admitted for this where they performed various tests of his brain and his heart and he was just discharged yesterday. States he is having concerns about his right upper leg as there is a large hematoma that is starting to drain pus. States while he was hospitalized they did put a dressing on it and take an x-ray of the leg and told him it was not fractured. Denies fevers, nausea, vomiting. - Related Data Home Medications Medication Instructions Recorded Confirmed Apixaban [Eliquis] 5 mg PO BID@0900,209902/16/24 11/05/24 Vibegron [Gemtesa] 75 mg PO DAILY@89902/16/24 11/05/24 Levothyroxine Sodium [Synthroid] 137 mcg PO DAILY@59910/26/24 11/05/24 Hyoscyamine Sulfate [Levbid] 0.375 mg PO BID@0900,209911/05/24 11/05/24 Omeprazole 20 mg PO DAILY@89911/05/24 11/05/24 Previous Rx's Medication Instructions Recorded Acetaminophen Tab [Tylenol] 325 mg PO Q6HR PRN tab 10/31/24 Dapagliflozin Propanediol [Farxiga] 10 mg PO DAILY@0900 #30 tab 11/08/24 Furosemide [Lasix] 40 mg PO DAILY@0600 #30 tab 11/08/24 Meclizine HCl 12.5 mg PO TID PRN #60 tab 11/08/24 Potassium Chloride ER [K-Dur 20] 20 meq PO DAILY@0900 #30 tab 11/08/24 levETIRAcetam [Keppra] 750 mg PO BID 30 Days #60 tab 11/08/24 Cephalexin [Keflex] 500 mg PO Q6HR 7 Days #28 cap 11/09/24 Sulfamethox-Tmp 800-160Mg [Bactrim 1 each PO Q12HR 7 Days #14 tab 11/09/24 Ds] Allergies Allergy/AdvReac Type Severity Reaction Status Date / Time Iodinated Contrast Media AdvReac Chest Pain Verified 11/09/24 12:33 tetanus immune globulin AdvReac Chest Pain Verified 11/09/24 12:33 Review of Systems ROS Statement: Those systems with pertinent positive or pertinent negative responses have been documented in the HPI. ROS Other: All systems not noted in ROS Statement are negative. Past Medical History Past Medical History: Atrial Fibrillation, Hypertension, Sleep Apnea/CPAP/BIPAP Additional Past Medical History / Comment(s): Previous TAVR for Aortic valve disease History of Any Multi-Drug Resistant Organisms: None Reported Past Surgical History: Cardiac Valve Replacement, Heart Catheterization, Prostate Surgery Additional Past Surgical History / Comment(s): TAVR in 2021 Past Anesthesia/Blood Transfusion Reactions: No Reported Reaction Past Psychological History: Anxiety Smoking Status: Former smoker Past Alcohol Use History: None Reported Past Drug Use History: None Reported - Past Family History Mother Family Medical History: Hypertension General Exam Limitations: no limitations General appearance: alert, in no apparent distress Head exam: Present: atraumatic, normocephalic, normal inspection Right Hip exam: Present: normal inspection, full ROM. Absent: tenderness, swelling Upper Leg exam: Present: full ROM, tenderness, swelling, erythema. Absent: normal inspection (There is a large 6 x 6 cm area of black, tissue with surrounding fluctuant, warm edema on medial aspect of right thigh. Mild amount of yellow thin drainage around wound), deformity Knee exam: Present: normal inspection, full ROM. Absent: tenderness, swelling Lower Leg exam: Present: normal inspection, full ROM, tenderness (Mild calf tenderness). Absent: swelling Ankle exam: Present: normal inspection, full ROM. Absent: tenderness, swelling Neurovascular tendon exam: Present: no vascular compromise. Absent: pulse deficit, abnormal cap refill, motor deficit, sensory deficit Neurological exam: Present: alert, oriented X3 Psychiatric exam: Present: normal affect, normal mood Skin exam: Present: warm, dry, intact, normal color. Absent: rash Course Vital Signs 11/09/24 11/09/24 12:25 17:05 Temperature 97.6 F 98.0 F Pulse Rate 68 76 Respiratory 18 18 Rate Blood Pressure 111/72 116/80 O2 Sat by Pulse 98 99 Oximetry Medical Decision Making - Medical Decision Making Was pt. sent in by a medical professional or institution (JOE Martino, SENIOR JAVASCRIPT DEVELOPER, urgent care, hospital, or detention...) When possible be specific @ -No Did you speak to anyone other than the patient for history (EMS, parent, family, police, friend...)? What history was obtained from this source @ -No Did you review nursing and triage notes (agree or disagree)? Why? @ -I reviewed and agree with nursing and triage notes Were old charts reviewed (outside hosp., previous admission, EMS record, old EKG, old radiological studies, urgent care reports/EKG's, detention records)? Report findings @ -No old charts were reviewed Differential Diagnosis (chest pain, altered mental status, abdominal pain women, abdominal pain men, vaginal bleeding, weakness, fever, dyspnea, syncope, headache, dizziness, GI bleed, back pain, seizure, CVA, palpatations, mental health, musculoskeletal)? @ -Differential Musculoskeletal Muscular strain, contusion, ligament sprain, fracture, arthritis, septic arthritis, bursitis, cellulitis, muscle spasm, nerve compression, DVT, arterial occlusion, herpes zoster, electrolyte abnormality, tumor.... This is not meant to be in all inclusive list EKG interpreted by me (3pts min.). @ -As above X-rays interpreted by me (1pt min.). @ -X-ray right femur reveals no acute osseous abnormality CT interpreted by me (1pt min.). @ -None done U/S interpreted by me (1pt. min.). @ -Ultrasound right lower extremity negative for DVT, ultrasound nonvascular reveals large suspected hematoma 6.9 x 6.0 cm What testing was considered but not performed or refused? (CT, X-rays, U/S, labs)? Why? @ -None What meds were considered but not given or refused? Why? @ -None Did you discuss the management of the patient with other professionals (professionals i.e. JOE Martino, SENIOR JAVASCRIPT DEVELOPER, lab, RT, psych nurse, child welfare social worker, caretaker grounds, teacher, precinct commanding officer, case finishing machine adjuster)? Give summary @ -No Was smoking cessation discussed for >3mins.? @ -No Was critical care preformed (if so, how long)? @ -No Were there social determinants of health that impacted care today? How? ( Homelessness, low income, unemployed, alcoholism, drug addiction, transportation, low edu. Level, literacy, decrease access to med. care, nursing home, rehab)? @ -No Was there de-escalation of care discussed even if they declined (Discuss DNR or withdrawal of care, Hospice)? DNR status @ -No What co-morbidities impacted this encounter? (DM, HTN, Smoking, COPD, CAD, Cancer, CVA, ARF, Chemo, Hep., AIDS, mental health diagnosis, sleep apnea, morbid obesity)? @ -None Was patient admitted / discharged? Hospital course, mention meds given and route, prescriptions, significant lab abnormalities, going to OR and other pertinent info. @ -Discharge. 84-year-old male presenting for right upper leg hematoma status post injury 2 weeks ago. Large hematoma present to medial right upper leg with overlying eschar. Minimal active drainage. DP pulses present and equal bilaterally. Patient was provided with Tylenol. Lab work remarkable for white blood cell count 11, otherwise unremarkable. X-ray right femur reveals no acute osseous abnormality. Ultrasound reveals a large suspected hematoma 6.9 x 6.0 cm. Discussed results with patient. Discussed diagnosis of hematoma with overlying eschar. Will provide patient with outpatient course of antibiotics and advised close follow-up with PCP and strict return precautions. Case was discussed in detail with my ED attending Dr. Kinney Undiagnosed new problem with uncertain prognosis? @ -No Drug Therapy requiring intensive monitoring for toxicity (Heparin, Nitro, Insulin, Cardizem)? @ -No Were any procedures done? @ -No Diagnosis/symptom? @ -Right upper leg hematoma Acute, or Chronic, or Acute on Chronic? @ -Acute Uncomplicated (without systemic symptoms) or Complicated (systemic symptoms)? @ -Uncomplicated Side effects of treatment? @ -No Exacerbation, Progression, or Severe Exacerbation? @ -No Poses a threat to life or bodily function? How? (Chest pain, USA, PR, pneumonia, PE, COPD, DKA, ARF, appy, cholecystitis, CVA, Diverticulitis, Homicidal, Suicidal, threat to staff... and all critical care pts) @ -No - Lab Data Result diagrams: 11/09/24 13:30 11/09/24 13:30 Lab Results 11/09/24 11/09/24 Range/Units 13:30 13:30 WBC 11.37 H (4.50-10.00) 10*3/uL RBC 4.20 L (4.40-5.60) 10*6/uL Hgb 13.1 (13.0-17.0) g/dL Hct 40.7 (39.6-50.0) % MCV 96.9 (80.0-97.0) fL MCH 31.2 (27.0-32.0) pg MCHC 32.2 (32.0-37.0) g/dL Plt Count 269 (140-440) 10*3/uL MPV 9.8 (9.5-12.2) fL Immature Gran % (Auto) 0.8 % Neutrophils % 69.4 % Lymphocytes % 13.9 % Monocytes % 10.1 % Eosinophils % 4.9 % Basophils % 0.9 % Immature Gran # 0.09 H (0.00-0.04) 10*3/uL Neutrophils # 7.89 H (1.80-7.70) 10*3/uL Lymphocytes # 1.58 (0.90-5.00) 10*3/uL Monocytes # 1.15 H (0.20-1.00) 10*3/uL Eosinophils # 0.56 H (0.04-0.35) 10*3/uL Basophils # 0.10 (0.00-0.10) 10*3/uL Sodium 142 (137-145) mmol/L Potassium 5.2 H (3.5-5.1) mmol/L Chloride 105 (98-107) mmol/L Carbon Dioxide 26 (22-30) mmol/L Anion Gap 11 mmol/L BUN 21 H (9-20) mg/dL Creatinine 1.24 (0.66-1.25) mg/dL Est GFR (CKD-EPI)AfAm 61 (>60 ml/min/1.73 sqM) Est GFR (CKD-EPI)NonAf 53 (>60 ml/min/1.73 sqM) Glucose 89 (74-99) mg/dL Calcium 9.5 (8.4-10.2) mg/dL Total Bilirubin 2.3 H (0.2-1.3) mg/dL AST 34 (17-59) U/L ALT 15 (4-49) U/L Alkaline Phosphatase 89 (38-126) U/L Total Protein 7.7 (6.3-8.2) g/dL Albumin 4.1 (3.5-5.0) g/dL Disposition Clinical Impression: Hematoma of right thigh Disposition: HOME SELF-CARE Condition: Stable Instructions (If sedation given, give patient instructions): Bone Bruise (ED) Additional Instructions: Take Keflex and Bactrim as prescribed. Follow-up with your doctor closely as discussed. Please return to the Emergency Department if symptoms worsen or any other concerns. Prescriptions: Sulfamethox-Tmp 800-160Mg [Bactrim Ds] 1 each PO Q12HR 7 Days #14 tab Cephalexin [Keflex] 500 mg PO Q6HR 7 Days #28 cap Is patient prescribed a controlled substance at d/c from ED?: No Referrals: Juan Carlos Arnold DO [Primary Care Provider] - 1-2 days Time of Disposition: 16:54
--- NOTE | 2024-11-09 14:42 | US ---
EXAMINATION TYPE: US extremity nonvasc mass RT DATE OF EXAM: 11/09/2024 COMPARISON: NONE CLINICAL INDICATION: Male, 84 years old with history of right leg hematoma; Rt leg hematoma above kne e patient fell. TECHNIQUE: Grayscale imaging of the leg above the knee. FINDINGS: Hypoechoic area seen fluid collection most compatible with hematoma given history. Area me asures 6.9 x 6.0 cm. No significant lymphadenopathy. IMPRESSION: Large suspected hematoma. This 6.9 x 6.0 cm. [facility], , 11/09/2024 2:39 PM
--- NOTE | 2024-11-09 14:43 | US ---
EXAMINATION TYPE: US venous doppler duplex LE RT DATE OF EXAM: 11/09/2024 2:14 PM COMPARISON: NONE CLINICAL INDICATION: Male, 84 years old with history of pain; Pain and swelling from fall. , Pain TECHNIQUE: The lower extremity deep venous system is examined utilizing real time linear array sonog joe with graded compression, color doppler sonography, and spectral doppler. SIDE PERFORMED: Right FINDINGS: VESSELS IMAGED: Common Femoral Vein Deep Femoral Vein Greater Saphenous Vein * Femoral Vein Popliteal Vein Small Saphenous Vein * Proximal Calf Veins (* superficial vessels) Right Leg: Negative for DVT, Color Doppler imaging shows patency of the vessels. Spectral waveforms are within normal limits. IMPRESSION: No ultrasound evidence for deep venous thrombosis. [facility], , 11/09/2024 2:40 PM
--- NOTE | 2024-11-09 15:32 | XR ---
EXAMINATION TYPE: XR femur RT DATE OF EXAM: 11/09/2024 3:14 PM COMPARISON: None CLINICAL INDICATION: Male, 84 years old with history of right upper leg injury/infection; PHH, pain TECHNIQUE: XR femur RT examined in Frontal and lateral projections. FINDINGS: No evidence of acute osseous pathology, joint dislocation, or soft tissue swelling. 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 Mild joint space narrowing. Surgical clips proje ct throughout the pelvis. Degeneration changes of the knee with joint space and osteophyte formation present. IMPRESSION: 1. No acute osseous pathology. 2. 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 [facility], , 11/09/2024 3:29 PM
[2024-11-09 17:06] VITALS: BP 116/80; PULSE 76; TEMP 98
== END 2024-11-09 17:06 | disposition home or self-care (01) ==
LOC: EC 12:24
DX: S70.11XA Contusion of right thigh, initial encounter (principal); Z87.891 Personal history of nicotine dependence; Z91.041 Radiographic dye allergy status; Z88.7 Allergy status to serum and vaccine; W19.XXXA Unspecified fall, initial encounter
CPT/HCPCS: 36415; 80053; 85025; 99284